=== PATIENT | male | born 1965 | race Caucasian/White ===

== ENCOUNTER 2016-03-23 15:27 | Outpatient (RCR) | payer MEDICARE, MEDICAID ==
--- OUTSIDE RECORDS SUMMARY | 2016-03-16 08:58 | XMS REPORT | Continuity of Care Document ---
Author Author [facility] Organization [facility] Address Unknown Phone Unavailable Care Team Providers Care Coat Operator Insulator Name Role Phone BRIDGETT RIVERA MD PCP Insurance Providers Payer Name Policy Number Subscriber Name Relationship Wps Medicare [id number] Jaleel Soliman 18 Self / Same As Patient [facility] [employer]p [id number] Jaleel Soliman 18 Self / Same As Patient Advance Directives Directive Response Recorded Date/Time Advance Directives No 07/30/14 9:42am Health Care Power of State Patrol Officer Y Sister Kimmy Barajas 07/30/14 9:42am Organ Donor No 07/30/14 9:42am Resuscitation Status Full Code 07/30/14 9:42am Problems Medical Problems Problem Onset Date Status Hyperthermia Unknown Active Sepsis Unknown Active Medications Medication Dose Route Sig Days/Qty Instructions Order Date Discontinued Date Status Bethanechol Chloride 50 Mg PO THREE TIMES A DAY 10/20/13 Active Phenytoin Sodium 400 Mg PO BEDTIME TAKE 3 (100MG) TABS 10/20/13 Discontinued Furosemide (Lasix) 20 Mg PO DAILY 10/20/13 11/01/13 Discontinued Atenolol 25 Mg PO DAILY 10/20/13 Active Loratadine 10 Mg PO DAILY PRN EYE REDNESS 10/20/13 05/07/14 Discontinued Simvastatin 40 Mg PO BEDTIME 10/20/13 05/07/14 Discontinued Hydrochlorothiazide 25 Mg PO DAILY 10/30/13 11/01/13 Discontinued Alprazolam 0.25 Mg PO THREE TIMES A DAY PRN ANXIETY 11/01/13 Discontinued Tamsulosin HCl 0.4 Mg PO AFTER EVENING MEAL 02/05/14 05/07/14 Discontinued Phenytoin Sodium 400 Mg PO BEDTIME 02/07/14 05/07/14 Discontinued Multivitamin 1 Tab PO DAILY 04/27/14 05/07/14 Discontinued Acidophilus 1 Tab.chew PO BEFORE MEALS 30 Qty 05/07/14 05/21/14 Discontinued [Phenytoin Sodium] 400 Mg PO BEDTIME 30 Days 05/07/14 05/21/14 Discontinued Multivitamins/Minerals Therap 1 Ea PO DAILY@07 30 Days 05/07/14 Discontinued [Loratadine] 10 Mg PO DAILY PRN EYE REDNESS 14 Qty 05/07/14 05/21/14 Discontinued Tamsulosin HCl 0.4 Mg PO DAILY 30 Days 05/07/14 05/21/14 Discontinued [Simvastatin] 40 Mg PO BEDTIME 30 Days 05/07/14 05/21/14 Discontinued Acidophilus 1 Tab.chew PO BEFORE MEALS 05/21/14 07/30/14 Discontinued Phenytoin Sodium 300 Mg PO BEDTIME TAKES 3 (100MG) CAPSULES 05/21/14 Active Multivitamin 1 Tab PO DAILY 05/21/14 07/30/14 Discontinued Loratadine 10 Mg PO DAILY PRN ALLERGIES 05/21/14 Active Tamsulosin HCl 0.4 Mg PO AFTER EVENING MEAL 05/21/14 Active Simvastatin 40 Mg PO BEDTIME 05/21/14 Active Furosemide (Lasix) 1 Each PO DAILY 07/30/14 Active Hydrochlorothiazide 25 Mg PO DAILY 07/30/14 Active Social History Social History Problem Response Recorded Date/Time Alcohol Use Denies Use 05/19/2014 6:53pm Recreational Drug Use No 05/19/2014 6:53pm Recent Foreign Travel No 02/07/2014 7:27am Recent Infectious Disease Exposure No 02/07/2014 7:27am Hospitalization with Isolation Denies 02/10/2014 1:57pm Smoking Status Never a Smoker 07/30/2014 9:44am Query Response Start Date Stop Date Smoking Status Never a Smoker Hospital Discharge Instructions No hospital discharge instructions. Plan of Care No plan of care. Functional Status No functional status results. Allergies, Adverse Reactions, Alerts Allergen Type Severity Reaction Status Last Updated No Known Drug Allergies Active 07/07/13 Immunizations Name Given Type Date of Pneumonia Vaccine 02/09/14 Historical Date of Influenza Vaccine 02/09/14 Historical Hepatitis A No Historical Hepatitis B No Historical Tetanus Booster (TDap) Unknown Historical Vital Signs Acute Vital Signs Vital Response Date/Time Temperature (Fahrenheit) 98.5 degrees F (97.6 - 99.5) Temperature (Calculated Celsius) 36.78004 degrees C (36.4 - 37.5) Temperature Source Tympanic Pulse Rate (adult) 103 bpm (60 - 90) Respiratory Rate 20 bpm (12 - 24) O2 Sat by Pulse Oximetry 98 % (88 - 100) Blood Pressure 127/79 mm Hg Pain Pain Intensity 0 Height (Feet) 5 feet Height (Inches) 8.00 inches Height (Calculated Centimeters) 172.777054 cm Weight (Pounds) 141 pounds Weight (Ounces) 12.8 oz Weight (Calculated Grams) 14069.399 gm Weight (Calculated Kilograms) 64.068361 kilograms Height 5 ft 8 in Weight 141 lb Body Mass Index 21.6 kg/m^2 Results Laboratory Results Test Name Result Units Flags Reference Collection Date/Time Result Date/ Time Comments White Blood Count 4.9 10^3/uL 4.3-11.0 06/26/2014 3:12pm 06/26/2014 3: 15pm Red Blood Count 3.84 10^6/uL L 4.35-5.85 06/26/2014 3:12p06/26/2014 3: 15pm Hemoglobin 11.9 G/DL L 13.3-17.7 06/26/2014 3:12p06/26/2014 3:15pm Hematocrit 36 % L 40-54 06/26/2014 3:12pm 06/26/2014 3:15pm Mean Corpuscular Volume 93 FL 80-99 06/26/2014 3:12p06/26/2014 3: 15pm Mean Corpuscular Hemoglobin 31 PG 25-34 06/26/2014 3:12p06/26/2014 3: 15pm Mean Corpuscular Hemoglobin Concent 33 G/DL 32-36 06/26/2014 3: 3:15pm Red Cell Distribution Width 14.0 % 10.0-14.5 06/26/2014 3:2014 3:15pm Platelet Count 195 10^3/uL 130-400 06/26/2014 3:06/26/2014 3:15pm Mean Platelet Volume 9.4 FL 7.4-10.4 06/26/2014 3:06/26/2014 3: 15pm Neutrophils (%) (Auto) 73 % 42-75 06/26/2014 3:06/26/2014 3:15pm Lymphocytes (%) (Auto) 16 % 12-44 06/26/2014 3:06/26/2014 3:15pm Monocytes (%) (Auto) 10 % 0-12 06/26/2014 3:06/26/2014 3:15pm Eosinophils (%) (Auto) 1 % 0-10 06/26/2014 3:06/26/2014 3:15pm Basophils (%) (Auto) 0 % 0-10 06/26/2014 3:06/26/2014 3:15pm Neutrophils # (Auto) 3.6 X 10^3 1.8-7.8 06/26/2014 3:06/26/2014 3: 15pm Lymphocytes # (Auto) 0.8 X 10^3 L 1.0-4.0 06/26/2014 3:06/26/2014 3: 15pm Monocytes # (Auto) 0.5 X 10^3 0.0-1.0 06/26/2014 3:06/26/2014 3: 15pm Eosinophils # (Auto) 0.0 10^3/uL 0.0-0.3 06/26/2014 3:06/26/2014 3 :15pm Basophils # (Auto) 0.0 10^3/uL 0.0-0.1 06/26/2014 3:06/26/2014 3: 15pm Sodium Level 141 MMOL/L 135-145 06/26/2014 3:06/26/2014 3:43pm Potassium Level 4.8 MMOL/L 3.6-5.0 06/26/2014 3:06/26/2014 3:43pm Chloride Level 105 MMOL/L 98-107 06/26/2014 3:06/26/2014 3:43pm Carbon Dioxide Level 28 MMOL/L 21-32 06/26/2014 3:06/26/2014 3: 43pm Blood Urea Nitrogen 12 MG/DL 7-18 06/26/2014 3:06/26/2014 3:43pm Creatinine 1.00 MG/DL 0.60-1.30 06/26/2014 3:06/26/2014 3:43pm BUN/Creatinine Ratio 06/26/2014 3:06/26/2014 3:43pm Estimat Glomerular Filtration Rate > 60 06/26/2014 3:2014 3:43pm GFR INTERPRETIVE DATA UNITS FOR ESTIMATED GFR (eGFR): mL/min/1.73 M2 REFERENCE RANGE FOR ESTIMATED GFR (eGFR) eGFR NORMAL eGFR >60 MODERATELY DECREASED eGFR 30-59 SEVERLY DECREASED eGFR 15-29 KIDNEY FAILURE <15 (OR DIALYSIS) Glucose Level 99 MG/DL 70-105 06/26/2014 3:06/26/2014 3:43pm Calcium Level 9.1 MG/DL 8.5-10.1 06/26/2014 3:06/26/2014 3:43pm Magnesium Level 1.7 MG/DL L 1.8-2.4 04/17/2014 10:55am 04/17/2014 11: 32am Total Bilirubin 0.3 MG/DL 0.1-1.0 06/26/2014 3:06/26/2014 3:43pm Alkaline Phosphatase 175 U/L H 40-136 06/26/2014 3:06/26/2014 3: 43pm Aspartate Amino Transf (AST/SGOT) 23 U/L 5-34 06/26/2014 3:2014 3:43pm Alanine Aminotransferase (ALT/SGPT) 10 U/L 0-55 06/26/2014 3:06/26 3:43pm Total Protein 6.4 G/DL 6.4-8.2 06/26/2014 3:06/26/2014 3:43pm Albumin 3.5 G/DL 3.2-4.5 06/26/2014 3:06/26/2014 3:43pm Thyroid Stimulating Hormone (TSH) 2.21 UIU/ML 0.35-4.94 06/26/2014 3: 12pm 06/26/2014 4:37pm Free Thyroxine 0.72 NG/DL 0.70-1.48 06/26/2014 3:12pm 06/26/2014 4: 37pm White Blood Count 4.7 10^3/uL 4.3-11.0 07/24/2014 2:59pm 07/24/2014 3: 03pm Red Blood Count 4.16 10^6/uL L 4.35-5.85 07/24/2014 2:59pm 07/24/2014 3: 03pm Hemoglobin 12.8 G/DL L 13.3-17.7 07/24/2014 2:59pm 07/24/2014 3:03pm Hematocrit 38 % L 40-54 07/24/2014 2:59pm 07/24/2014 3:03pm Mean Corpuscular Volume 92 FL 80-99 07/24/2014 2:59pm 07/24/2014 3: 03pm Mean Corpuscular Hemoglobin 31 PG 25-34 07/24/2014 2:59pm 07/24/2014 3: 03pm Mean Corpuscular Hemoglobin Concent 33 G/DL 32-36 07/24/2014 2:59pm 3:03pm Red Cell Distribution Width 13.2 % 10.0-14.5 07/24/2014 2:59pm 2014 3:03pm Platelet Count 163 10^3/uL 130-400 07/24/2014 2:59pm 07/24/2014 3:03pm Mean Platelet Volume 10.6 FL H 7.4-10.4 07/24/2014 2:59pm 07/24/2014 3: 03pm Neutrophils (%) (Auto) 73 % 42-75 07/24/2014 2:59pm 07/24/2014 3:03pm Lymphocytes (%) (Auto) 17 % 12-44 07/24/2014 2:59pm 07/24/2014 3:03pm Monocytes (%) (Auto) 9 % 0-12 07/24/2014 2:59pm 07/24/2014 3:03pm Eosinophils (%) (Auto) 1 % 0-10 07/24/2014 2:59pm 07/24/2014 3:03pm Basophils (%) (Auto) 0 % 0-10 07/24/2014 2:59pm 07/24/2014 3:03pm Neutrophils # (Auto) 3.4 X 10^3 1.8-7.8 07/24/2014 2:59pm 07/24/2014 3: 03pm Lymphocytes # (Auto) 0.8 X 10^3 L 1.0-4.0 07/24/2014 2:59pm 07/24/2014 3: 03pm Monocytes # (Auto) 0.4 X 10^3 0.0-1.0 07/24/2014 2:59pm 07/24/2014 3: 03pm Eosinophils # (Auto) 0.0 10^3/uL 0.0-0.3 07/24/2014 2:59pm 07/24/2014 3 :03pm Basophils # (Auto) 0.0 10^3/uL 0.0-0.1 07/24/2014 2:59pm 07/24/2014 3: 03pm Sodium Level 142 MMOL/L 135-145 07/24/2014 2:59pm 07/24/2014 3:37pm Potassium Level 4.3 MMOL/L 3.6-5.0 07/24/2014 2:59pm 07/24/2014 3:37pm Chloride Level 107 MMOL/L 98-107 07/24/2014 2:59pm 07/24/2014 3:37pm Carbon Dioxide Level 25 MMOL/L 21-32 07/24/2014 2:59pm 07/24/2014 3: 37pm Blood Urea Nitrogen 11 MG/DL 7-18 07/24/2014 2:59pm 07/24/2014 3:37pm Creatinine 1.09 MG/DL 0.60-1.30 07/24/2014 2:59pm 07/24/2014 3:37pm BUN/Creatinine Ratio 10 07/24/2014 2:59pm 07/24/2014 3:37pm Estimat Glomerular Filtration Rate > 60 07/24/2014 2:59pm 2014 3:37pm GFR INTERPRETIVE DATA UNITS FOR ESTIMATED GFR (eGFR): mL/min/1.73 M2 REFERENCE RANGE FOR ESTIMATED GFR (eGFR) eGFR NORMAL eGFR >60 MODERATELY DECREASED eGFR 30-59 SEVERLY DECREASED eGFR 15-29 KIDNEY FAILURE <15 (OR DIALYSIS) Glucose Level 83 MG/DL 70-105 07/24/2014 2:59pm 07/24/2014 3:37pm Calcium Level 9.2 MG/DL 8.5-10.1 07/24/2014 2:59pm 07/24/2014 3:37pm Magnesium Level 2.0 MG/DL 1.8-2.4 07/24/2014 2:59pm 07/24/2014 3:37pm Total Bilirubin 0.3 MG/DL 0.1-1.0 07/24/2014 2:59pm 07/24/2014 3:37pm Alkaline Phosphatase 160 U/L H 40-136 07/24/2014 2:59pm 07/24/2014 3: 37pm Aspartate Amino Transf (AST/SGOT) 27 U/L 5-34 07/24/2014 2:59pm 2014 3:37pm Alanine Aminotransferase (ALT/SGPT) 17 U/L 0-55 07/24/2014 2:59pm 07/24 3:37pm Total Protein 6.8 G/DL 6.4-8.2 07/24/2014 2:59pm 07/24/2014 3:37pm Albumin 3.8 G/DL 3.2-4.5 07/24/2014 2:59pm 07/24/2014 3:37pm Procedures Procedure Status Date Provider(s) Diagnostic colonoscopy completed 07/30/14 CELINE PELAEZ MD Encounters Encounter Location Date/Time Registered Surgical Day Care [facility] 07/30/14 9:08am Registered Clinic Via [facility] 07/26/14 6:05am Registered Recurring [facility] 07/24/14 2:52pm Discharged Recurring [facility] 04/04/14 9:13am
[2016-03-16 09:43] LABS: BASOPHILS % (AUTO) 0 % (0-10); EOSINOPHILS # (AUTO) 0.1 10^3/uL (0.0-0.3); EOSINOPHILS % (AUTO) 1 % (0-10); LYMPHOCYTES # (AUTO) 0.7 X 10^3 (1.0-4.0); LYMPHOCYTES % (AUTO) 11 % (12-44); MEAN CORPUSCULAR HEMOGLOBIN 32 PG (25-34); MEAN CORPUSCULAR HGB CONC 35 G/DL (32-36); MEAN CORPUSCULAR VOLUME 90 FL (80-99); MEAN PLATELET VOLUME 11.1 FL (7.4-10.4); MONOCYTES # (AUTO) 0.6 X 10^3 (0.0-1.0); MONOCYTES % (AUTO) 9 % (0-12); NEUTROPHILS # (AUTO) 4.9 X 10^3 (1.8-7.8); NEUTROPHILS % (AUTO) 78 % (42-75); PLATELET COUNT 138 10^3/uL (130-400); RED BLOOD COUNT 4.63 10^6/uL (4.35-5.85); RED CELL DISTRIBUTION WIDTH 13.4 % (10.0-14.5); WHITE BLOOD COUNT 6.3 10^3/uL (4.3-11.0)
[2016-03-16 10:10] LABS: CREATININE SERUM 1.37 MG/DL (0.60-1.30); POTASSIUM 3.6 MMOL/L (3.6-5.0)
[2016-03-16 10:11] LABS: ALBUMIN 4.3 G/DL (3.2-4.5); BILIRUBIN,TOTAL 0.4 MG/DL (0.1-1.0); CALCIUM 9.5 MG/DL (8.5-10.1); TOTAL PROTEIN 7.2 G/DL (6.4-8.2)
[~2016-03-23 15:27] MED LIST: ACID1TAB PO; ACID1TAB5 PO; ALPR.25T PO; ATEN-147 PO; BETH50TA PO; FURO20TA4 PO; HCTZ12.5T PO; HYDR25TA4 PO; LORA10TA7 PO; LORA10TA76 PO; Loratadine PO; MULT-974 PO; MULT1TAB63 PO; PHEN-633 PO; PHN100C PO; Phenytoin Sodium PO; SIMV40TA4 PO; Simvastatin PO; TMSL.4C PO; Tramadol Hcl PO
== END 2016-06-14 | disposition home or self-care (01) ==
LOC: ONC 15:27
PROVIDERS: ATTEND Internal Medicine Hematology & Oncology
DX: C20 Malignant neoplasm of rectum (principal); I10 Essential (primary) hypertension; N13.5 Crossing vessel and stricture of ureter without hydronephrosis; N31.9 Neuromuscular dysfunction of bladder, unspecified; E78.5 Hyperlipidemia, unspecified; F70 Mild intellectual disabilities
CPT/HCPCS: 36415; 80053; 82378; 85025; 99213

== ENCOUNTER → 2016-06-18 | Outpatient (CLI) | payer MEDICARE, MEDICAID ==
[~2016-06-18] MED LIST changes: +BARIUM SUSPENSION 2.1% (VANILLA SILQ) 450 ML PO ONE; +CATHETER FLUSH 10 ML SYR IV PRN; +IOHEXOL 350 MG/ML 100 ML (OMNIPAQUE 350) VIAL IV ONE; +NS 100 ML (IVPB) BAG IV ONE
--- OUTSIDE RECORDS SUMMARY | 2016-06-18 12:03 | XMS REPORT | Continuity of Care Document ---
Author Author [facility] Organization [facility] Address Unknown Phone Unavailable Care Team Providers Care Vocational Auto Body Instructor Name Role Phone BRIDGETT RIVERA MD PCP Insurance Providers Payer Name Policy Number Subscriber Name Relationship Wps Medicare [id number] Jaleel Soliman 16 Self / Same As Patient [facility] [employer] [id number] Jaleel Soliman 16 Self / Same As Patient Advance Directives Directive Response Recorded Date/Time Advance Directives No 07/30/14 9:42am Health Care Power of Meeting Manager Y Sister Kimmy Barajas 07/30/14 9:42am Organ [...] F (97.6 - 99.5) Temperature (Calculated Celsius) 36.42819 degrees C (36.4 - 37.5) Temperature Source Tympanic Pulse Rate (adult) 103 bpm (60 - 90) Respiratory Rate 20 bpm (12 - 24) O2 Sat by Pulse Oximetry 98 % (88 - 100) Blood Pressure 127/79 mm Hg Pain Pain Intensity 0 Height (Feet) 5 feet Height (Inches) 8.00 inches Height (Calculated Centimeters) 172.987922 cm Weight (Pounds) 141 pounds Weight (Ounces) 12.8 oz Weight (Calculated Grams) 32649.399 gm Weight (Calculated Kilograms) 64.466335 kilograms Height 5 ft 8 in Weight [...] Location Date/Time Registered Surgical Day Care [facility] 07/30/14 9:08am Registered Clinic [facility] 07/26/14 6:05am Registered Recurring [facility] 07/24/14 2:52pm Discharged Recurring [facility] 04/04/14 9:13am
--- NOTE | 2016-06-18 15:29 | Diagnostic Imaging Report ---
PROCEDURE: CT abdomen and pelvis with contrast. TECHNIQUE: Multiple contiguous axial images were obtained through the abdomen and pelvis after administration of intravenous contrast. INDICATION: Rectal CA. Comparison with 03/16/2016. FINDINGS: The lung bases are clear. The liver appears normal. The gallbladder and bile ducts are normal. Pancreas and spleen are normal. The adrenal glands show a small fatty lesion on the left which is unchanged. There is bilateral hydronephrosis with the only a thin mantle of cortex remaining on the left. The right kidney shows UPJ stent present in good position. There is contrast in the bladder on delayed images indicating the UPJ stent is patent. There is good opacification of the aorta and abdominal vessels following IV contrast. The aorta appears normal. Oral contrast is present in the stomach and small bowel which are normal. The colon shows normal stool and gas pattern. There is some diverticulosis of the descending and sigmoid colon without evidence of diverticulitis. There is anastomotic suture ring in the lower rectum consistent with previous surgery. The perirectal tissue planes remain well preserved. Prostate and seminal vesicles are not enlarged. No adenopathy of pathologic size. There is no free air or free fluid. Bone windows show no blastic or lytic lesions. IMPRESSION: 1. No changes have occurred to suggest metastatic or recurrent malignancy. 2. Chronic renal changes are noted with right UPJ stent in good position and remaining patent. Dictated by: Dictated on workstation # [id number]
== END ==
LOC: RAD 12:00
PROVIDERS: ATTEND Internal Medicine Hematology & Oncology
DX: C20 Malignant neoplasm of rectum (principal); N13.39 Other hydronephrosis
CPT/HCPCS: 74177

== ENCOUNTER 2016-08-06 14:30 | Outpatient (RCR) | payer MEDICARE, MEDICAID ==
--- OUTSIDE RECORDS SUMMARY | 2016-06-17 15:44 | XMS REPORT | Continuity of Care Document ---
Author Author [facility] Organization [facility] Address Unknown Phone Unavailable Care Team Providers Care Compound Worker Name Role Phone BRIDGETT RIVERA MD PCP Insurance Providers Payer Name Policy Number Subscriber Name Relationship Wps Medicare [id number] Jaleel Soliman 18 Self / Same As Patient [facility] [employer] [id number] Jaleel Soliman 18 Self / Same As Patient Advance Directives Directive Response Recorded Date/Time Advance Directives No 07/30/14 9:42am Health Care Power of Veterinary Assistant Technician Y Sister Kimmy Barajas 07/30/14 9:42am Organ [...] F (97.6 - 99.5) Temperature (Calculated Celsius) 36.19112 degrees C (36.4 - 37.5) Temperature Source Tympanic Pulse Rate (adult) 103 bpm (60 - 90) Respiratory Rate 20 bpm (12 - 24) O2 Sat by Pulse Oximetry 98 % (88 - 100) Blood Pressure 127/79 mm Hg Pain Pain Intensity 0 Height (Feet) 5 feet Height (Inches) 8.00 inches Height (Calculated Centimeters) 172.057704 cm Weight (Pounds) 141 pounds Weight (Ounces) 12.8 oz Weight (Calculated Grams) 26763.399 gm Weight (Calculated Kilograms) 64.886838 kilograms Height 5 ft 8 in Weight [...] Location Date/Time Registered Surgical Day Care Via [facility] 07/30/14 9:08am Registered Clinic [facility] 07/26/14 6:05am Registered Recurring [facility] 07/24/14 2:52pm Discharged Recurring [facility] 04/04/14 9:13am
[2016-06-17 15:49] LABS: BASOPHILS % (AUTO) 0 % (0-10); EOSINOPHILS % (AUTO) 0 % (0-10); LYMPHOCYTES # (AUTO) 0.9 X 10^3 (1.0-4.0); LYMPHOCYTES % (AUTO) 10 % (12-44); MEAN CORPUSCULAR HEMOGLOBIN 31 PG (25-34); MEAN CORPUSCULAR HGB CONC 34 G/DL (32-36); MEAN CORPUSCULAR VOLUME 92 FL (80-99); MEAN PLATELET VOLUME 10.8 FL (7.4-10.4); MONOCYTES # (AUTO) 0.8 X 10^3 (0.0-1.0); MONOCYTES % (AUTO) 9 % (0-12); NEUTROPHILS # (AUTO) 7.5 X 10^3 (1.8-7.8); NEUTROPHILS % (AUTO) 81 % (42-75); PLATELET COUNT 131 10^3/uL (130-400); RED BLOOD COUNT 4.47 10^6/uL (4.35-5.85); RED CELL DISTRIBUTION WIDTH 13.6 % (10.0-14.5); WHITE BLOOD COUNT 9.2 10^3/uL (4.3-11.0)
[2016-06-17 16:10] LABS: ALANINE AMINOTRANSFERASE 25 U/L (0-55); ALBUMIN 4.1 G/DL (3.2-4.5); ANION GAP 9 MMOL/L (5-14); ASPARTATE AMINO TRANSFERASE 29 U/L (5-34); BILIRUBIN,TOTAL 0.4 MG/DL (0.1-1.0); BLOOD UREA NITROGEN 13 MG/DL (7-18); BUN/CREATININE RATIO 11; CALCIUM 8.7 MG/DL (8.5-10.1); CARBON DIOXIDE 25 MMOL/L (21-32); CHLORIDE 105 MMOL/L (98-107); CREATININE SERUM 1.23 MG/DL (0.60-1.30); GFR ESTIMATED > 60; GLUCOSE 84 MG/DL (70-105); POTASSIUM 4.5 MMOL/L (3.6-5.0); SODIUM 139 MMOL/L (135-145); TOTAL PROTEIN 6.8 G/DL (6.4-8.2)
[~2016-08-06 14:30] MED LIST changes: -BARIUM SUSPENSION 2.1% (VANILLA SILQ) 450 ML PO ONE; -CATHETER FLUSH 10 ML SYR IV PRN; -IOHEXOL 350 MG/ML 100 ML (OMNIPAQUE 350) VIAL IV ONE; -NS 100 ML (IVPB) BAG IV ONE
[2016-08-06 15:16] LABS: BASOPHILS % (AUTO) 0 % (0-10); EOSINOPHILS % (AUTO) 1 % (0-10); LYMPHOCYTES # (AUTO) 0.7 X 10^3 (1.0-4.0); LYMPHOCYTES % (AUTO) 10 % (12-44); MEAN CORPUSCULAR HEMOGLOBIN 31 PG (25-34); MEAN CORPUSCULAR HGB CONC 35 G/DL (32-36); MEAN CORPUSCULAR VOLUME 90 FL (80-99); MEAN PLATELET VOLUME 10.9 FL (7.4-10.4); MONOCYTES # (AUTO) 0.6 X 10^3 (0.0-1.0); MONOCYTES % (AUTO) 9 % (0-12); NEUTROPHILS # (AUTO) 5.3 X 10^3 (1.8-7.8); NEUTROPHILS % (AUTO) 80 % (42-75); PLATELET COUNT 159 10^3/uL (130-400); RED CELL DISTRIBUTION WIDTH 14.1 % (10.0-14.5); WHITE BLOOD COUNT 6.5 10^3/uL (4.3-11.0)
[2016-08-06 15:56] LABS: ALBUMIN 4.2 G/DL (3.2-4.5); BILIRUBIN,TOTAL 0.3 MG/DL (0.1-1.0); CALCIUM 9.5 MG/DL (8.5-10.1); CREATININE SERUM 1.44 MG/DL (0.60-1.30); TOTAL PROTEIN 7.1 G/DL (6.4-8.2)
== END 2016-09-15 | disposition home or self-care (01) ==
LOC: ONC 14:30
PROVIDERS: ATTEND Internal Medicine Hematology & Oncology
DX: C20 Malignant neoplasm of rectum (principal); I10 Essential (primary) hypertension; N13.5 Crossing vessel and stricture of ureter without hydronephrosis; N31.9 Neuromuscular dysfunction of bladder, unspecified; E78.5 Hyperlipidemia, unspecified; F70 Mild intellectual disabilities; Z79.899 Other long term (current) drug therapy
CPT/HCPCS: 36415; 80053; 82378; 85025; 99213

== ENCOUNTER 2016-12-10 13:22 | Emergency (ER) | payer MEDICAID, MEDICARE ==
[~2016-12-10] VITALS: Ht 175.3 cm; Wt 80.7 kg
--- OUTSIDE RECORDS SUMMARY | 2016-12-10 13:28 | XMS REPORT ---
Author Author KAREEM BARTHOLOMEW [facility] [employer] Address Unknown Phone Unavailable Care Team Providers Care Pairer Odds Name Role Phone KAREEM BARTHOLOMEW CP Unavailable Allergies, Adverse Reactions, Alerts Substance Reaction Event Type N.K.D.A. Info Not Available Non Drug Allergy Problems Problem Type Condition Code Onset Dates Condition Status Assessment Encounter for dental examination Z01.20 Active Problem Encounter for dental examination Z01.20 Active Medications Medication Code System Code Instructions Start Date End Date Status Dosage Dilantin [facility] [address]-93 100 MG Orally Three times a day 1 capsule Atenolol [facility] [address]-57 25 MG Orally Once a day 1 tablet Simvastatin [facility] [address]-25 40 MG Orally Once a day 1 tablet in the evening Procedures Procedure Coding System Code Date TOPICAL FLUORIDE VARNISH CPT-4 D1206 Feb 25, 2015 PROPHYLAXIS - ADULT CPT-4 D1110 Feb 25, 2015 Vital Signs Date/Time: Feb 25, 2015 Blood Pressure Diastolic 51 mmHg Blood Pressure Systolic 130 mmHg Cardiac Monitoring Heart Rate 49 bpm Results No Known Results Summary Purpose eClinicalWorks Submission
--- OUTSIDE RECORDS SUMMARY | 2016-12-10 13:28 | XMS REPORT ---
Author Author LEAH NJ [facility] [employer] Address Unknown Phone Unavailable Care Team Providers Care Vegetable Tier Name Role Phone LEAH [place] Unavailable Allergies No Known Allergies Problems Problem Type Condition ICD-9 Code Onset Dates Condition Status Assessment Dental examination V72.2 Active Medications No Known Medications Procedures Procedure Coding System Code Date RESIN COMPOS - ONE SURFACE ANTERIOR CPT-4 D2330 November 21, 2014 Results No Known Results Summary Purpose eClinicalWorks Submission
--- OUTSIDE RECORDS SUMMARY | 2016-12-10 13:28 | XMS REPORT ---
Author Author LEAH [place] [facility] [employer] Address Unknown Phone Unavailable Care Team Providers Care Gender Studies Professor Name Role Phone LEAH [place] CP Unavailable Allergies, Adverse Reactions, Alerts Substance Reaction Event Type N.K.D.A. Info Not Available Non Drug Allergy Problems Problem Type Condition Code Onset Dates Condition Status Problem Encounter for dental examination Z01.20 Active Assessment Dental examination Z01.20 Active Problem Encounter for dental examination and cleaning without abnormal findings Z01.20 Active Medications Medication Code System Code Instructions Start Date End Date Status Dosage Simvastatin [facility] [address]-13 40 MG Orally Once a day 1 tablet in the evening Atenolol [facility] [address]-43 25 MG Orally Once a day 1 tablet Dilantin [facility] [address]-72 100 MG Orally Three times a day 1 capsule Procedures Procedure Coding System Code Date RESIN COMPOS - 3 SURFACES ANTERIOR CPT-4 D2332 September 25, 2015 Billing Notes on claim CPT-4 EC109 September 25, 2015 RESIN COMPOS - 2 SURFACES ANTERIOR CPT-4 D2331 September 25, 2015 Vital Signs Date/Time: September 25, 2015 Blood Pressure Diastolic 67 mmHg Blood Pressure Systolic 121 mmHg Results No Known Results Summary Purpose eClinicalWorks Submission
--- OUTSIDE RECORDS SUMMARY | 2016-12-10 13:29 | XMS REPORT ---
Author FRANCINE Roberson [facility] [employer] Address Unknown Phone Unavailable Care Team Providers Care Hydraulic Lift Driver Name Role Phone FRANCINE HO CP Unavailable Allergies, Adverse Reactions, Alerts Substance Reaction Event Type N.K.D.A. Info Not Available Non Drug Allergy Problems Problem Type Condition Code Onset Dates Condition Status Problem Encounter for dental examination Z01.20 Active Assessment Dental examination Z01.20 Active Problem Encounter for dental examination and cleaning without abnormal findings Z01.20 Active Medications Medication Code System Code Instructions Start Date End Date Status Dosage Atenolol [facility] [address]-82 25 MG Orally Once a day 1 tablet Dilantin [facility] [address]-96 100 MG Orally Three times a day 1 capsule Simvastatin [facility] [address]-61 40 MG Orally Once a day 1 tablet in the evening Procedures Procedure Coding System Code Date PROPHYLAXIS - ADULT CPT-4 D1110 Feb 28, 2016 TOPICAL FLUORIDE VARNISH CPT-4 D1206 Feb 28, 2016 PERIODIC ORAL EXAMINATION CPT-4 D0120 Feb 28, 2016 Vital Signs Date/Time: Feb 28, 2016 Blood Pressure Diastolic 74 mmHg Blood Pressure Systolic 131 mmHg Results No Known Results Summary Purpose eClinicalWorks Submission
--- NOTE | 2016-12-10 13:45 | ED GU-Male ---
General Chief Complaint: -Male Stated Complaint: SWEATING,CANNOT URINATE,HAS A STINT Source: patient, family Exam Limitations: no limitations History of Present Illness Time seen by provider: 13:38 Initial Comments The patient is a 51-year-old white male who was brought to the emergency room by his sister. She reports that he has not been performing well this week and in fact the performance has been declining. He has told her that he was urinating but tells us he has not for 3 days. She brought him today because he was trembling and sweating. They are not aware of fever. He has had a previous partial colectomy for carcinoma. He has also had stenting of one kidney because of ureteral obstruction but otherwise apparent normal function. She states that the other kidney is basically nonfunctional. He seems unable to fully express himself. Timing/Duration: this morning Severity/Quality: moderate Location: unknown Radiation: none Activities at Onset: none Allergies and Home Medications Allergies Coded Allergies: No Known Drug Allergies (Unverified , 07/07/13) Home Medications Atenolol 25 Mg Tab, 25 MG PO DAILY, (Reported) Bethanechol Chloride 50 Mg Tablet, 50 MG PO TID, (Reported) Furosemide 20 Mg Tablet, 1 EACH PO DAILY, (Reported) Hydrochlorothiazide 12.5 Mg Cap, 25 MG PO DAILY, (Reported) Loratadine 10 Mg Tablet, 10 MG PO DAILY PRN for ALLERGIES, (Reported) Phenytoin Sodium 100 Mg Cap, 300 MG PO HS, (Reported) TAKES 3 (100MG) CAPSULES Simvastatin 40 Mg Tablet, 40 MG PO HS, (Reported) Tamsulosin Hcl 0.4 Mg Cap, 0.4 MG PO AFTER EVENING MEAL, (Reported) Constitutional: see HPI EENTM: no symptoms reported Respiratory: no symptoms reported Cardiovascular: no symptoms reported Gastrointestinal: loss of appetite, nausea Genitourinary: see HPI Musculoskeletal: muscle twitching, muscle weakness Skin: no symptoms reported Psychiatric/Neurological: No Symptoms Reported Endocrine: No Symptoms Reported Hematologic/Lymphatic: No Symptoms Reported Past Qsorvao-Uwhwbg-Ododne Hx Patient Social History Recent Foreign Travel: No Contact w/Someone Who Travel: No Immunizations Up To Date Tetanus Booster (TDap): Unknown PED Vaccines UTD: No Date of Pneumonia Vaccine: Feb 09, 2014 Date of Influenza Vaccine: Feb 09, 2014 Seasonal Allergies Seasonal Allergies: No Surgeries HX Surgeries: Yes (KIDNEY STENTS, BOWEL RESECTION) Surgeries: Bowel Surgery Respiratory Hx Respiratory Disorders: No Cardiovascular Hx Cardiac Disorders: Yes Cardiac Disorders: High Cholesterol, Hypertension Neurological Hx Neurological Disorders: Yes (NO SEIZURE FOR 10 YRS) Neurological Disorders: Seizure Disorder Reproductive System Hx Reproductive Disorders: No Genitourinary Hx Genitourinary Disorders: Yes Gastrointestinal Hx Gastrointestinal Disorders: Yes (COLON CANCER) Musculoskeletal Hx Musculoskeletal Disorders: No Endocrine Hx Endocrine Disorders: No HEENT HX ENT Disorders: Yes (GLASSES) Cancer Hx Cancer: Yes Cancer: Colon Psychosocial Hx Psychiatric Problems: No Integumentary HX Skin/Integumentary Disorder: No Blood Transfusions Hx Blood Disorders: No Family Medical History Family Medial History: Cancer 19 FATHER 19 MOTHER (UTERINE) Cancer of colon 19 FATHER Family history: Arthritis 19 FATHER 19 MOTHER History of - respiratory disease 19 MOTHER (COPD) Myocardial infarction 19 FATHER 19 MOTHER No Family History of: Abdominal aortic aneurysm Congenital heart disease Family history: Alzheimer's disease Family history: Asthma Family history: Breast disease Family history: Cardiovascular disease Family history: Diabetes mellitus Family history: Gastrointestinal disease Family history: Thyroid disorder Hereditary disease Kidney disease Prostate cancer Psychotic disorder Seizure disorder Stroke Physical Exam Vital Signs Vital Sign - Last 12Hours 12/10/16 13:30 Temp 98.2 Pulse 129 Resp 18 B/P (MAP) 135/93 Pulse Ox 100 Capillary Refill : General Appearance: other (anxious and tremulous white male) HEENT: normal ENT inspection Neck: full range of motion Cardiovascular: normal peripheral pulses, regular rate, rhythm, no edema, no gallop, no JVD, no murmur Respiratory: chest non-tender, lungs clear, normal breath sounds, no respiratory distress, no accessory muscle use Gastrointestinal: tenderness (generalized tenderness) Back: normal inspection Extremities: normal range of motion, non-tender, normal inspection, no pedal edema, no calf tenderness, normal capillary refill, pelvis stable Neurologic/Psychiatric: other (does not respond dramatically to questioning and his answers for him) Skin: normal color, warm/dry Lymphatic: no adenopathy Progress/Results/Core Measures Results/Orders Lab Results Laboratory Tests Test 12/10/16 14:01 Range/Units White Blood Count 8.4 4.3-11.0 10^3/uL Red Blood Count 4.08 L 4.35-5.85 10^6/uL Hemoglobin 12.4 L 13.3-17.7 G/DL Hematocrit 35 L 40-54 % Mean Corpuscular Volume 85 80-99 FL Mean Corpuscular Hemoglobin 30 25-34 PG Mean Corpuscular Hemoglobin Concent 36 32-36 G/DL Red Cell Distribution Width 13.2 10.0-14.5 % Platelet Count 95 L 130-400 10^3/uL Mean Platelet Volume 11.0 H 7.4-10.4 FL Neutrophils (%) (Auto) 87 H 42-75 % Lymphocytes (%) (Auto) 3 L 12-44 % Monocytes (%) (Auto) 10 0-12 % Eosinophils (%) (Auto) 0 0-10 % Basophils (%) (Auto) 0 0-10 % Neutrophils # (Auto) 7.3 1.8-7.8 X 10^3 Lymphocytes # (Auto) 0.3 L 1.0-4.0 X 10^3 Monocytes # (Auto) 0.9 0.0-1.0 X 10^3 Eosinophils # (Auto) 0.0 0.0-0.3 10^3/uL Basophils # (Auto) 0.0 0.0-0.1 10^3/uL Neutrophils % (Manual) 90 % Lymphocytes % (Manual) 5 % Monocytes % (Manual) 5 % Eosinophils % (Manual) 0 % Basophils % (Manual) 0 % Band Neutrophils 0 % Blood Morphology Comment NORMAL Sodium Level 128 L 135-145 MMOL/L Potassium Level 2.4 *L 3.6-5.0 MMOL/L Chloride Level 91 L 98-107 MMOL/L Carbon Dioxide Level 20 L 21-32 MMOL/L Anion Gap 17 H 5-14 MMOL/L Blood Urea Nitrogen 29 H 7-18 MG/DL Creatinine 1.75 H 0.60-1.30 MG/DL Estimat Glomerular Filtration Rate 41 BUN/Creatinine Ratio 17 Glucose Level 171 H 70-105 MG/DL Calcium Level 8.3 L 8.5-10.1 MG/DL Total Bilirubin 1.0 0.1-1.0 MG/DL Aspartate Amino Transf (AST/SGOT) 105 H 5-34 U/L Alanine Aminotransferase (ALT/SGPT) 80 H 0-55 U/L Alkaline Phosphatase 89 40-136 U/L Total Protein 6.9 6.4-8.2 GM/DL Albumin 3.5 3.2-4.5 GM/DL My Orders Orders - ODGERS,JULIA K MD Cbc With Automated Diff (12/10/16 13:35) Comprehensive Metabolic Panel (12/10/16 13:35) Ua Culture If Indicated (12/10/16 13:35) Rodriges Cath Insertion (12/10/16 13:35) Chest 1 View, Ap/Pa Only (12/10/16 13:48) Manual Differential (12/10/16 14:01) Vital Signs/I&O Vital Sign - Last 12Hours 12/10/16 13:30 Temp 98.2 Pulse 129 Resp 18 B/P (MAP) 135/93 Pulse Ox 100 Departure Communication Progress Notes The laboratory returned normal save a creatinine of 1.75 and a BUN of 29. The potassium was 2.4 which was somewhat compounding until I ask the sister who stated that indeed although it was not listed for me he does take a diuretic and does not use a potassium replacement supplement. Through 1 call at [employer] I spoke to a Dr. Lee. He has been accepted in transfer for urologic evaluation and hydration plus the potassium replacement. Impression Impression: Primary Impression: oliguria Disposition: XF SHT-TRM HOSP Condition: Stable/Unchanged Transfer Transfer Time: 15:20 Transfer Facility: [place], [place] Method of Transfer: Private Vehicle Departure-Patient Inst. Referrals: BRIDGETT RIVERA MD (PCP/Family) Primary Care Physician JULIA MORALES MD Dec 10, 2016 13:45
[2016-12-10 14:09] LABS: BASOPHILS % (AUTO) 0 % (0-10); EOSINOPHILS % (AUTO) 0 % (0-10); LYMPHOCYTES # (AUTO) 0.3 X 10^3 (1.0-4.0); LYMPHOCYTES % (AUTO) 3 % (12-44); MEAN CORPUSCULAR HEMOGLOBIN 30 PG (25-34); MEAN CORPUSCULAR HGB CONC 36 G/DL (32-36); MEAN CORPUSCULAR VOLUME 85 FL (80-99); MONOCYTES # (AUTO) 0.9 X 10^3 (0.0-1.0); MONOCYTES % (AUTO) 10 % (0-12); NEUTROPHILS # (AUTO) 7.3 X 10^3 (1.8-7.8); NEUTROPHILS % (AUTO) 87 % (42-75); PLATELET COUNT 95 10^3/uL (130-400); RED BLOOD COUNT 4.08 10^6/uL (4.35-5.85); RED CELL DISTRIBUTION WIDTH 13.2 % (10.0-14.5); WHITE BLOOD COUNT 8.4 10^3/uL (4.3-11.0)
--- NOTE | 2016-12-10 14:13 | Diagnostic Imaging Report ---
EXAMINATION: Portable upright radiograph of the chest. INDICATION: Trouble urinating. FINDINGS: The lungs are clear. The heart size is normal. No effusion or pneumothorax. The mediastinum and shady appear unremarkable. IMPRESSION: Unremarkable exam. Dictated by: Dictated on workstation # [id number]
[2016-12-10 14:27] LABS: ALBUMIN 3.5 GM/DL (3.2-4.5); CALCIUM 8.3 MG/DL (8.5-10.1); CREATININE SERUM 1.75 MG/DL (0.60-1.30); TOTAL PROTEIN 6.9 GM/DL (6.4-8.2)
[2016-12-10 14:28] LABS: POTASSIUM 2.4 MMOL/L (3.6-5.0)
[2016-12-10 14:42] LABS: BAND NEUTROPHILS 0 %; BASOPHILS % (MANUAL) 0 %; EOSINOPHILS % (MANUAL) 0 %; LYMPHOCYTES % (MANUAL) 5 %; NEUTROPHILS % (MANUAL) 90 %
[2016-12-10 16:18] VITALS: BP 128/84
== END 2016-12-10 16:18 | disposition short-term general hospital (02) ==
LOC: EDUNIT# 13:22 → ER 13:24
DX: R34 Anuria and oliguria (principal); I10 Essential (primary) hypertension; E78.00 Pure hypercholesterolemia, unspecified; Z79.899 Other long term (current) drug therapy; Z90.49 Acquired absence of other specified parts of digestive tract; Z96.0 Presence of urogenital implants; Z85.038 Personal history of other malignant neoplasm of large intestine
CPT/HCPCS: 36415; 51702; 71010; 80053; 85007; 85027

== ENCOUNTER → 2016-12-25 | Outpatient (CLI) | payer MEDICAID, MEDICARE ==
[~2016-12-25] MED LIST changes: +CATHETER FLUSH 10 ML SYR IV PRN; +IOHEXOL 350 MG/ML 100 ML (OMNIPAQUE 350) VIAL IV ONE; +NS 100 ML (IVPB) BAG IV ONE
--- NOTE | 2016-12-25 14:09 | Diagnostic Imaging Report ---
PROCEDURE: CT abdomen and pelvis with and without contrast. TECHNIQUE: Precontrast acquisitions were acquired through the abdomen and pelvis. Multiple contiguous axial images were obtained through the abdomen and pelvis after the administration of intravenous contrast. INDICATION: Rectal cancer. COMPARISON: Exam compared to 06/18/2016. FINDINGS: Chronic severe left hydronephrosis with marked cortical atrophy in the absence of substantial enhancement or contrast aggregation suggest a nonfunctioning kidney with chronic UPJ stenosis. Mild right hydronephrosis has not substantially changed. There is a right-sided double-J stent remaining in good position, looped proximally in the renal pelvis and distally in the bladder lumen. There is some induration and soft tissue thickening in the presacral and precoccygeal fat posterior to the rectal anastomosis. This is unchanged and commonly found post therapeutic. No fluid collection. No evidence for anastomotic leak or obstruction and no regional bowel wall thickening to suggest recurrence of neoplasm at that site. Some reflux of contrast into the distal esophagus with a small hiatal hernia. There is no liver mass or biliary dilatation. The gallbladder is negative. The spleen is negative. There is no adrenal mass. Pancreas is unremarkable. There is no abdominopelvic mesenteric or retroperitoneal lymphadenopathy. No destructive or suspicious osseous lesion. There has been no adverse change. IMPRESSION: No findings to suggest neoplastic recurrence or metastatic disease. Chronic atrophic nonfunctioning obstructed left kidney. Stented right kidney with stable hydronephrosis, mild. No adverse development. Stable pelvic postsurgical and post-therapeutic changes. Dictated by: Dictated on workstation # [id number]
== END ==
LOC: RAD 12:27
PROVIDERS: ATTEND Internal Medicine Hematology & Oncology
DX: C20 Malignant neoplasm of rectum (principal); N26.1 Atrophy of kidney (terminal); N13.30 Unspecified hydronephrosis; Z98.890 Other specified postprocedural states; Z96.0 Presence of urogenital implants
CPT/HCPCS: 74178

== ENCOUNTER 2017-01-01 10:29 | Outpatient (RCR) | payer MEDICAID, MEDICARE ==
[2016-12-23 13:31] LABS: BASOPHILS % (AUTO) 0 % (0-10); EOSINOPHILS # (AUTO) 0.2 10^3/uL (0.0-0.3); EOSINOPHILS % (AUTO) 2 % (0-10); LYMPHOCYTES # (AUTO) 0.8 X 10^3 (1.0-4.0); LYMPHOCYTES % (AUTO) 9 % (12-44); MEAN CORPUSCULAR HEMOGLOBIN 31 PG (25-34); MEAN CORPUSCULAR HGB CONC 33 G/DL (32-36); MEAN CORPUSCULAR VOLUME 93 FL (80-99); MEAN PLATELET VOLUME 10.8 FL (7.4-10.4); MONOCYTES # (AUTO) 0.7 X 10^3 (0.0-1.0); MONOCYTES % (AUTO) 8 % (0-12); NEUTROPHILS # (AUTO) 6.4 X 10^3 (1.8-7.8); NEUTROPHILS % (AUTO) 80 % (42-75); PLATELET COUNT 181 10^3/uL (130-400); RED CELL DISTRIBUTION WIDTH 14.6 % (10.0-14.5)
[2016-12-23 14:07] LABS: ALANINE AMINOTRANSFERASE 25 U/L (0-55); ANION GAP 10 MMOL/L (5-14); ASPARTATE AMINO TRANSFERASE 26 U/L (5-34); BILIRUBIN,TOTAL 0.3 MG/DL (0.1-1.0); BLOOD UREA NITROGEN 14 MG/DL (7-18); BUN/CREATININE RATIO 12; CALCIUM 9.9 MG/DL (8.5-10.1); CARBON DIOXIDE 20 MMOL/L (21-32); CHLORIDE 109 MMOL/L (98-107); CREATININE SERUM 1.14 MG/DL (0.60-1.30); GFR ESTIMATED > 60; GLUCOSE 94 MG/DL (70-105); POTASSIUM 4.2 MMOL/L (3.6-5.0); SODIUM 139 MMOL/L (135-145); TOTAL PROTEIN 7.3 GM/DL (6.4-8.2)
[~2017-01-01 10:29] MED LIST changes: -CATHETER FLUSH 10 ML SYR IV PRN; -IOHEXOL 350 MG/ML 100 ML (OMNIPAQUE 350) VIAL IV ONE; -NS 100 ML (IVPB) BAG IV ONE
== END 2017-01-15 13:47 | disposition home or self-care (01) ==
LOC: ONC 10:29
PROVIDERS: ATTEND Internal Medicine Hematology & Oncology
DX: C20 Malignant neoplasm of rectum (principal); I10 Essential (primary) hypertension; N13.5 Crossing vessel and stricture of ureter without hydronephrosis; N31.9 Neuromuscular dysfunction of bladder, unspecified; E78.5 Hyperlipidemia, unspecified; F70 Mild intellectual disabilities; Z79.899 Other long term (current) drug therapy
CPT/HCPCS: 36415; 80053; 82378; 85025; 99213

== ENCOUNTER → 2017-07-01 | Outpatient (CLI) | payer MEDICARE ==
[~2017-07-01] MED LIST changes: +CATHETER FLUSH 10 ML SYR IV PRN; +IOHEXOL 350 MG/ML 100 ML (OMNIPAQUE 350) VIAL IV ONE; +NS 250 ML (IVPB) BAG IV ONE
--- NOTE | 2017-07-01 15:20 | Diagnostic Imaging Report ---
PROCEDURE: CT abdomen and pelvis with and without contrast. TECHNIQUE: Precontrast acquisitions were acquired through the abdomen and pelvis. Multiple contiguous axial images were obtained through the abdomen and pelvis after the administration of intravenous contrast. INDICATION: Indwelling ureteral stent. History of rectal cancer. COMPARISON: 12/25/2016 FINDINGS: Included portions of the lung bases show hiatal hernia. There is air-fluid level within the distal portions of the esophagus. There has been interval development of 9 mm juxtapleural nodular density within the posterior margins of left lower lobe (image 14, series 3). CT ABDOMEN: Right-sided double-J ureteral stent is again identified. The stent is located slightly more inferiorly when compared to prior exam. The superior double-J portion now resides within the superior right ureter, as opposed to within the right renal pelvis. Patency of the stent is not well evaluated on this exam, but there has been interval development of increased dilatation of the right renal pelvis and renal calyces. Right renal pelvis now measures approximately 2.4 cm in AP dimension, compared to 1.1 cm previously. Contrast urine level is noted on the delayed exam. No distinct intraluminal filling defects are seen. Note is also made of lack of contrast within the urinary bladder on the delayed sequence. There is persistent severe dilatation of the left renal pelvis and calyces. There is persistent severe parenchymal thinning of the left kidney as well. There is minimal excretion of concentrated contrast from the left kidney on the delayed sequence. No renal mass type lesions are seen on either side. Left adrenal adenoma is noted. Otherwise, adrenal glands, spleen, pancreas, and liver have a normal appearance. Small bowel loops are nondistended. Normal appendix is identified. There are a few scattered colonic diverticuli, but no CT evidence of acute diverticulitis. There is no loculated fluid collection, free fluid, nor free air within the abdomen. There is subtle stranding of the central mesenteric fat. A few prominent, yet subcentimeter mesenteric lymph nodes are also noted. This appearance is stable compared to prior exam. Otherwise, no abnormal mesenteric or retroperitoneal adenopathy is seen. Bony structures show no acute abnormalities. CT PELVIS: There is thickened appearance of the urinary bladder wall. Again, there is no concentrated contrast seen within the urinary bladder on the delayed sequence. There is no loculated fluid collection, free fluid, nor free air within the pelvis. No abnormal lymph nodes are identified. Bony structures show no acute abnormalities. IMPRESSION: 1. Indwelling right-sided double-J ureteral stent is now located more inferiorly with the superior pigtail portion in the superior margins of the right ureter. There is also evidence of at least partial obstruction of the double-J ureteral stent, as there is increased dilatation of the right renal pelvis and calyces. Additionally, no contrast is seen within the urinary bladder on the delayed sequence. 2. Thickened appearance of the urinary bladder wall. Although this can be seen as artifact related to incomplete distention, it may also be seen with other underlying infectious or inflammatory conditions. Correlation with history of external beam radiation to this area is recommended. Cystitis should also be considered. 3. Chronic appearing severe dilatation of the left renal pelvis and calyces with advanced atrophic changes to the left kidney. 4. Interval development of 9 mm nodular density within the posterior left lower lobe. Followup with postcontrast CT chest is recommended. 5. Hiatal hernia with debris in the distal esophagus. Correlation with reflux is recommended. Dictated by: Dictated on workstation # [id number]
== END ==
LOC: RAD 12:56
PROVIDERS: ATTEND Internal Medicine Hematology & Oncology
DX: N26.1 Atrophy of kidney (terminal) (principal); R91.1 Solitary pulmonary nodule; K44.9 Diaphragmatic hernia without obstruction or gangrene; Z96.0 Presence of urogenital implants; Z85.048 Personal history of other malignant neoplasm of rectum, rectosigmoid junction, and anus
CPT/HCPCS: 74178

== ENCOUNTER 2017-07-08 12:46 | Outpatient (RCR) | payer MEDICARE ==
[2017-06-29 15:16] LABS: BASOPHILS % (AUTO) 0 % (0-10); EOSINOPHILS % (AUTO) 1 % (0-10); HEMATOCRIT 43 % (40-54); HEMOGLOBIN 14.9 G/DL (13.3-17.7); LYMPHOCYTES # (AUTO) 1.1 X 10^3 (1.0-4.0); LYMPHOCYTES % (AUTO) 17 % (12-44); MEAN CORPUSCULAR HEMOGLOBIN 31 PG (25-34); MEAN CORPUSCULAR HGB CONC 35 G/DL (32-36); MEAN CORPUSCULAR VOLUME 89 FL (80-99); MEAN PLATELET VOLUME 10.9 FL (7.4-10.4); MONOCYTES # (AUTO) 0.7 X 10^3 (0.0-1.0); MONOCYTES % (AUTO) 10 % (0-12); NEUTROPHILS # (AUTO) 4.7 X 10^3 (1.8-7.8); NEUTROPHILS % (AUTO) 72 % (42-75); PLATELET COUNT 120 10^3/uL (130-400); RED BLOOD COUNT 4.77 10^6/uL (4.35-5.85); RED CELL DISTRIBUTION WIDTH 13.1 % (10.0-14.5); WHITE BLOOD COUNT 6.5 10^3/uL (4.3-11.0)
[2017-06-29 15:37] LABS: ALBUMIN 4.2 GM/DL (3.2-4.5); BILIRUBIN,TOTAL 0.3 MG/DL (0.1-1.0); CALCIUM 9.1 MG/DL (8.5-10.1); CREATININE SERUM 1.27 MG/DL (0.60-1.30); POTASSIUM 4.2 MMOL/L (3.6-5.0); TOTAL PROTEIN 7.7 GM/DL (6.4-8.2)
[~2017-07-08 12:46] MED LIST changes: -CATHETER FLUSH 10 ML SYR IV PRN; -IOHEXOL 350 MG/ML 100 ML (OMNIPAQUE 350) VIAL IV ONE; -NS 250 ML (IVPB) BAG IV ONE
== END 2017-09-27 | disposition home or self-care (01) ==
LOC: ONC 12:46
PROVIDERS: ATTEND Internal Medicine Hematology & Oncology
DX: C20 Malignant neoplasm of rectum (principal); N26.1 Atrophy of kidney (terminal); N13.30 Unspecified hydronephrosis; Z98.890 Other specified postprocedural states; Z96.0 Presence of urogenital implants; I10 Essential (primary) hypertension; N13.5 Crossing vessel and stricture of ureter without hydronephrosis; N31.9 Neuromuscular dysfunction of bladder, unspecified; E78.5 Hyperlipidemia, unspecified; F70 Mild intellectual disabilities; Z79.899 Other long term (current) drug therapy
CPT/HCPCS: 36415; 80053; 82378; 85025; 99213

== ENCOUNTER 2018-01-13 12:53 | Outpatient (RCR) | payer MEDICARE ==
[2018-01-13 13:21] LABS: BASOPHILS % (AUTO) 0 % (0-10); EOSINOPHILS # (AUTO) 0.1 10^3/uL (0.0-0.3); EOSINOPHILS % (AUTO) 1 % (0-10); HEMATOCRIT 43 % (40-54); HEMOGLOBIN 15.2 G/DL (13.3-17.7); LYMPHOCYTES # (AUTO) 1.2 X 10^3 (1.0-4.0); LYMPHOCYTES % (AUTO) 15 % (12-44); MEAN CORPUSCULAR HEMOGLOBIN 32 PG (25-34); MEAN CORPUSCULAR HGB CONC 35 G/DL (32-36); MEAN CORPUSCULAR VOLUME 90 FL (80-99); MEAN PLATELET VOLUME 11.2 FL (7.4-10.4); MONOCYTES # (AUTO) 0.8 X 10^3 (0.0-1.0); MONOCYTES % (AUTO) 10 % (0-12); NEUTROPHILS % (AUTO) 74 % (42-75); PLATELET COUNT 160 10^3/uL (130-400); RED CELL DISTRIBUTION WIDTH 13.8 % (10.0-14.5); WHITE BLOOD COUNT 8.1 10^3/uL (4.3-11.0)
[2018-01-13 13:39] LABS: ALBUMIN 4.4 GM/DL (3.2-4.5); BILIRUBIN,TOTAL 0.5 MG/DL (0.1-1.0); CALCIUM 9.3 MG/DL (8.5-10.1); CREATININE SERUM 1.37 MG/DL (0.60-1.30); POTASSIUM 3.9 MMOL/L (3.6-5.0); TOTAL PROTEIN 7.3 GM/DL (6.4-8.2)
[2018-01-31] MEDS ORDERED: HYDR25TA4 PO (14:18)
[2018-01-31] MEDS ORDERED: PHEN100C11 PO (14:18)
[2018-01-31] MEDS ORDERED: ATEN25TA PO (14:18)
[2018-01-31] MEDS ORDERED: ALPR0.5T7 PO (14:19)
[2018-01-31] MEDS ORDERED: ATOR40TA70 PO (14:24)
== END 2018-01-30 | disposition home or self-care (01) ==
LOC: ONC 12:53
PROVIDERS: ATTEND Internal Medicine Hematology & Oncology
DX: Z08 Encounter for follow-up examination after completed treatment for malignant neoplasm (principal); Z85.048 Personal history of other malignant neoplasm of rectum, rectosigmoid junction, and anus; N26.1 Atrophy of kidney (terminal); N13.30 Unspecified hydronephrosis; I10 Essential (primary) hypertension; N13.5 Crossing vessel and stricture of ureter without hydronephrosis; N31.9 Neuromuscular dysfunction of bladder, unspecified; E78.5 Hyperlipidemia, unspecified; F70 Mild intellectual disabilities; Z79.899 Other long term (current) drug therapy; Z96.0 Presence of urogenital implants; Z92.21 Personal history of antineoplastic chemotherapy; Z92.3 Personal history of irradiation
CPT/HCPCS: 36415; 80053; 85025; 99213

== ENCOUNTER 2018-01-31 05:41 | Outpatient (CLI) | payer MEDICARE ==
[~2018-01-31] VITALS: Ht 175.3 cm; Wt 80.7 kg
[2018-01-31] MEDS ORDERED: HYDR25TA4 PO (14:18)
[2018-01-31] MEDS ORDERED: PHEN100C11 PO (14:18)
[2018-01-31] MEDS ORDERED: ATEN25TA PO (14:18)
[2018-01-31] MEDS ORDERED: ALPR0.5T7 PO (14:19)
[2018-01-31] MEDS ORDERED: ATOR40TA70 PO (14:24)
== END 2018-01-31 14:23 | disposition home or self-care (01) ==
LOC: PREOP 05:41
PROVIDERS: ATTEND Surgery
DX: Z01.818 Encounter for other preprocedural examination (principal)

== ENCOUNTER 2018-02-07 07:02 | Day surgery (SDC) | payer MEDICARE ==
[~2018-02-07] VITALS: Ht 175.3 cm; Wt 80.7 kg
--- OUTSIDE RECORDS SUMMARY | 2018-02-07 07:05 | XMS REPORT ---
Author Author CLARISSA CONTRERAS [facility] Address Unknown Care Team Providers Care Crm Developer Name Role Phone CLARISSA CONTRERAS Unavailable PROBLEMS Unknown Problems ALLERGIES No Known Allergies ENCOUNTERS Encounter Location Date Diagnosis [facility] [id number] [place] [address] [id number] Oct, [facility] [address] [place] [address] [phone] Apr, Dental examination Z01.20 [facility] [address] [place] [address] [id number] Jan, Dental examination Z01.20 [facility] [address] [id number] [place] [address] [id number] Jan, Dental examination Z01.20 [facility] [id number] [place] [address] [id number] Oct, Dental examination Z01.20 [facility] [id number] [place] [address] [id number] August, Dental examination Z01.20 [facility] [id number] [place] [address] [id number] Jan, Dental examination Z01.20 [facility] [address] [id number] [place] [address] [id number] August, Dental examination Z01.20 [facility] [address] [id number] [place] [address] [id number] Aug, Encounter for dental examination and cleaning without abnormal findings Z01.20 [facility] [address] [id number] [place] [address] [id number] Jan, Encounter for dental examination Z01.20 [facility] [address] [id number] [place] [address] [place] [phone] Oct, Dental examination V72.2 IMMUNIZATIONS No Known Immunizations SOCIAL HISTORY Never Assessed REASON FOR VISIT FILLING PLAN OF CARE Activity Details Follow Up prn Reason:As needed VITAL SIGNS Blood pressure systolic 142 mmHg 2017-02-26 Blood pressure diastolic 95 mmHg 2017-02-26 MEDICATIONS Medication Instructions Dosage Frequency Start Date End Date Duration Status Simvastatin 40 MG Orally Once a day 1 tablet in the evening 24h Active Water Pills Active Dilantin 100 MG Orally Three times a day 1 capsule 8h Active Atenolol 25 MG Orally Once a day 1 tablet 24h Active RESULTS No Results PROCEDURES Procedure Date Ordered Result Body Site AMALGAM-TWO SURFACES PRIMARY/PERM Feb 26, 2017 INSTRUCTIONS MEDICATIONS ADMINISTERED No Known Medications MEDICAL (GENERAL) HISTORY Type Description Date Medical History High Blood Pressure Medical History History of High Chlorestorol Medical History Cancer of the colon Medical History Chemo/radiation Medical History Fainting/Seizures/Epilepsy Surgical History Colon Surgery 06/2013 Hospitalization History Hospitalization for surgery only
--- OUTSIDE RECORDS SUMMARY | 2018-02-07 07:05 | XMS REPORT ---
Author Author FRANCINE HO [facility] Address [address] [place] [address] Phone Unavailable Care Team Providers Care Field Account Manager Name Role Phone FRANCINE HO Unavailable Unavailable PROBLEMS Unknown Problems ALLERGIES No Known Allergies ENCOUNTERS Encounter Location Date Diagnosis [facility] [id number] [place] [id number] Apr, [facility] [address] [place] [address] [id number] Oct, Dental examination Z01.20 [facility] [address] [id number] Apr, Dental examination Z01.20 [facility] [address] [place] [address] [phone] Jan, Dental examination Z01.20 [facility] [address] [place] [address] [id number] Jan, Dental examination Z01.20 [facility] [id number] [place] [address] [id number] Oct, Dental examination Z01.20 [facility] [id number] [place] [address] [phone] August, Dental examination Z01.20 [facility] [id number] [place] [address] [id number] Jan, Dental examination Z01.20 [facility] [id number] [place] [address] [id number] August, Dental examination Z01.20 [facility] [address] [id number] [place] [address] [id number] Aug, Encounter for dental examination and cleaning without abnormal findings Z01.20 [facility] [address] [id number] [place] [address] [id number] Jan, [facility] for [facility] examination Z01.[facility] [address] [id number] [place] [phone] Oct, Dental examination V72.2 IMMUNIZATIONS No Known Immunizations SOCIAL HISTORY Never Assessed REASON FOR VISIT 6 MO RECALL PLAN OF CARE Activity Details Follow Up 6 Months Reason:recall VITAL SIGNS Blood pressure systolic 124 mmHg 2017-04-02 Blood pressure diastolic 75 mmHg 2017-04-02 MEDICATIONS Medication Instructions Dosage Frequency Start Date End Date Duration Status Water Pills Active Simvastatin 40 MG Orally Once a day 1 tablet in the evening 24h Active Dilantin 100 MG Orally Three times a day 1 capsule 8h Active Atenolol 25 MG Orally Once a day 1 tablet 24h Active RESULTS No Results PROCEDURES Procedure Date Ordered Result Body Site INTRAORL-PERIAPICAL 1 FILM 61682 Apr 02, 2017 INTRAORL-PERIAPICAL EA ADD FILM Apr 02, 2017 PROPHYLAXIS - ADULT Apr 02, 2017 INTRAORL-PERIAPICAL EA ADD FILM Apr 02, 2017 TOPICAL FLUORIDE VARNISH Apr 02, 2017 INSTRUCTIONS MEDICATIONS ADMINISTERED No Known Medications MEDICAL (GENERAL) HISTORY Type Description Date Medical History High Blood Pressure Medical History History of High Chlorestorol Medical History Cancer of the colon Medical History Chemo/radiation Medical History Fainting/Seizures/Epilepsy Surgical History Colon Surgery 06/2013 Hospitalization History Hospitalization for surgery only
--- OUTSIDE RECORDS SUMMARY | 2018-02-07 07:05 | XMS REPORT ---
Author Author FRANCINE HO [facility] Address [address] [place] [address] Phone Unavailable Care Team Providers Care Telemarketer Name Role Phone FRANCINE HO Unavailable Unavailable PROBLEMS Unknown Problems ALLERGIES No Known Allergies ENCOUNTERS Encounter Location Date Diagnosis [facility] [id number] [place] [address] [phone] Apr, [facility] [address] [place] [address] [phone] Oct, Dental examination Z01.20 [facility] [address] [id number] Apr, Dental examination Z01.20 [facility] [address] [id number] [place] [address] [id number] Jan, Dental examination Z01.20 [facility] [address] [place] [address] [phone] Jan, Dental examination Z01.20 [facility] [address] [id number] [place] [address] [phone] Oct, Dental examination Z01.20 [facility] [address] [id number] [place] [address] [id number] August, Dental examination Z01.20 [facility] [address] [id number] [place] [address] [id number] Jan, Dental examination Z01.20 [facility] [id number] [place] [address] [id number] August, Dental examination Z01.20 [facility] [id number] [place] [address] [id number] Aug, Encounter for dental examination and cleaning without abnormal findings Z01.20 [facility] [id number] [place] [address] [phone] Jan, Encounter for dental examination Z01.20 [facility] [address] [id number] [place] [phone] Oct, Dental examination V72.2 IMMUNIZATIONS No Known Immunizations SOCIAL HISTORY Never Assessed REASON FOR VISIT 6 MO RECALL PLAN OF CARE Activity Details Follow Up 6 Months Reason:recall VITAL SIGNS Blood pressure systolic 146 mmHg 2017-10-05 Blood pressure diastolic 88 mmHg 2017-10-05 MEDICATIONS Medication Instructions Dosage Frequency Start Date End Date Duration Status Simvastatin 40 MG Orally Once a day 1 tablet in the evening 24h Active Water Pills Active Dilantin 100 MG Orally Three times a day 1 capsule 8h Active Atenolol 25 MG Orally Once a day 1 tablet 24h Active RESULTS No Results PROCEDURES Procedure Date Ordered Result Body Site PERIODIC ORAL EXAMINATION October 05, 2017 INTRAORL-PERIAPICAL 1 FILM 16798 October 05, 2017 TOPICAL FLUORIDE VARNISH October 05, 2017 Periodontal maint procedures October 05, 2017 INTRAORL-PERIAPICAL EA ADD FILM October 05, 2017 INTRAORL-PERIAPICAL EA ADD FILM October 05, 2017 BITEWINGS - FOUR FILMS October 05, 2017 INTRAORL-PERIAPICAL EA ADD FILM October 05, 2017 INSTRUCTIONS MEDICATIONS ADMINISTERED No Known Medications MEDICAL (GENERAL) HISTORY Type Description Date Medical History High Blood Pressure Medical History History of High Chlorestorol Medical History Cancer of the colon Medical History Chemo/radiation Medical History Fainting/Seizures/Epilepsy Surgical History Colon Surgery 06/2013 Hospitalization History Hospitalization for surgery only
--- OUTSIDE RECORDS SUMMARY | 2018-02-07 07:05 | XMS REPORT ---
Author Author FRANCINE HO [facility] Address [address] [place] [address] Phone Unavailable Care Team Providers Care Fire Operations Forester Name Role Phone FRANCINE HO Unavailable Unavailable PROBLEMS Type Condition ICD9-CM Code DTO20-IV Code Onset Dates Condition Status SNOMED Code Problem Encounter for dental examination and cleaning without abnormal findings Z01.20 Active 656850542 Problem Encounter for dental examination Z01.20 Active [id number] ALLERGIES No Known Allergies SOCIAL HISTORY Never Assessed PLAN OF CARE Activity Details Follow Up yamileth Reason:dolly VITAL SIGNS Blood pressure systolic 132 mmHg 2016-08-31 Blood pressure diastolic 94 mmHg 2016-08-31 MEDICATIONS Medication Instructions Dosage Frequency Start Date End Date Duration Status Atenolol 25 MG Orally Once a day 1 tablet 24h Active Simvastatin 40 MG Orally Once a day 1 tablet in the evening 24h Active Dilantin 100 MG Orally Three times a day 1 capsule 8h Active RESULTS No Results PROCEDURES Procedure Date Ordered Result Body Site PROPHYLAXIS - ADULT August 31, 2016 TOPICAL FLUORIDE VARNISH August 31, 2016 IMMUNIZATIONS No Known Immunizations MEDICAL (GENERAL) HISTORY Type Description Date Medical History High Blood Pressure Medical History History of High Chlorestorol Medical History Cancer of the colon Medical History Chemo/radiation Medical History Fainting/Seizures/Epilepsy Surgical History Colon Surgery 06/2013 Hospitalization History Hospitalization for surgery only
--- OUTSIDE RECORDS SUMMARY | 2018-02-07 07:06 | XMS REPORT ---
Author Author CLARISSA CONTRERAS [facility] Address Unknown Care Team Providers Care Ski Patroller Name Role Phone CLARISSA CONTRERAS Unavailable PROBLEMS Unknown Problems ALLERGIES No Known Allergies ENCOUNTERS Encounter Location Date Diagnosis [facility] [id number] [place] [address] [phone] Oct, [facility] [address] [place] [address] [phone] Apr, Dental examination Z01.20 [facility] [address] [place] [address] [phone] Jan, Dental examination Z01.20 [facility] [id number] [place] [address] [phone] Jan, Dental examination Z01.20 [facility] [address] [id number] [place] [address] [id number] Oct, Dental examination Z01.20 [facility] [id number] [place] [address] [id number] August, Dental examination Z01.20 [facility] [id number] [place] [address] [phone] Jan, Dental examination Z01.20 [facility] [address] [id number] [place] [address] [id number] August, Dental examination Z01.20 [facility] [id number] [place] [address] [phone] Aug, Encounter for dental examination and cleaning without abnormal findings Z01.20 [facility] [id number] [place] [address] [phone] Jan, Encounter for dental examination Z01.20 [facility] [address] [id number] [place] [address] [place] [phone] Oct, Dental examination V72.2 IMMUNIZATIONS No Known Immunizations SOCIAL HISTORY Never Assessed REASON FOR VISIT filling PLAN OF CARE Activity Details Follow Up prn Reason:fillings VITAL SIGNS MEDICATIONS Medication Instructions Dosage Frequency Start Date End Date Duration Status Atenolol 25 MG Orally Once a day 1 tablet 24h Active Simvastatin 40 MG Orally Once a day 1 tablet in the evening 24h Active Dilantin 100 MG Orally Three times a day 1 capsule 8h Active RESULTS No Results PROCEDURES Procedure Date Ordered Result Body Site RESIN COMPOS - 1 SURFACE POSTERIOR Feb 04, 2017 INSTRUCTIONS MEDICATIONS ADMINISTERED No Known Medications MEDICAL (GENERAL) HISTORY Type Description Date Medical History High Blood Pressure Medical History History of High Chlorestorol Medical History Cancer of the colon Medical History Chemo/radiation Medical History Fainting/Seizures/Epilepsy Surgical History Colon Surgery 06/2013 Hospitalization History Hospitalization for surgery only
--- OUTSIDE RECORDS SUMMARY | 2018-02-07 07:10 | XMS REPORT | Continuity of Care Document ---
Author Author [facility] Organization [facility] Address Unknown Phone Unavailable Allergies Active Description Code Type Severity Reaction Onset Reported/Identified Relationship to Patient Clinical Status Yes NO KNOWN DRUG ALLERGIES UNKNOWN NO KNOWN DRUG ALLERG Yes No Known Drug Allergies [id number] Drug Allergy Unknown N/A 07/07/2013 Medications There is no data. 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 10/19/2013 CELINE PELAEZ MD Ot V65.49 OTHER SPECIFIED COUNSELING 10/20/2013 CELINE PELAEZ MD Ot 154.1 MALIGNANT NEOPL RECTUM 11/01/2013 PIYUSH MAGDALENO MD Ot 154.1 MALIGNANT NEOPL RECTUM 11/01/2013 PIYUSH MAGDALENO MD Ot 272.4 HYPERLIPIDEMIA NEC/NOS 11/01/2013 PIYUSH MAGDALENO MD Ot 317 MILD INTELLECTUAL DISABILITIES 11/01/2013 PIYUSH MAGDALENO MD Ot 401.9 HYPERTENSION NOS 11/01/2013 PIYUSH MAGDALENO MD Ot 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 11/01/2013 PIYUSH MAGDALENO MD Ot 596.54 NEUROGENIC BLADDER, NOT OTHERWISE SPECIF 11/01/2013 PIYUSH MAGDALENO MD Ot 788.20 RETENTION OF URINE NOS 11/01/2013 PIYUSH MAGDALENO MD Ot V58.0 ENCOUNTER FOR RADIOTHERAPY 11/09/2013 CELINE PELAEZ MD Ot 154.1 MALIGNANT NEOPL RECTUM 11/09/2013 CELINE PELAEZ MD Ot 272.0 PURE HYPERCHOLESTEROLEM 11/09/2013 CELINE PELAEZ MD Ot 275.2 DIS MAGNESIUM METABOLISM 11/09/2013 CELINE PELAEZ MD Ot 317 MILD INTELLECTUAL DISABILITIES 11/09/2013 CELINE PELAEZ MD Ot 345.90 EPILEPSY UNSPEC W/O MENTION INTRACTABLE 11/09/2013 CELINE PELAEZ MD Ot 401.9 HYPERTENSION NOS 11/09/2013 CELINE PELAEZ MD Ot 560.1 PARALYTIC ILEUS 11/09/2013 CELINE PELAEZ MD Ot 593.5 HYDROURETER 11/09/2013 CELINE PELAEZ MD Ot 596.54 NEUROGENIC BLADDER, NOT OTHERWISE SPECIF 11/09/2013 CELINE PELAEZ MD Ot 997.49 OTHER DIGESTIVE SYSTEM COMPLICATIONS 11/09/2013 CELINE PELAEZ MD Ot 998.2 ACCIDENTAL OP LACERATION 11/09/2013 CELINE PELAEZ MD Ot V15.3 HX OF IRRADIATION 11/09/2013 CELINE PELAEZ MD Ot V16.0 FAMILY HX-GI MALIGNANCY 11/09/2013 CELINE PELAEZ MD Ot V87.41 PERSONAL HISTORY OF ANTINEOPLASTIC CHEMO 02/10/2014 CELINE PELAEZ MD Ot 596.54 NEUROGENIC BLADDER, NOT OTHERWISE SPECIF 02/10/2014 CELINE PELAEZ MD Ot V03.82 PROPHYLACTIC VACC AGAINST STREPTOCOCCUS 02/10/2014 CELINE PELAEZ MD Ot V04.81 ND FOR PROPHYLACTIC VACCIN AND INOCULATI 02/10/2014 CELINE PELAEZ MD Ot V10.06 HX-RECTAL ANAL MALIGN 02/10/2014 CELINE PELAEZ MD Ot V16.0 FAMILY HX-GI MALIGNANCY 02/10/2014 CELINE PELAEZ MD Ot V55.2 ATTEN TO ILEOSTOMY 03/21/2014 PIYUSH MAGDALENO MD Ot 154.1 MALIGNANT NEOPL RECTUM 03/21/2014 PIYUSH MAGDALENO MD Ot 272.4 HYPERLIPIDEMIA NEC/NOS 03/21/2014 PIYUSH MAGDALENO MD Ot 317 MILD INTELLECTUAL DISABILITIES 03/21/2014 PIYUSH MAGDALENO MD Ot 401.9 HYPERTENSION NOS 03/21/2014 PIYUSH MAGDALENO MD Ot 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 03/21/2014 PIYUSH MAGDALENO MD Ot 596.54 NEUROGENIC BLADDER, NOT OTHERWISE SPECIF 03/21/2014 RASTA REHMAN, PIYUSH Villalta Ot 788.20 RETENTION OF URINE NOS 03/21/2014 RASTA REHMAN, PIYUSH Villalta Ot V58.11 ENCOUNTER FOR ANTINEOPLASTIC CHEMOTHERAP 03/27/2014 RASTA REHMAN, PIYUSH Villalta Ot 154.1 03/27/2014 RASTA REHMAN, PIYUSH Villalta Ot 272.4 03/27/2014 RASTA REHMAN, PIYUSH Ambar Ot 317 03/27/2014 RASTA REHMAN, PIYUSH Villalta Ot 401.9 03/27/2014 RASTA REHMAN, PIYUSH Villalta Ot 593.3 03/27/2014 RASTA REHMAN, PIYUSH Villalta Ot 596.54 03/27/2014 RASTA REHMAN, PIYUSH Villalta Ot 788.20 03/27/2014 PIYUSH MAGDALENO MD Ot 154.1 03/27/2014 PIYUSH MAGDALENO MD Ot 272.4 03/27/2014 RASTA REHMAN, PIYUSH Villalta Ot 317 03/27/2014 RASTA REHMAN, PIYUSH Villalta Ot 401.9 03/27/2014 PIYUSH MAGDALENO MD Ot 593.3 03/27/2014 PIYUSH MAGDALENO MD Ot 596.54 03/27/2014 PIYUSH MAGDALENO MD Ot 788.20 04/04/2014 PIYUSH MAGDALENO MD Ot 154.1 04/04/2014 RASTA REHMAN, PIYUSH Villalta Ot 272.4 04/04/2014 RASTA REHMAN, PIYUSH Villalta Ot 317 04/04/2014 RASTA REHMAN, PIYUSH Villalta Ot 401.9 04/04/2014 RASTA REHMAN, PIYUSH Villalta Ot 593.3 04/04/2014 RASTA REHMAN, PIYUSH Villalta Ot 596.54 04/04/2014 PIYUSH MAGDALENO MD Ot 788.20 04/05/2014 PIYUSH MAGDALENO MD Ot 154.1 04/05/2014 RASTA REHMAN, PIYUSH Villalta Ot 272.4 04/05/2014 PIYUSH MAGDALENO MD Ot 317 04/05/2014 RASTA REHMAN, PIYUSH Villalta Ot 401.9 04/05/2014 PIYUSH MAGDALENO MD Ot 593.3 04/05/2014 PIYUSH MAGDALENO MD Ot 596.54 04/05/2014 RASTA REHMAN, PIYUSH Villalta Ot 788.20 04/06/2014 JOEL BUCK PIN STICKER Ot 154.1 04/06/2014 JOEL BUCK PIN STICKER Ot 272.4 04/06/2014 JOEL BUCK PIN STICKER Ot 317 04/06/2014 JOEL BUCK PIN STICKER Ot 401.9 04/17/2014 JACK REHMAN, Mira KAPAD[place] Ot 591 04/17/2014 JACK REHMAN, Mira [place] Ot 788.20 04/23/2014 RASTA REHMAN, PIYUSH Villalta Ot 154.1 04/23/2014 RASTA REHMAN, PIYUSH Villalta Ot 272.4 04/23/2014 RASTA REHMAN, PIYUSH Villalta Ot 317 04/23/2014 RASTA REHMAN, PIYUSH Villalta Ot 401.9 04/23/2014 RASTA REHMAN, PIYUSH Villalta Ot 593.3 04/23/2014 RASTA REHMAN, PIYUSH Villalta Ot 596.54 04/23/2014 RASTA REHMAN, PIYUSH Villalta Ot 788.20 04/23/2014 RASTA REHMAN, PIYUSH Villalta Ot V58.11 04/23/2014 JACK REHMAN, Mira [place] Ot 591 04/23/2014 JACK REHMAN, Mira [place] Ot 788.20 04/27/2014 CELI REHMAN, ELSA A Ot 591 04/27/2014 CELI REHMAN, ELSA A Ot 599.60 04/27/2014 CELI REHMAN, ELSA A Ot 793.5 04/27/2014 JOEL BUCK PIN STICKER Ot 154.1 04/27/2014 JOEL BUCK PIN STICKER Ot 319 04/27/2014 JOEL BUCK PIN STICKER Ot 593.3 04/27/2014 JOEL BUCK PIN STICKER Ot 596.54 04/27/2014 JOEL BUCK PIN STICKER Ot 788.20 04/27/2014 JOEL BUCK PIN STICKER Ot V58.69 04/27/2014 LATANYA REHMAN, CELINE Chilel Ot 153.9 04/27/2014 LATANYA REHMAN, CELINE Chilel Ot V72.84 04/27/2014 LATANYA REHMAN, CELINE Chilel Ot 153.9 04/27/2014 LATANYA REHMAN, CELINE M Ot V72.63 04/27/2014 LATANYA REHMAN, CELINE M Ot V74.8 04/27/2014 LATANYA REHMAN, CELINE M Ot 154.1 04/27/2014 LATANYA REHMAN, CELINE M Ot V72.84 04/27/2014 JACK ERHMAN, Mira [place] Ot 591 04/27/2014 JACK REHMAN, Mira [place] Ot 788.20 04/27/2014 JOEL BUCK PIN STICKER Ot 154.1 04/27/2014 JOEL BUCK PIN STICKER Ot 272.4 04/27/2014 BUCKJOEL Rider PIN STICKER Ot 317 04/27/2014 BUCKJOEL Rider PIN STICKER Ot 401.9 04/27/2014 RASTA REHMAN, PIYUSH Ambar Ot 154.1 04/27/2014 RASTA REHMAN, PIYUSH Ambar Ot 272.4 04/27/2014 RASTA REHMAN, PIYUSH Ambar Ot 317 04/27/2014 RASTA REHMAN, PIYUSH K Ot 401.9 04/27/2014 RASTA REHMAN, PIYUSH K Ot 593.3 04/27/2014 RASTA REHMAN, PIYUSH K Ot 596.54 04/27/2014 RASTA REHMAN, PIYUSH K Ot 788.20 04/27/2014 RASTA REHMAN, PIYUSH Ambar Ot V58.11 04/27/2014 RASTA REHMAN, PIYUSH Villalta Ot 038.9 04/27/2014 RASTA REHMAN, PIYUSH Ambar Ot 154.1 04/27/2014 RASTA REHMAN, PIYUSH Ambar Ot 272.0 04/27/2014 RASTA REHMAN, PIYUSH Ambar Ot 345.90 04/27/2014 RASTA REHMAN, PIYUSH Ambar Ot 401.9 04/27/2014 RASTA REHMAN, PIYUSH K Ot 780.65 04/27/2014 RASTA REHMAN, PIYUSH K Ot 995.91 04/27/2014 RASTA REHMAN, PIYUSH K Ot V10.51 04/27/2014 RASTA REHMAN, PIYUSH K Ot V45.79 04/27/2014 RASTA REHMAN, PIYUSH Ambar Ot V58.69 04/28/2014 RASTA REHMAN, PIYUSH Ambar Ot 038.9 04/28/2014 RASTA REHMAN, PIYUSH Ambar Ot 154.1 04/28/2014 RASTA REHMAN, PIYUSH Ambar Ot 272.0 04/28/2014 RASTA REHMAN, PIYUSH K Ot 345.90 04/28/2014 RASTA REHMAN, PIYUSH K Ot 401.9 04/28/2014 RASTA REHMAN, PIYUSH K Ot 780.65 04/28/2014 RASTA REHMAN, PIYUSH K Ot 995.91 04/28/2014 RASTA REHMAN, PIYUSH K Ot V10.51 04/28/2014 RASTA REHMAN, PIYUSH K Ot V45.79 04/28/2014 RASTA REHMAN, PIYUSH K Ot V58.69 04/28/2014 RASTA REHMAN, PIYUSH K Ot 038.9 04/28/2014 RASTA REHMAN, PIYUSH Ambar Ot 154.1 04/28/2014 RASTA REHMAN, PIYUSH K Ot 272.0 04/28/2014 RASTA REHMAN, PIYUSH Villalta Ot 345.90 04/28/2014 RASTA REHMAN, PIYUSH Villalta Ot 401.9 04/28/2014 RASTA REHMAN, PIYUSH Villalta Ot 780.65 04/28/2014 RASTA REHMAN, PIYUSH Villalta Ot 995.91 04/28/2014 RASTA REHMAN, PIYUSH Villalta Ot V10.51 04/28/2014 RASTA REHMAN, PIYUSH Villalta Ot V45.79 04/28/2014 RASTA REHMAN, PIYUSH Villalta Ot V58.69 04/29/2014 RASTA REHMAN, PIYUSH Villalta Ot 038.9 04/29/2014 RASTA REHMAN, PIYUSH Villalta Ot 154.1 04/29/2014 RASTA REHMAN, PIYUSH Villalta Ot 272.0 04/29/2014 RASTA REHMAN, PIYUSH Villalta Ot 345.90 04/29/2014 RASTA REHMAN, PIYUSH Villalta Ot 401.9 04/29/2014 RASTA REHMAN, PIYUSH Villalta Ot 780.65 04/29/2014 RASTA REHMAN, PIYUSH Villalta Ot 995.91 04/29/2014 RASTA REHMAN, PIYUSH Villalta Ot V10.51 04/29/2014 RASTA REHMAN, PIYUSH Villalta Ot V45.79 04/29/2014 RASTA REHMAN, PIYUSH Villalta Ot V58.69 04/29/2014 RASTA REHMAN, PIYUSH Villalta Ot 038.9 04/29/2014 RASTA REHMAN, PIYUSH Villalta Ot 154.1 04/29/2014 RASTA REHMAN, PIYUSH Villalta Ot 272.0 04/29/2014 RASTA REHMAN, PIYUSH Villalta Ot 345.90 04/29/2014 RASTA REHMAN, PIYUSH Villalta Ot 401.9 04/29/2014 RASTA REHMAN, PIYUSH Villalta Ot 780.65 04/29/2014 RASTA REHMAN, PIYUSH Villalta Ot 995.91 04/29/2014 RASTA REHMAN, PIYUSH Villalta Ot V10.51 04/29/2014 RASTA REHMAN, PIYUSH Villalta Ot V45.79 04/29/2014 PIYUSH MAGDALENO MD Ot V58.69 05/07/2014 RASTA REHMAN, PIYUSH Villalta Ot 038.9 SEPTICEMIA NOS 05/07/2014 PIYUSH MAGDALENO MD Ot 154.1 MALIGNANT NEOPL RECTUM 05/07/2014 PIYUSH MAGDALENO MD Ot 272.0 PURE HYPERCHOLESTEROLEM 05/07/2014 PIYUSH MAGDALENO MD Ot 275.2 DIS MAGNESIUM METABOLISM 05/07/2014 PIYUSH MAGDALENO MD Ot 275.42 HYPERCALCEMIA 05/07/2014 PIYUSH MAGDALENO MD Ot 276.51 DEHYDRATION 05/07/2014 PIYUSH MAGDALENO MD Ot 276.8 HYPOPOTASSEMIA 05/07/2014 PIYUSH MAGDALENO MD Ot 284.11 ANTINEOPLASTIC CHEMOTHERAPY INDUCED PANC 05/07/2014 PIYUSH MAGDALENO MD Ot 285.3 ANTINEOPLASTIC CHEMOTHERAPY INDUCED ANEM 05/07/2014 PIYUSH MAGDALENO MD Ot 319 UNSPECIFIED INTELLECTUAL DISABILITIES 05/07/2014 PIYUSH MAGDALENO MD Ot 345.90 EPILEPSY UNSPEC W/O MENTION INTRACTABLE 05/07/2014 PIYUSH MAGDALENO MD Ot 401.9 HYPERTENSION NOS 05/07/2014 PIYUSH MAGDALENO MD Ot 462 ACUTE PHARYNGITIS 05/07/2014 PIYUSH MAGDALENO MD Ot 478.19 OTHER DISEASE OF NASAL CAVITY AND SINUSE 05/07/2014 PIYUSH MAGDALENO MD Ot 584.9 ACUTE RENAL FAILURE, UNSPECIFIED 05/07/2014 PIYUSH MAGDALENO MD Ot 596.54 NEUROGENIC BLADDER, NOT OTHERWISE SPECIF 05/07/2014 PIYUSH MAGDALENO MD Ot 780.60 FEVER, UNSPECIFIED 05/07/2014 PIYUSH MAGDALENO MD Ot 780.65 HYPOTHERMIA NOT ASSOCIATED W LOW ENVIRON 05/07/2014 PIYUSH MAGDALENO MD Ot 785.52 SEPTIC SHOCK 05/07/2014 PIYUSH MAGDALENO MD Ot 788.20 RETENTION OF URINE NOS 05/07/2014 PIYUSH MAGDALENO MD Ot 995.91 05/07/2014 PIYUSH MAGDALENO MD Ot 995.92 SEVERE SEPSIS 05/07/2014 PIYUSH MAGDALENO MD Ot E849.7 ACCID IN RESIDENT INSTIT 05/07/2014 PIYUSH MAGDALENO MD Ot E933.1 ADV EFF ANTINEOPLASTIC 05/07/2014 PIYUSH MAGDALENO MD Ot V10.51 HX OF BLADDER MALIGNANCY 05/07/2014 PIYUSH MAGDALENO MD Ot V45.79 ACQRD ABSENCE OF OTH ORGAN 05/07/2014 PIYUSH MAGDALENO MD Ot V58.69 05/23/2014 CELINE PELAEZ MD Ot 272.0 PURE HYPERCHOLESTEROLEM 05/23/2014 CELINE PELAEZ MD Ot 319 UNSPECIFIED INTELLECTUAL DISABILITIES 05/23/2014 CELINE PELAEZ MD Ot 345.90 EPILEPSY UNSPEC W/O MENTION INTRACTABLE 05/23/2014 CELINE PELAEZ MD Ot 401.9 HYPERTENSION NOS 05/23/2014 CELINE PELAEZ MD Ot 560.9 INTESTINAL OBSTRUCT NOS 05/23/2014 CELINE PELAEZ MD Ot 564.00 UNSPEC CONSTIPATION 05/23/2014 LATANYA REHMAN, CELINE Chilel Ot V16.0 FAMILY HX-GI MALIGNANCY 05/23/2014 LATANYA REHMAN, CELINE Chilel Ot V45.79 ACQRD ABSENCE OF OTH ORGAN 05/23/2014 CELINE PELAEZ MD Ot V45.89 POSTSURGICAL STATES NEC 05/23/2014 LATANYA REHMAN, CELINE Chilel Ot V87.41 PERSONAL HISTORY OF ANTINEOPLASTIC CHEMO 06/28/2014 RASTA REHMAN, PIYUSH Villalta Ot 154.1 06/28/2014 RASTA REHMAN, PIYUSH Villalta Ot 272.4 06/28/2014 RASTA REHMAN, PIYUSH Villalta Ot 317 06/28/2014 RASTA REHMAN, PIYUSH Villalta Ot 401.9 06/28/2014 RASTA REHMAN, PIYUSH Villalta Ot 593.3 06/28/2014 RASTA REHMAN, PIYUSH Villalta Ot 596.54 06/28/2014 RASTA REHMAN, PIYUSH Villalta Ot 788.20 06/28/2014 PIYUSH MAGDALENO MD Ot V58.11 07/03/2014 RASTA REHMAN, PIYUSH Villalta Ot 154.1 MALIGNANT NEOPL RECTUM 07/03/2014 RASTA REHMAN, PIYUSH Villalta Ot 272.4 HYPERLIPIDEMIA NEC/NOS 07/03/2014 RASTA REMHAN, PIYUSH Villalta Ot 317 MILD INTELLECTUAL DISABILITIES 07/03/2014 RASTA REHMAN, PIYUSH Villalta Ot 401.9 HYPERTENSION NOS 07/03/2014 RASTA REHMAN, PIYUSH Villalta Ot 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 07/03/2014 RASTA REHMAN, PIYUSH Villalta Ot 596.54 NEUROGENIC BLADDER, NOT OTHERWISE SPECIF 07/03/2014 PIYUSH MAGDALENO MD Ot 788.20 RETENTION OF URINE NOS 07/03/2014 PIYUSH MAGDALENO MD Ot V58.11 ENCOUNTER FOR ANTINEOPLASTIC CHEMOTHERAP 07/24/2014 PIYUSH MAGDALENO MD Ot 154.1 07/24/2014 RASTA REHMAN, PIYUSH Villalta Ot 272.4 07/24/2014 PIYUSH MAGDALENO MD Ot 317 07/24/2014 RASTA REHMAN, PIYUSH Villalta Ot 401.9 07/24/2014 RASTA REHMAN, PIYUSH Villalta Ot 593.3 07/24/2014 PIYUSH MAGDALENO MD Ot 596.54 07/24/2014 PIYUSH MAGDALENO MD Ot 788.20 07/24/2014 PIYUSH MAGDALENO MD Ot V58.11 07/26/2014 PYIUSH MAGDALENO MD Ot 154.1 07/26/2014 RASTA REHMAN, PIYUSH Villalta Ot 272.4 07/26/2014 PIYUSH MAGDALENO MD Ot 317 07/26/2014 RASTA REHMAN, PIYUSH Villalta Ot 401.9 07/26/2014 RASTA REHMAN, PIYUSH Villalta Ot 593.3 07/26/2014 RASTA REHMAN, PIYUSH Villalta Ot 596.54 07/26/2014 RASTA REHMAN, PIYUSH Villalta Ot 788.20 07/27/2014 Ot 154.1 07/27/2014 Ot 783.21 07/30/2014 LATANYA REHMAN, CELINE Chilel Ot 562.10 DIVERTICULOSIS COLON (W/O MENT OF HEMORR 07/30/2014 LATANYA REHMAN, CELINE Chilel Ot V10.06 HX-RECTAL ANAL MALIGN 07/30/2014 LATANYA REHMAN, CELINE Chilel Ot V67.09 SURGERY FOLLOW-UP, OTHER SURGERY 07/31/2014 Ot 154.1 07/31/2014 Ot 783.21 08/14/2014 LATANYA REHMAN, CELINE Chilel Ot V72.84 09/04/2014 RASTA REHMAN, PIYUSH Villalta Ot 154.1 09/04/2014 RASTA REHMAN, PIYUSH Villalta Ot 272.4 09/04/2014 RASTA REHMAN, PIYUSH Villalta Ot 317 09/04/2014 RASTA REHMAN, PIYUSH Villalta Ot 401.9 09/04/2014 PIYUSH MAGDALENO MD Ot 593.3 09/04/2014 RASTA REHMAN, PIYUSH Villalta Ot 596.54 09/04/2014 RASTA REHMAN, PIYUSH Villalta Ot 788.20 09/21/2014 RASTA REHMAN, PIYUSH Villalta Ot 154.1 09/21/2014 RASTA REHMAN, PIYUSH Villalta Ot 272.4 09/21/2014 RASTA REHMAN, PIYUSH Villalta Ot 317 09/21/2014 RASTA REHMAN, PIYUSH Villalta Ot 401.9 09/21/2014 PIYUSH MAGDALENO MD Ot 593.3 09/21/2014 RASTA REHMAN, PIYUSH Villalta Ot 596.54 09/21/2014 PIYUSH MAGDALENO MD Ot 788.20 10/22/2014 RASTA REHMAN, PIYUSH Villalta Ot 154.1 MALIGNANT NEOPL RECTUM 10/22/2014 RASTA REHMAN, PIYUSH Villalta Ot 272.4 HYPERLIPIDEMIA NEC/NOS 10/22/2014 RASTA REHMAN, PIYUSH Villalta Ot 317 MILD INTELLECTUAL DISABILITIES 10/22/2014 PIYUSH MAGDALENO MD Ot 401.9 HYPERTENSION NOS 10/22/2014 PIYUSH MAGDALENO MD Ot 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 10/22/2014 RASTA REHMAN, PIYUSH Villalta Ot 596.54 NEUROGENIC BLADDER, NOT OTHERWISE SPECIF 10/22/2014 PIYUSH MAGDALENO MD Ot 788.20 RETENTION OF URINE NOS 10/23/2014 RASTA REHMAN, PIYUSH Ambar Ot 154.1 10/23/2014 RASTA REHMAN, PIYUSH Villalta Ot 272.4 10/23/2014 RASTA REHMAN, PIYUSH Ambar Ot 317 10/23/2014 RASTA REHMAN, PIYUSH Ambar Ot 401.9 10/23/2014 RASTA REHMAN, PIYUSH Villalta Ot 593.3 10/23/2014 RASTA REHMAN, PIYUSH Villalta Ot 596.54 10/23/2014 RASTA REHMAN, PIYUSH Villalta Ot 788.20 10/30/2014 RASTA REHMAN, PIYUSH Villalta Ot 154.1 10/30/2014 RASTA REHMAN, PIYUSH Ambar Ot 272.4 10/30/2014 RASTA REHMAN, PIYSUH Ambar Ot 317 10/30/2014 RASTA REHMAN, PIYUSH K Ot 401.9 10/30/2014 RASTA REHMAN, PIYUSH K Ot 593.3 10/30/2014 RASTA REHMAN, PIYUSH K Ot 596.54 10/30/2014 RASTA REHMAN, PIYUSH Ambar Ot 788.20 10/31/2014 RASTA REHMAN, PIYUSH Villalta Ot 154.1 10/31/2014 RASTA REHMAN, PIYUSH Ambar Ot 272.4 10/31/2014 RASTA REHMAN, PIYUSH K Ot 317 10/31/2014 RASTA REHMAN, PIYUSH K Ot 401.9 10/31/2014 RASTA REHMAN, PIYUSH K Ot 593.3 10/31/2014 RASTA REHMAN, PIYUSH K Ot 596.54 10/31/2014 RASTA REHMAN, PIYUSH Villalta Ot 788.20 11/29/2014 RASTA REHMAN, PIYUSH Ambar Ot 154.1 11/29/2014 RASTA REHMAN, PIYUSH K Ot 272.4 11/29/2014 RASTA REHMAN, PIYUSH K Ot 317 11/29/2014 RASTA REHMAN, PIYUSH K Ot 401.9 11/29/2014 RASTA REHMAN, PIYUSH K Ot 593.3 11/29/2014 RASTA REHMAN, PIYUSH K Ot 596.54 11/29/2014 RASTA REHMAN, PIYUSH K Ot 788.20 12/05/2014 RASTA REHMAN, PIYUSH K Ot 154.1 12/05/2014 RASTA REHMAN, PIYUSH K Ot 272.4 12/05/2014 RASTA REHMAN, PIYUSH K Ot 317 12/05/2014 RASTA REHMAN, PIYUSH K Ot 401.9 12/05/2014 RASTA REHMAN, PIYUSH K Ot 593.3 12/05/2014 RASTA REHMAN, PIYUSH K Ot 596.54 12/05/2014 PIYUSH MAGDALENO MD Ot 788.20 01/28/2015 PIYUSH MAGDALENO MD Ot 154.1 MALIGNANT NEOPL RECTUM 01/28/2015 PIYUSH MAGDALENO MD Ot 272.4 HYPERLIPIDEMIA NEC/NOS 01/28/2015 PIYUSH MAGDALENO MD Ot 317 MILD INTELLECTUAL DISABILITIES 01/28/2015 PIYUSH MAGDALENO MD Ot 401.9 HYPERTENSION NOS 01/28/2015 PIYUSH MAGDALENO MD Ot 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 01/28/2015 PIYUSH MAGDALENO MD Ot 596.54 NEUROGENIC BLADDER, NOT OTHERWISE SPECIF 01/28/2015 PIYUSH MAGDALENO MD Ot 788.20 RETENTION OF URINE NOS 01/28/2015 PIYUSH MAGDALENO MD Ot C20 MALIGNANT NEOPLASM OF RECTUM 01/28/2015 PIYUSH MAGDALENO MD Ot F70 MILD INTELLECTUAL DISABILITIES 01/28/2015 PIYUSH MAGDALENO MD Ot I10 ESSENTIAL (PRIMARY) HYPERTENSION 01/28/2015 PIYUSH MAGDALENO MD Ot N13.5 CROSSING VESSEL AND STRICTURE OF URETER 01/28/2015 PIYUSH MAGDALENO MD Ot N31.9 NEUROMUSCULAR DYSFUNCTION OF BLADDER, UN 01/28/2015 PIYUSH MAGDALENO MD Ot R33.9 RETENTION OF URINE, UNSPECIFIED 01/30/2015 PIYUSH MAGDALENO MD Ot 154.1 MALIGNANT NEOPL RECTUM 01/30/2015 PIYUSH MAGDALENO MD Ot 272.4 HYPERLIPIDEMIA NEC/NOS 01/30/2015 PIYUSH MAGDALENO MD Ot 317 MILD INTELLECTUAL DISABILITIES 01/30/2015 PIYUSH MAGDALENO MD Ot 401.9 HYPERTENSION NOS 01/30/2015 PIYUSH MAGDALENO MD Ot 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 01/30/2015 PIYUSH MAGDALENO MD Ot 596.54 NEUROGENIC BLADDER, NOT OTHERWISE SPECIF 01/30/2015 PIYUSH MAGDALENO MD Ot 788.20 RETENTION OF URINE NOS 01/30/2015 PIYUSH MAGDALENO MD Ot 154.1 01/30/2015 PIYUSH MAGDALENO MD Ot 272.4 01/30/2015 PIYUSH MAGDALENO MD Ot 317 01/30/2015 PIYUSH MAGDALENO MD Ot 401.9 01/30/2015 PIYUSH MAGDALENO MD Ot 593.3 01/30/2015 PIYUSH MAGDALENO MD Ot 596.54 01/30/2015 PIYUSH MAGDALENO MD Ot 788.20 02/12/2015 ELSA ALATORRE MD Ot 591 02/12/2015 CELI MD, ELSA A Ot 599.60 02/12/2015 CELI REHMAN, ELSA A Ot 793.5 02/12/2015 JOEL BUCK PIN STICKER Ot 154.1 02/12/2015 JOEL BUCK PIN STICKER Ot 319 02/12/2015 JOEL BUCK S PIN STICKER Ot 593.3 02/12/2015 JOEL BUCK S PIN STICKER Ot 596.54 02/12/2015 BUCKJOEL Rider S PIN STICKER Ot 788.20 02/12/2015 BUCKJOEL Rider S PIN STICKER Ot V58.69 02/12/2015 LATANYA REHMAN, CELINE M Ot 153.9 02/12/2015 LATANYA REHMAN, CELINE M Ot V72.84 02/12/2015 LATANYA REHMAN, CELINE M Ot 153.9 02/12/2015 LATANYA REHMAN, CELINE M Ot V72.63 02/12/2015 LATANYA REHMAN, CELINE M Ot V74.8 02/12/2015 LATANYA REHMAN, CELINE M Ot 154.1 02/12/2015 LATANYA REHMAN, CELINE M Ot V72.84 02/12/2015 JACK REHMAN, Mira KAPADIA Ot 591 02/12/2015 JACK REHMAN, Mira [place] Ot 788.20 02/12/2015 BUCKJOEL Rider PIN STICKER Ot 154.1 02/12/2015 BUCKJOEL Rider PIN STICKER Ot 272.4 02/12/2015 BUCKJOEL Rider PIN STICKER Ot 317 02/12/2015 BUCKJOEL Rider PIN STICKER Ot 401.9 02/12/2015 Ot 154.1 02/12/2015 Ot 783.21 02/12/2015 LATANYA REHMAN, CELINE M Ot V72.84 02/12/2015 RASTA REHMAN, PIYUSH Villalta Ot 154.1 02/12/2015 RASTA REHMAN, PIYUSH Villalta Ot 272.4 02/12/2015 RASTA REHMAN, PIYUSH [place] Ot 317 02/12/2015 RASTA REHMAN, PIYUSH [place] Ot 401.9 02/12/2015 RASTA REHMAN, PIYUSH [place] Ot 593.3 02/12/2015 RASTA REHMAN, PIYUSH [place] Ot 596.54 02/12/2015 RASTA REHMAN, PIYUSH [place] Ot 788.20 02/28/2015 RASTA REHMAN, PIYUSH [place] Ot 154.1 02/28/2015 RASTA REHMAN, PIYUSH K Ot 272.4 02/28/2015 RASTA REHMAN, PIYUSH K Ot 317 02/28/2015 RASTA REHMAN, PIYUSH K Ot 401.9 02/28/2015 RASTA REHMAN, PIYUSH [place] Ot 593.3 02/28/2015 RASTA REHMAN, PIYUSH [place] Ot 596.54 02/28/2015 RASTA REHMAN, PIYUSH Ambar Ot 788.20 03/05/2015 RASTA REHMAN, PIYUSH K Ot C20 03/15/2015 RASTA REHMAN, PIYUSH K Ot C20 04/16/2015 RASTA REHMAN, PIYUSH K Ot 154.1 04/16/2015 RASTA REHMAN, PIYUSH K Ot 272.4 04/16/2015 RASTA REHMAN, PIYUSH K Ot 317 04/16/2015 RASTA REHMAN, PIYUSH K Ot 401.9 04/16/2015 RASTA REHMAN, PIYUSH [place] Ot 593.3 04/16/2015 ARSTA REHMAN, PIYUSH [place] Ot 596.54 04/16/2015 RASTA REHMAN, PIYUSH Ambar Ot 788.20 05/07/2015 RASTA REHMAN, PIYUSH Ambar Ot C20 05/07/2015 RASTA REHMAN, PIYUSH [place] Ot E78.5 05/07/2015 RASTA REHMAN, PIYUSH [place] Ot F70 05/07/2015 RASTA REHMAN, PIYUSH K Ot I10 05/07/2015 RASTA REHMAN, PIYUSH Ambar Ot N13.5 05/07/2015 RASTA REHMAN, PIYUSH [place] Ot N31.9 05/13/2015 RASTA REHMAN, PIYUSH Ambar Ot C20 05/13/2015 RASTA REHMAN, PIYUSH [place] Ot E78.5 05/13/2015 RASTA REHMAN, PIYUSH [place] Ot F70 05/13/2015 RASTA REHMAN, PIYUSH Ambar Ot I10 05/13/2015 RASTA REHMAN, PIYUSH [place] Ot N13.5 05/13/2015 RASTA REHMAN, PIYUSH Ambar Ot N31.9 06/05/2015 RASTA REHMAN, PIYUSH K Ot C20 MALIGNANT NEOPLASM OF RECTUM 06/05/2015 RASTA REHMAN, PIYUSH [place] Ot E78.5 HYPERLIPIDEMIA, UNSPECIFIED 06/05/2015 RASTA REHMAN, PIYUSH K Ot F70 MILD INTELLECTUAL DISABILITIES 06/05/2015 RASTA REHMAN, PIYUSH K Ot I10 ESSENTIAL (PRIMARY) HYPERTENSION 06/05/2015 RASTA REHMAN, PIYUSH [place] Ot N13.5 CROSSING VESSEL AND STRICTURE OF URETER 06/05/2015 RASTA REHMAN, PIYUSH [place] Ot N31.9 NEUROMUSCULAR DYSFUNCTION OF BLADDER, UN 08/29/2015 RASTA REHMAN, PIYUSH K Ot C20 MALIGNANT NEOPLASM OF RECTUM 08/29/2015 RASTA MD, PIYUSH K Ot E78.5 HYPERLIPIDEMIA, UNSPECIFIED 08/29/2015 PIYUSH MAGDALENO MD Ot F70 MILD INTELLECTUAL DISABILITIES 08/29/2015 PIYUSH MAGDALENO MD, Ot I10 ESSENTIAL (PRIMARY) HYPERTENSION 08/29/2015 PIYUSH MAGDALENO MD, Ot N13.5 CROSSING VESSEL AND STRICTURE OF URETER 08/29/2015 PIYUSH MAGDALENO MD, Ot N31.9 NEUROMUSCULAR DYSFUNCTION OF BLADDER, UN 09/03/2015 PIYUSH MAGDALENO MD, Ot C20 MALIGNANT NEOPLASM OF RECTUM 09/03/2015 PIYUSH MAGDALENO MD, Ot E78.5 HYPERLIPIDEMIA, UNSPECIFIED 09/03/2015 PIYUSH MADGALENO MD, Ot F70 MILD INTELLECTUAL DISABILITIES 09/03/2015 PIYUSH MAGDALENO MD, Ot I10 ESSENTIAL (PRIMARY) HYPERTENSION 09/03/2015 PIYUSH MAGDALENO MD, Ot N13.5 CROSSING VESSEL AND STRICTURE OF URETER 09/03/2015 PIYUSH MAGDALENO MD, Ot N31.9 NEUROMUSCULAR DYSFUNCTION OF BLADDER, UN 09/05/2015 PIYUSH MAGDALENO MD, Ot C20 MALIGNANT NEOPLASM OF RECTUM 09/05/2015 PIYUSH MAGDALENO MD, Ot E78.5 HYPERLIPIDEMIA, UNSPECIFIED 09/05/2015 PIYUSH MAGDALENO MD, Ot F70 MILD INTELLECTUAL DISABILITIES 09/05/2015 PIYUSH MAGDALENO MD, Ot I10 ESSENTIAL (PRIMARY) HYPERTENSION 09/05/2015 PIYUSH MAGDALENO MD, Ot N13.5 CROSSING VESSEL AND STRICTURE OF URETER 09/05/2015 PIYUSH MAGDALENO MD, Ot N31.9 NEUROMUSCULAR DYSFUNCTION OF BLADDER, UN 09/23/2015 PIYUSH MAGDALENO MD, Ot C20 MALIGNANT NEOPLASM OF RECTUM 10/23/2015 PIYUSH MAGDALENO MD, Ot C20 MALIGNANT NEOPLASM OF RECTUM 10/25/2015 PIYUSH MAGDALENO MD, Ot C20 MALIGNANT NEOPLASM OF RECTUM 10/26/2015 PIYUSH MAGDALENO MD, Ot C20 MALIGNANT NEOPLASM OF RECTUM 10/26/2015 PIYUSH MAGDALENO MD, Ot E78.5 HYPERLIPIDEMIA, UNSPECIFIED 10/26/2015 PIYUSH MAGDALENO MD Ot F70 MILD INTELLECTUAL DISABILITIES 10/26/2015 PIYUSH MAGDALENO MD, Ot I10 ESSENTIAL (PRIMARY) HYPERTENSION 10/26/2015 PIYUSH MAGDALENO MD, Ot N13.5 CROSSING VESSEL AND STRICTURE OF URETER 10/26/2015 PIYUSH MAGDALENO MD Ot N31.9 NEUROMUSCULAR DYSFUNCTION OF BLADDER, UN 10/29/2015 PIYUSH MAGDALENO MD, Ot C20 MALIGNANT NEOPLASM OF RECTUM 10/29/2015 PIYUSH MAGDALENO MD, Ot E78.5 HYPERLIPIDEMIA, UNSPECIFIED 10/29/2015 PIYUSH MAGDALENO MD Ot F70 MILD INTELLECTUAL DISABILITIES 10/29/2015 PIYUSH MAGDALENO MD, Ot I10 ESSENTIAL (PRIMARY) HYPERTENSION 10/29/2015 PIYUSH MAGDALENO MD, Ot N13.5 CROSSING VESSEL AND STRICTURE OF URETER 10/29/2015 PIYUSH MAGDALENO MD Ot N31.9 NEUROMUSCULAR DYSFUNCTION OF BLADDER, UN 12/03/2015 PIYUSH MAGDALENO MD, Ot C20 MALIGNANT NEOPLASM OF RECTUM 12/03/2015 PIYUSH MAGDALENO MD, Ot E78.5 HYPERLIPIDEMIA, UNSPECIFIED 12/03/2015 PIYUSH MAGDALENO MD Ot F70 MILD INTELLECTUAL DISABILITIES 12/03/2015 PIYUSH MAGDALENO MD, Ot I10 ESSENTIAL (PRIMARY) HYPERTENSION 12/03/2015 PIYUSH MAGDALENO MD, Ot N13.5 CROSSING VESSEL AND STRICTURE OF URETER 12/03/2015 PIYUSH MAGDALENO MD, Ot N31.9 NEUROMUSCULAR DYSFUNCTION OF BLADDER, UN 12/16/2015 PIYUSH MAGDALENO MD, Ot C20 MALIGNANT NEOPLASM OF RECTUM 12/16/2015 PIYUSH MAGDALENO MD, Ot E78.5 HYPERLIPIDEMIA, UNSPECIFIED 12/16/2015 PIYUSH MAGDALENO MD Ot F70 MILD INTELLECTUAL DISABILITIES 12/16/2015 PIYUSH MAGDALENO MD, Ot I10 ESSENTIAL (PRIMARY) HYPERTENSION 12/16/2015 PIYUSH MAGDALENO MD, Ot N13.5 CROSSING VESSEL AND STRICTURE OF URETER 12/16/2015 PIYUSH MAGDALENO MD Ot N31.9 NEUROMUSCULAR DYSFUNCTION OF BLADDER, UN 12/24/2015 PIYUSH MAGDALENO MD, Ot C20 MALIGNANT NEOPLASM OF RECTUM 12/24/2015 PIYUSH MAGDALENO MD, Ot E78.5 HYPERLIPIDEMIA, UNSPECIFIED 12/24/2015 PIYUSH MAGDALENO MD Ot F70 MILD INTELLECTUAL DISABILITIES 12/24/2015 PIYUSH MAGDALENO MD Ot I10 ESSENTIAL (PRIMARY) HYPERTENSION 12/24/2015 PIYUSH MAGDALENO MD, Ot N13.5 CROSSING VESSEL AND STRICTURE OF URETER 12/24/2015 PIYUSH MAGDALENO MD Ot N31.9 NEUROMUSCULAR DYSFUNCTION OF BLADDER, UN 01/23/2016 PIYUSH MAGDALENO MD, Ot C20 MALIGNANT NEOPLASM OF RECTUM 01/23/2016 PIYUSH MAGDALENO MD, Ot E78.5 HYPERLIPIDEMIA, UNSPECIFIED 01/23/2016 PIYUSH MAGDALENO MD Ot F70 MILD INTELLECTUAL DISABILITIES 01/23/2016 PIYUSH MAGDALENO MD Ot I10 ESSENTIAL (PRIMARY) HYPERTENSION 01/23/2016 PIYUSH MAGDALENO MD, Ot N13.5 CROSSING VESSEL AND STRICTURE OF URETER 01/23/2016 PIYUSH MAGDALENO MD Ot N31.9 NEUROMUSCULAR DYSFUNCTION OF BLADDER, UN 01/29/2016 PIYUSH MAGDALENO MD Ot C20 MALIGNANT NEOPLASM OF RECTUM 01/29/2016 PIYUSH MAGDALENO MD Ot E78.5 HYPERLIPIDEMIA, UNSPECIFIED 01/29/2016 PIYUSH MAGDALENO MD Ot F70 MILD INTELLECTUAL DISABILITIES 01/29/2016 PIYUSH MAGDALENO MD Ot I10 ESSENTIAL (PRIMARY) HYPERTENSION 01/29/2016 PIYUSH MAGDALENO MD Ot N13.5 CROSSING VESSEL AND STRICTURE OF URETER 01/29/2016 PIYUSH MAGDALENO MD Ot N31.9 NEUROMUSCULAR DYSFUNCTION OF BLADDER, UN 02/10/2016 PIYUSH MAGDALENO MD Ot C20 MALIGNANT NEOPLASM OF RECTUM 02/10/2016 PIYUSH MAGDALENO MD, Ot E78.5 HYPERLIPIDEMIA, UNSPECIFIED 02/10/2016 PIYUSH MAGDALENO MD Ot F70 MILD INTELLECTUAL DISABILITIES 02/10/2016 PIYUSH MAGDALENO MD Ot I10 ESSENTIAL (PRIMARY) HYPERTENSION 02/10/2016 PIYUSH MAGDALENO MD Ot N13.5 CROSSING VESSEL AND STRICTURE OF URETER 02/10/2016 PIYUSH MAGDALENO MD Ot N31.9 NEUROMUSCULAR DYSFUNCTION OF BLADDER, UN 03/16/2016 CELI REHMAN, ELSA Hannah Ot 591 HYDRONEPHROSIS 03/16/2016 CELI REHMAN, ELSA Hannah Ot 599.60 URINARY OBSTRUCTION, UNSPECIFIED 03/16/2016 CELI REHMAN, ELSA Hannah Ot 793.5 NOSP (ABN) FINDINGS ON RADIOLOGICAL OT 03/16/2016 JOEL BUCK PIN STICKER Ot 154.1 MALIGNANT NEOPL RECTUM 03/16/2016 JOEL BUCK PIN STICKER Ot 319 UNSPECIFIED INTELLECTUAL DISABILITIES 03/16/2016 JOEL BUCK PIN STICKER Ot 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 03/16/2016 JOEL BUCK PIN STICKER Ot 596.54 NEUROGENIC BLADDER, NOT OTHERWISE SPECIF 03/16/2016 JOEL BUCK PIN STICKER Ot 788.20 RETENTION OF URINE NOS 03/16/2016 JOEL BUCK PIN STICKER Ot V58.69 OT MED,LT,CURRENT USE 03/16/2016 LATANYA REHMAN, CELINE Chilel Ot 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 03/16/2016 LATANYA REHMAN, CELINE Chilel Ot V72.84 EXAM PRE-OPERATIVE NOS 03/16/2016 LATANYA REHMAN, CELINE Chilel Ot 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 03/16/2016 LATANYA REHMAN, CELINE Chilel Ot V72.63 PRE-PROCEDURAL LABORATORY EXAMINATION 03/16/2016 LATANYA REHMAN, CELINE Chilel Ot V74.8 SCREEN-BACTERIAL DIS NEC 03/16/2016 LATANYA REHMAN, CELINE [place]l Ot 154.1 MALIGNANT NEOPL RECTUM 03/16/2016 LATANYA REHMAN, CELINE Chilel Ot V72.84 EXAM PRE-OPERATIVE NOS 03/16/2016 JACK REHMAN, Mira KAPADIA Ot 591 HYDRONEPHROSIS 03/16/2016 JACK REHMAN, Mira K[place]IA Ot 788.20 RETENTION OF URINE NOS 03/16/2016 BUCK HILAH S PIN STICKER Ot 154.1 MALIGNANT NEOPL RECTUM 03/16/2016 BUCK HILAH S PIN STICKER Ot 272.4 HYPERLIPIDEMIA NEC/NOS 03/16/2016 BUCK, HILAH S PIN STICKER Ot 317 MILD INTELLECTUAL DISABILITIES 03/16/2016 BUCK HILAH S PIN STICKER Ot 401.9 HYPERTENSION NOS 03/16/2016 Ot 154.1 MALIGNANT NEOPL RECTUM 03/16/2016 Ot 783.21 LOSS OF WEIGHT 03/16/2016 LATANYA REHMAN, CELINE Chilel Ot V72.84 EXAM PRE-OPERATIVE NOS 03/16/2016 PIYUSH MAGDALENO MD Ot C20 MALIGNANT NEOPLASM OF RECTUM 03/16/2016 PIYUSH MAGDALENO MD Ot C20 MALIGNANT NEOPLASM OF RECTUM 03/16/2016 PIYUSH MAGDALENO MD Ot C20 MALIGNANT NEOPLASM OF RECTUM 03/16/2016 PIYUSH MAGDALENO MD Ot E78.5 HYPERLIPIDEMIA, UNSPECIFIED 03/16/2016 PIYUSH MAGDALENO MD Ot F70 MILD INTELLECTUAL DISABILITIES 03/16/2016 PIYUSH MAGDALENO MD Ot I10 ESSENTIAL (PRIMARY) HYPERTENSION 03/16/2016 PIYUSH MAGDALENO MD Ot N13.5 CROSSING VESSEL AND STRICTURE OF URETER 03/16/2016 PIYUSH MAGDALENO MD Ot N31.9 NEUROMUSCULAR DYSFUNCTION OF BLADDER, UN 03/17/2016 PIYUSH MAGDALENO MD Ot C20 MALIGNANT NEOPLASM OF RECTUM 03/17/2016 PIYUSH MAGDALENO MD Ot E78.5 HYPERLIPIDEMIA, UNSPECIFIED 03/17/2016 PIYUSH MAGDALENO MD Ot F70 MILD INTELLECTUAL DISABILITIES 03/17/2016 PIYUSH MAGDALENO MD Ot I10 ESSENTIAL (PRIMARY) HYPERTENSION 03/17/2016 PIYUSH MAGDALENO MD Ot N13.5 CROSSING VESSEL AND STRICTURE OF URETER 03/17/2016 PIYUSH MAGDALENO MD Ot N31.9 NEUROMUSCULAR DYSFUNCTION OF BLADDER, UN 03/18/2016 PIYUSH MAGDALENO MD Ot C20 MALIGNANT NEOPLASM OF RECTUM 04/07/2016 PIYUSH MAGDALENO MD, Ot C20 MALIGNANT NEOPLASM OF RECTUM 04/14/2016 PIYUSH MAGDALENO MD Ot C20 MALIGNANT NEOPLASM OF RECTUM 04/29/2016 PIYUSH MAGDALENO MD, Ot C20 MALIGNANT NEOPLASM OF RECTUM 04/29/2016 PIYUSH MAGDALENO MD Ot E78.5 HYPERLIPIDEMIA, UNSPECIFIED 04/29/2016 PIYUSH MAGDALENO MD Ot F70 MILD INTELLECTUAL DISABILITIES 04/29/2016 PIYUSH MAGDALENO MD Ot I10 ESSENTIAL (PRIMARY) HYPERTENSION 04/29/2016 PIYUSH MAGDALENO MD Ot N13.5 CROSSING VESSEL AND STRICTURE OF URETER 04/29/2016 PIYUSH MAGDALENO MD Ot N31.9 NEUROMUSCULAR DYSFUNCTION OF BLADDER, UN 04/30/2016 PIYUSH MAGDALENO MD, Ot C20 MALIGNANT NEOPLASM OF RECTUM 04/30/2016 PIYUSH MAGDALENO MD Ot E78.5 HYPERLIPIDEMIA, UNSPECIFIED 04/30/2016 PIYUSH MAGDALENO MD Ot F70 MILD INTELLECTUAL DISABILITIES 04/30/2016 PIYUSH MAGDALENO MD Ot I10 ESSENTIAL (PRIMARY) HYPERTENSION 04/30/2016 PIYUSH MAGDALENO MD Ot N13.5 CROSSING VESSEL AND STRICTURE OF URETER 04/30/2016 PIYUSH MAGDALENO MD Ot N31.9 NEUROMUSCULAR DYSFUNCTION OF BLADDER, UN 06/14/2016 PIYUSH MAGDALENO MD, Ot C20 MALIGNANT NEOPLASM OF RECTUM 06/14/2016 PIYUSH MAGDALENO MD Ot E78.5 HYPERLIPIDEMIA, UNSPECIFIED 06/14/2016 PIYUSH MAGDALENO MD Ot F70 MILD INTELLECTUAL DISABILITIES 06/14/2016 PIYUSH MAGDALENO MD Ot I10 ESSENTIAL (PRIMARY) HYPERTENSION 06/14/2016 PIYUSH MAGDALENO MD, Ot N13.5 CROSSING VESSEL AND STRICTURE OF URETER 06/14/2016 PIYUSH MAGDALENO MD Ot N31.9 NEUROMUSCULAR DYSFUNCTION OF BLADDER, UN 06/18/2016 PIYUSH MAGDALENO MD Ot C20 MALIGNANT NEOPLASM OF RECTUM 06/18/2016 PIYUSH MAGDALENO MD Ot E78.5 HYPERLIPIDEMIA, UNSPECIFIED 06/18/2016 PIYUSH MAGDALENO MD Ot F70 MILD INTELLECTUAL DISABILITIES 06/18/2016 PIYUSH MAGDALENO MD Ot I10 ESSENTIAL (PRIMARY) HYPERTENSION 06/18/2016 PIYUSH MAGDALENO MD Ot N13.5 CROSSING VESSEL AND STRICTURE OF URETER 06/18/2016 PIYUSH MAGDALENO MD Ot N31.9 NEUROMUSCULAR DYSFUNCTION OF BLADDER, UN 06/18/2016 PIYUSH MAGDALENO MD Ot Z79.899 OTHER PAWN BROKER (CURRENT) DRUG THERAPY 06/19/2016 PIYUSH MAGDALENO MD, Ot C20 MALIGNANT NEOPLASM OF RECTUM 06/19/2016 PIYUSH MAGDALENO MD Ot N13.39 OTHER HYDRONEPHROSIS 07/05/2016 PIYUSH MAGDALENO MD, Ot C20 MALIGNANT NEOPLASM OF RECTUM 07/05/2016 PIYUSH MAGDALENO MD Ot N13.39 OTHER HYDRONEPHROSIS 07/21/2016 PIYUSH MAGDALENO MD, Ot C20 MALIGNANT NEOPLASM OF RECTUM 07/21/2016 PIYUSH MAGDALENO MD, Ot N13.39 OTHER HYDRONEPHROSIS 07/28/2016 PIYUSH MAGDALENO MD, Ot C20 MALIGNANT NEOPLASM OF RECTUM 07/28/2016 PIYUSH MAGDALENO MD, Ot N13.39 OTHER HYDRONEPHROSIS 08/10/2016 PIYUSH MAGDALENO MD, Ot C20 MALIGNANT NEOPLASM OF RECTUM 08/10/2016 PIYUSH MAGDALENO MD Ot E78.5 HYPERLIPIDEMIA, UNSPECIFIED 08/10/2016 PIYUHS MAGDALENO MD Ot F70 MILD INTELLECTUAL DISABILITIES 08/10/2016 PIYUSH MAGDALENO MD Ot I10 ESSENTIAL (PRIMARY) HYPERTENSION 08/10/2016 PIYUSH MAGDALENO MD, Ot N13.5 CROSSING VESSEL AND STRICTURE OF URETER 08/10/2016 PIYUSH MAGDALENO MD Ot N31.9 NEUROMUSCULAR DYSFUNCTION OF BLADDER, UN 08/10/2016 PIYUSH MAGDALENO MD, Ot Z79.899 OTHER [facility] (CURRENT) DRUG THERAPY 08/13/2016 PIYUSH MAGDALENO MD, Ot C20 MALIGNANT NEOPLASM OF RECTUM 08/13/2016 PIYUSH MAGDALENO MD Ot E78.5 HYPERLIPIDEMIA, UNSPECIFIED 08/13/2016 PIYUSH MAGDALENO MD Ot F70 MILD INTELLECTUAL DISABILITIES 08/13/2016 PIYUSH MAGDALENO MD Ot I10 ESSENTIAL (PRIMARY) HYPERTENSION 08/13/2016 PIYUSH MAGDALENO MD, Ot N13.5 CROSSING VESSEL AND STRICTURE OF URETER 08/13/2016 PIYUSH MAGDALENO MD Ot N31.9 NEUROMUSCULAR DYSFUNCTION OF BLADDER, UN 08/13/2016 PIYUSH MAGDALENO MD Ot Z79.899 OTHER [facility] (CURRENT) DRUG THERAPY 09/15/2016 PIYUSH MAGDALENO MD Ot C20 MALIGNANT NEOPLASM OF RECTUM 09/15/2016 PIYUSH MAGDALENO MD Ot E78.5 HYPERLIPIDEMIA, UNSPECIFIED 09/15/2016 PIYUSH MAGDALENO MD Ot F70 MILD INTELLECTUAL DISABILITIES 09/15/2016 PIYUSH MAGDALENO MD, Ot I10 ESSENTIAL (PRIMARY) HYPERTENSION 09/15/2016 PIYUSH MAGDALENO MD Ot N13.5 CROSSING VESSEL AND STRICTURE OF URETER 09/15/2016 PIYUSH MAGDALENO MD, Ot N31.9 NEUROMUSCULAR DYSFUNCTION OF BLADDER, UN 09/15/2016 PIYUSH MAGDALENO MD, Ot Z79.899 OTHER PAWN BROKER (CURRENT) DRUG THERAPY 12/10/2016 JULIA MORALES MD Ot E78.00 PURE HYPERCHOLESTEROLEMIA, UNSPECIFIED 12/10/2016 JULIA MORALES MD, Ot I10 ESSENTIAL (PRIMARY) HYPERTENSION 12/10/2016 JULIA MORALES MD Ot R34 ANURIA AND OLIGURIA 12/10/2016 JULIA MORALES MD Ot R61 GENERALIZED HYPERHIDROSIS 12/10/2016 JULIA MORALES MD Ot Z79.899 OTHER PAWN BROKER (CURRENT) DRUG THERAPY 12/10/2016 JULIA MORALES MD Ot Z85.038 PERSONAL HISTORY OF MALIGNANT NEOPLASM O 12/10/2016 JULIA MORALES MD Ot Z90.49 ACQUIRED ABSENCE OF OTHER SPECIFIED PART 12/10/2016 JULIA MORALES MD Ot Z96.0 PRESENCE OF UROGENITAL IMPLANTS 12/11/2016 JULIA MORALES MD Ot E78.00 PURE HYPERCHOLESTEROLEMIA, UNSPECIFIED 12/11/2016 JULIA MORALES MD, Ot I10 ESSENTIAL (PRIMARY) HYPERTENSION 12/11/2016 JULIA MORALES MD Ot R34 ANURIA AND OLIGURIA 12/11/2016 JULIA MORALES MD Ot R61 GENERALIZED HYPERHIDROSIS 12/11/2016 JULIA MORALES MD Ot Z79.899 OTHER [facility] (CURRENT) DRUG THERAPY 12/11/2016 JULIA MORALES MD Ot Z85.038 PERSONAL HISTORY OF MALIGNANT NEOPLASM O 12/11/2016 JULIA MORALES MD Ot Z90.49 ACQUIRED ABSENCE OF OTHER SPECIFIED PART 12/11/2016 JULIA MORALES MD Ot Z96.0 PRESENCE OF UROGENITAL IMPLANTS 12/11/2016 NEELIMA HESTER MD Ot C20 MALIGNANT NEOPLASM OF RECTUM 12/11/2016 NEELIMA HESTER MD, Ot E78.5 HYPERLIPIDEMIA, UNSPECIFIED 12/11/2016 NEELIMA HESTER MD, Ot F70 MILD INTELLECTUAL DISABILITIES 12/11/2016 NEELIMA HESTER MD, Ot I10 ESSENTIAL (PRIMARY) HYPERTENSION 12/11/2016 NEELIMA HESTER MD, Ot N13.5 CROSSING VESSEL AND STRICTURE OF URETER 12/11/2016 NEELIMA HETSER MD, Ot N31.9 NEUROMUSCULAR DYSFUNCTION OF BLADDER, UN 12/11/2016 NEELIMA HESTER MD, Ot Z79.899 OTHER [facility] (CURRENT) DRUG THERAPY 12/14/2016 NEELIMA HESTER MD, Ot C20 MALIGNANT NEOPLASM OF RECTUM 12/14/2016 NEELIMA HESTER MD, Ot E78.5 HYPERLIPIDEMIA, UNSPECIFIED 12/14/2016 NEELIMA HESTER MD, Ot F70 MILD INTELLECTUAL DISABILITIES 12/14/2016 NEELIMA HESTER MD, Ot I10 ESSENTIAL (PRIMARY) HYPERTENSION 12/14/2016 NEELIMA HESTER MD, Ot N13.5 CROSSING VESSEL AND STRICTURE OF URETER 12/14/2016 NEELIMA HESTER MD, Ot N31.9 NEUROMUSCULAR DYSFUNCTION OF BLADDER, UN 12/14/2016 NEELIMA HESTER MD, Ot Z79.899 OTHER PAWN BROKER (CURRENT) DRUG THERAPY 12/24/2016 NEELIMA HESTER MD, Ot C20 MALIGNANT NEOPLASM OF RECTUM 12/24/2016 NEELIMA HESTER MD, Ot E78.5 HYPERLIPIDEMIA, UNSPECIFIED 12/24/2016 NEELIMA HESTER MD, Ot F70 MILD INTELLECTUAL DISABILITIES 12/24/2016 NEELIMA HESTER MD, Ot I10 ESSENTIAL (PRIMARY) HYPERTENSION 12/24/2016 NEELIMA HESTER MD, Ot N13.5 CROSSING VESSEL AND STRICTURE OF URETER 12/24/2016 NEELIMA HESTER MD, Ot N31.9 NEUROMUSCULAR DYSFUNCTION OF BLADDER, UN 12/24/2016 NEELIMA HESTER MD, Ot Z79.899 OTHER PAWN BROKER (CURRENT) DRUG THERAPY 12/28/2016 PIYUSH MAGDALENO MD, Ot C20 MALIGNANT NEOPLASM OF RECTUM 12/28/2016 PIYUSH MAGDALENO MD, Ot N13.30 UNSPECIFIED HYDRONEPHROSIS 12/28/2016 PIYUSH MAGDALENO MD, Ot N26.1 ATROPHY OF KIDNEY (TERMINAL) 12/28/2016 PIYUSH MAGDALENO MD, Ot Z96.0 PRESENCE OF UROGENITAL IMPLANTS 12/28/2016 PIYUSH MAGDALENO MD, Ot Z98.890 OTHER SPECIFIED POSTPROCEDURAL STATES 12/31/2016 PIYUSH MAGDALENO MD, Ot C20 MALIGNANT NEOPLASM OF RECTUM 12/31/2016 PIYUSH MAGDALENO MD Ot N13.30 UNSPECIFIED HYDRONEPHROSIS 12/31/2016 PIYUSH MAGDALENO MD Ot N26.1 ATROPHY OF KIDNEY (TERMINAL) 12/31/2016 PIYUSH MAGDALENO MD Ot Z96.0 PRESENCE OF UROGENITAL IMPLANTS 12/31/2016 PIYUSH MAGDALENO MD Ot Z98.890 OTHER SPECIFIED POSTPROCEDURAL STATES 12/31/2016 NEELIMA HESTER MD, Ot C20 MALIGNANT NEOPLASM OF RECTUM 12/31/2016 NEELIMA HESTER MD, Ot E78.5 HYPERLIPIDEMIA, UNSPECIFIED 12/31/2016 NEELIMA HESTER MD, Ot F70 MILD INTELLECTUAL DISABILITIES 12/31/2016 NEELIMA HESTER MD, Ot I10 ESSENTIAL (PRIMARY) HYPERTENSION 12/31/2016 NEELIMA HESTER MD, Ot N13.5 CROSSING VESSEL AND STRICTURE OF URETER 12/31/2016 NEELIMA HESTER MD, Ot N31.9 NEUROMUSCULAR DYSFUNCTION OF BLADDER, UN 12/31/2016 NEELIMA HESTER MD, Ot Z79.899 OTHER PAWN BROKER (CURRENT) DRUG THERAPY 01/15/2017 PIYUSH MAGDALENO MD, Ot C20 MALIGNANT NEOPLASM OF RECTUM 01/15/2017 PIYUSH MAGDALENO MD, Ot N13.30 UNSPECIFIED HYDRONEPHROSIS 01/15/2017 PIYUSH MAGDALENO MD Ot N26.1 ATROPHY OF KIDNEY (TERMINAL) 01/15/2017 PIYUSH MAGDALENO MD Ot Z96.0 PRESENCE OF UROGENITAL IMPLANTS 01/15/2017 PIYUSH MAGDALENO MD, Ot Z98.890 OTHER SPECIFIED POSTPROCEDURAL STATES 01/15/2017 NEELIMA HESTER MD, Ot C20 MALIGNANT NEOPLASM OF RECTUM 01/15/2017 NEELIMA HESTER MD, Ot E78.5 HYPERLIPIDEMIA, UNSPECIFIED 01/15/2017 NEELIMA HESTER MD, Ot F70 MILD INTELLECTUAL DISABILITIES 01/15/2017 NEELIMA HESTER MD, Ot I10 ESSENTIAL (PRIMARY) HYPERTENSION 01/15/2017 NEELIMA HESTER MD, Ot N13.5 CROSSING VESSEL AND STRICTURE OF URETER 01/15/2017 NEELIMA HESTER MD, Ot N31.9 NEUROMUSCULAR DYSFUNCTION OF BLADDER, UN 01/15/2017 NEELIMA HESTER MD, Ot Z79.899 OTHER [facility] (CURRENT) DRUG THERAPY 07/04/2017 NEELIMA HESTER MD, Ot K44.9 DIAPHRAGMATIC HERNIA WITHOUT OBSTRUCTION 07/04/2017 NEELIMA HESTER MD, Ot N26.1 ATROPHY OF KIDNEY (TERMINAL) 07/04/2017 NEELIMA HESTER MD, Ot R91.1 SOLITARY PULMONARY NODULE 07/04/2017 NEELIMA HESTER MD, Ot Z85.048 PRSNL HX OF MALIG NEOPLM OF RECTUM, RECT 07/04/2017 NEELIMA HESTER MD, Ot Z96.0 PRESENCE OF UROGENITAL IMPLANTS 07/21/2017 NEELIMA HESTER MD, Ot K44.9 DIAPHRAGMATIC HERNIA WITHOUT OBSTRUCTION 07/21/2017 NEELIMA HESTER MD, Ot N26.1 ATROPHY OF KIDNEY (TERMINAL) 07/21/2017 NEELIMA HESTER MD, Ot R91.1 SOLITARY PULMONARY NODULE 07/21/2017 NEELIMA HESTER MD, Ot Z85.048 PRSNL HX OF MALIG NEOPLM OF RECTUM, RECT 07/21/2017 NEELIMA HESTER MD, Ot Z96.0 PRESENCE OF UROGENITAL IMPLANTS 07/23/2017 NEELIMA HESTER MD Ot C20 MALIGNANT NEOPLASM OF RECTUM 07/23/2017 NEELIMA HESTER MD, Ot E78.5 HYPERLIPIDEMIA, UNSPECIFIED 07/23/2017 NEELIMA HESTER MD, Ot F70 MILD INTELLECTUAL DISABILITIES 07/23/2017 NEELIMA HESTER MD, Ot I10 ESSENTIAL (PRIMARY) HYPERTENSION 07/23/2017 NEELIMA HESTER MD, Ot N13.30 UNSPECIFIED HYDRONEPHROSIS 07/23/2017 NEELIMA HESTER MD, Ot N13.5 CROSSING VESSEL AND STRICTURE OF URETER 07/23/2017 NEELIMA HESTER MD, Ot N26.1 ATROPHY OF KIDNEY (TERMINAL) 07/23/2017 NEELIMA HESTER MD, Ot N31.9 NEUROMUSCULAR DYSFUNCTION OF BLADDER, UN 07/23/2017 NEELIMA HESTER MD, Ot Z79.899 OTHER PAWN BROKER (CURRENT) DRUG THERAPY 07/23/2017 NEELIMA HESTER MD, Ot Z96.0 PRESENCE OF UROGENITAL IMPLANTS 07/23/2017 NEELIMA HESTER MD, Ot Z98.890 OTHER SPECIFIED POSTPROCEDURAL STATES 09/07/2017 Hiram Sorensen W 272.4 OTHER AND UNSPECIFIED HYPERLIPIDEMIA 09/07/2017 Hiram Sorensen W 376.30 EXOPHTHALMOS, UNSPECIFIED 09/07/2017 Edu, Angelitou W 794.8 NONSPECIFIC ABNORMAL RESULTS OF FUNCTION STUDY OF LIVER 09/07/2017 Edu, Angelitou W E78.5 HYPERLIPIDEMIA, UNSPECIFIED 09/07/2017 Sorensen, Angelitou W H05.20 UNSPECIFIED EXOPHTHALMOS 09/07/2017 Sorensen, Angelitou W R94.5 ABNORMAL RESULTS OF LIVER FUNCTION STUDIES 09/08/2017 dEu, Angelitou W 272.4 OTHER AND UNSPECIFIED HYPERLIPIDEMIA 09/08/2017 Sorensen, BebetoCarlene W 376.30 EXOPHTHALMOS, UNSPECIFIED 09/08/2017 Sorensen, Angelitou W 794.8 NONSPECIFIC ABNORMAL RESULTS OF FUNCTION STUDY OF LIVER 09/08/2017 Edu, Angelitou W E78.5 HYPERLIPIDEMIA, UNSPECIFIED 09/08/2017 Sorensen, Angelitou W H05.20 UNSPECIFIED EXOPHTHALMOS 09/08/2017 Sorensen, Angelitou W R94.5 ABNORMAL RESULTS OF LIVER FUNCTION STUDIES 09/27/2017 NEELIMA HESTER MD, Ot C20 MALIGNANT NEOPLASM OF RECTUM 09/27/2017 NEELIMA HESTER MD, Ot E78.5 HYPERLIPIDEMIA, UNSPECIFIED 09/27/2017 NEELIMA HESTER MD, Ot F70 MILD INTELLECTUAL DISABILITIES 09/27/2017 NEELIMA HESTER MD, Ot I10 ESSENTIAL (PRIMARY) HYPERTENSION 09/27/2017 NEELIMA HESTER MD, Ot N13.30 UNSPECIFIED HYDRONEPHROSIS 09/27/2017 NEELIMA HESTER MD, Ot N13.5 CROSSING VESSEL AND STRICTURE OF URETER 09/27/2017 NEELIMA HESTER MD, Ot N26.1 ATROPHY OF KIDNEY (TERMINAL) 09/27/2017 NEELIMA HESTER MD, Ot N31.9 NEUROMUSCULAR DYSFUNCTION OF BLADDER, UN 09/27/2017 NEELIMA HESTER MD, Ot Z79.899 OTHER [facility] (CURRENT) DRUG THERAPY 09/27/2017 NEELIMA HESTER MD, Ot Z96.0 PRESENCE OF UROGENITAL IMPLANTS 09/27/2017 NEELIMA HESTER MD, Ot Z98.890 OTHER SPECIFIED POSTPROCEDURAL STATES 09/28/2017 NEELIMA HESTER MD, Ot C20 MALIGNANT NEOPLASM OF RECTUM 09/28/2017 NEELIMA HESTER MD, Ot E78.5 HYPERLIPIDEMIA, UNSPECIFIED 09/28/2017 NEELIMA HESTER MD, Ot F70 MILD INTELLECTUAL DISABILITIES 09/28/2017 NEELIMA HESTER MD, Ot I10 ESSENTIAL (PRIMARY) HYPERTENSION 09/28/2017 NEELIMA HESTER MD, Ot N13.30 UNSPECIFIED HYDRONEPHROSIS 09/28/2017 NEELIMA HESTER MD, Ot N13.5 CROSSING VESSEL AND STRICTURE OF URETER 09/28/2017 NEELIMA HESTER MD, Ot N26.1 ATROPHY OF KIDNEY (TERMINAL) 09/28/2017 NEELIMA HESTER MD, Ot N31.9 NEUROMUSCULAR DYSFUNCTION OF BLADDER, UN 09/28/2017 NEELIMA HESTER MD, Ot Z79.899 OTHER PAWN BROKER (CURRENT) DRUG THERAPY 09/28/2017 NEELIMA HESTER MD Ot Z96.0 PRESENCE OF UROGENITAL IMPLANTS 09/28/2017 NEELIMA HESTER MD Ot Z98.890 OTHER SPECIFIED POSTPROCEDURAL STATES 10/05/2017 NEELIMA HESTER MD, Ot C20 MALIGNANT NEOPLASM OF RECTUM 10/05/2017 NEELIMA HESTER MD, Ot E78.5 HYPERLIPIDEMIA, UNSPECIFIED 10/05/2017 NEELIMA HESTER MD, Ot F70 MILD INTELLECTUAL DISABILITIES 10/05/2017 NEELIMA HESTER MD, Ot I10 ESSENTIAL (PRIMARY) HYPERTENSION 10/05/2017 NEELIMA HESTER MD, Ot N13.30 UNSPECIFIED HYDRONEPHROSIS 10/05/2017 NEELIMA HESTER MD, Ot N13.5 CROSSING VESSEL AND STRICTURE OF URETER 10/05/2017 NEELIMA HESTER MD, Ot N26.1 ATROPHY OF KIDNEY (TERMINAL) 10/05/2017 NEELIMA HESTER MD Ot N31.9 NEUROMUSCULAR DYSFUNCTION OF BLADDER, UN 10/05/2017 NEELIMA HESTER MD, Ot Z79.899 OTHER PAWN BROKER (CURRENT) DRUG THERAPY 10/05/2017 NEELIMA HESTER MD Ot Z96.0 PRESENCE OF UROGENITAL IMPLANTS 10/05/2017 NEELIMA HESTER MD Ot Z98.890 OTHER SPECIFIED POSTPROCEDURAL STATES 01/19/2018 NEELIMA HESTER MD, Ot E78.5 HYPERLIPIDEMIA, UNSPECIFIED 01/19/2018 NEELIMA HESTER MD Ot F70 MILD INTELLECTUAL DISABILITIES 01/19/2018 NEELIMA HESTER MD, Ot I10 ESSENTIAL (PRIMARY) HYPERTENSION 01/19/2018 NEELIMA HESTER MD, Ot N13.30 UNSPECIFIED HYDRONEPHROSIS 01/19/2018 NEELIMA HESTER MD, Ot N13.5 CROSSING VESSEL AND STRICTURE OF URETER 01/19/2018 NEELIMA HESTER MD Ot N26.1 ATROPHY OF KIDNEY (TERMINAL) 01/19/2018 NEELIMA HESTER MD, Ot N31.9 NEUROMUSCULAR DYSFUNCTION OF BLADDER, UN 01/19/2018 NEELIMA HESTER MD, Ot Z08 ENCNTR FOR FOLLOW-UP EXAM AFTER TRTMT FO 01/19/2018 NEELIMA HESTER MD, Ot Z79.899 OTHER [facility] (CURRENT) DRUG THERAPY 01/19/2018 NEELIMA HESTER MD, Ot Z85.048 PRSNL HX OF MALIG NEOPLM OF RECTUM, RECT 01/19/2018 NEELIMA HESTER MD, Ot Z92.21 PERSONAL HISTORY OF ANTINEOPLASTIC CHEMO 01/19/2018 NEELIMA HESTER MD, Ot Z92.3 PERSONAL HISTORY OF IRRADIATION 01/19/2018 NEELIMA HESTER MD, Ot Z96.0 PRESENCE OF UROGENITAL IMPLANTS 01/30/2018 NEELIMA HESTER MD, Ot E78.5 HYPERLIPIDEMIA, UNSPECIFIED 01/30/2018 NEELIMA HESTER MD, Ot F70 MILD INTELLECTUAL DISABILITIES 01/30/2018 NEELIMA HESTER MD, Ot I10 ESSENTIAL (PRIMARY) HYPERTENSION 01/30/2018 NEELIMA HESTER MD, Ot N13.30 UNSPECIFIED HYDRONEPHROSIS 01/30/2018 NEELIMA HESTER MD, Ot N13.5 CROSSING VESSEL AND STRICTURE OF URETER 01/30/2018 NEELIMA HESTER MD Ot N26.1 ATROPHY OF KIDNEY (TERMINAL) 01/30/2018 NEELIMA HESTER MD Ot N31.9 NEUROMUSCULAR DYSFUNCTION OF BLADDER, UN 01/30/2018 NEELIMA HESTER MD, Ot Z08 ENCNTR FOR FOLLOW-UP EXAM AFTER TRTMT FO 01/30/2018 NEELIMA HESTER MD, Ot Z79.899 OTHER [facility] (CURRENT) DRUG THERAPY 01/30/2018 NEELIMA HESTER MD, Ot Z85.048 PRSNL HX OF MALIG NEOPLM OF RECTUM, RECT 01/30/2018 NEELIMA HESTER MD, Ot Z92.21 PERSONAL HISTORY OF ANTINEOPLASTIC CHEMO 01/30/2018 NEELIMA HESTER MD, Ot Z92.3 PERSONAL HISTORY OF IRRADIATION 01/30/2018 NEELIMA HESTER MD, Ot Z96.0 PRESENCE OF UROGENITAL IMPLANTS 01/31/2018 LATANYA REHMAN, CELINE [place]l Ot Z01.818 ENCOUNTER FOR OTHER PREPROCEDURAL EXAMIN 02/01/2018 LATANYA REHMAN, CELINE [place]l Ot Z01.818 ENCOUNTER FOR OTHER PREPROCEDURAL EXAMIN 02/01/2018 NEELIMA HESTER MD, Ot E78.5 HYPERLIPIDEMIA, UNSPECIFIED 02/01/2018 NEELIMA HESTER MD, Ot F70 MILD INTELLECTUAL DISABILITIES 02/01/2018 NEELIMA HESTER MD, Ot I10 ESSENTIAL (PRIMARY) HYPERTENSION 02/01/2018 NEELIMA HESTER MD, Ot N13.30 UNSPECIFIED HYDRONEPHROSIS 02/01/2018 NEELIMA HESTER MD, Ot N13.5 CROSSING VESSEL AND STRICTURE OF URETER 02/01/2018 NEELIMA HESTER MD, Ot N26.1 ATROPHY OF KIDNEY (TERMINAL) 02/01/2018 NEELIMA HESTER MD, Ot N31.9 NEUROMUSCULAR DYSFUNCTION OF BLADDER, UN 02/01/2018 NEELIMA HESTER MD, Ot Z08 ENCNTR FOR FOLLOW-UP EXAM AFTER TRTMT FO 02/01/2018 NEELIMA HESTER MD, Ot Z79.899 OTHER [facility] (CURRENT) DRUG THERAPY 02/01/2018 NEELIMA HESTER MD, Ot Z85.048 PRSNL HX OF MALIG NEOPLM OF RECTUM, RECT 02/01/2018 NEELIMA HESTER MD, Ot Z92.21 PERSONAL HISTORY OF ANTINEOPLASTIC CHEMO 02/01/2018 NEELIMA HESTER MD, Ot Z92.3 PERSONAL HISTORY OF IRRADIATION 02/01/2018 NEELIMA HESTER MD, Ot Z96.0 PRESENCE OF UROGENITAL IMPLANTS 02/07/2018 ELSA ALATORRE MD Ot 591 HYDRONEPHROSIS 02/07/2018 ELSA ALATORRE MD Ot 599.60 URINARY OBSTRUCTION, UNSPECIFIED 02/07/2018 ELSA ALATORRE MD Ot 793.5 NOSP (ABN) FINDINGS ON RADIOLOGICAL OT 02/07/2018 BUCK, HILAH S PIN STICKER Ot 154.1 MALIGNANT NEOPL RECTUM 02/07/2018 BUCKJOEL Rider S PIN STICKER Ot 319 UNSPECIFIED INTELLECTUAL DISABILITIES 02/07/2018 BUCKJOEL Rider S PIN STICKER Ot 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 02/07/2018 BUCKJOEL Rider S PIN STICKER Ot 596.54 NEUROGENIC BLADDER, NOT OTHERWISE SPECIF 02/07/2018 BUCK JOEL S PIN STICKER Ot 788.20 RETENTION OF URINE NOS 02/07/2018 BUCK JOEL S PIN STICKER Ot V58.69 OT MED,LT,CURRENT USE 02/07/2018 LATANYA REHMAN, CELINE [place] Ot 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 02/07/2018 LATANYA REHMAN, CELINE [place]l Ot V72.84 EXAM PRE-OPERATIVE NOS 02/07/2018 LATANYA REHMAN, CELINE [place] Ot 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 02/07/2018 LATANYA REHMAN, CELINE [place]l Ot V72.63 PRE-PROCEDURAL LABORATORY EXAMINATION 02/07/2018 LATANYA REHMAN, CELINE [place]l Ot V74.8 SCREEN-BACTERIAL DIS NEC 02/07/2018 LATANYA REHMAN, CELINE [place] Ot 154.1 MALIGNANT NEOPL RECTUM 02/07/2018 LATANYA REHMAN, CELINE [place] Ot V72.84 EXAM PRE-OPERATIVE NOS 02/07/2018 JACK REHMAN, Mira [place] Ot 591 HYDRONEPHROSIS 02/07/2018 JACK REHMAN, Mira [place] Ot 788.20 RETENTION OF URINE NOS 02/07/2018 BUCKJOEL Rider PIN STICKER Ot 154.1 MALIGNANT NEOPL RECTUM 02/07/2018 BUCK JOEL S PIN STICKER Ot 272.4 HYPERLIPIDEMIA NEC/NOS 02/07/2018 CIELO JOEL Rider PIN STICKER Ot 317 MILD INTELLECTUAL DISABILITIES 02/07/2018 BUCKJOEL Rider S PIN STICKER Ot 401.9 HYPERTENSION NOS 02/07/2018 Ot 154.1 MALIGNANT NEOPL RECTUM 02/07/2018 Ot 783.21 LOSS OF WEIGHT 02/07/2018 LATANYA REHMAN, CELINE [place]l Ot V72.84 EXAM PRE-OPERATIVE NOS 02/07/2018 RASTA REHMAN, PIYUSH [place] Ot C20 MALIGNANT NEOPLASM OF RECTUM 02/07/2018 RASTA REHMAN, PIYUSH [place] Ot C20 MALIGNANT NEOPLASM OF RECTUM 02/07/2018 RASTA REHMAN, PIYUSH [place] Ot C20 MALIGNANT NEOPLASM OF RECTUM 02/07/2018 RASTA REHMAN, PIYUSH [place] Ot C20 MALIGNANT NEOPLASM OF RECTUM 02/07/2018 PIYUSH MAGDALENO MD, Ot N13.39 OTHER HYDRONEPHROSIS 02/07/2018 PIYUSH MAGDALENO MD Ot C20 MALIGNANT NEOPLASM OF RECTUM 02/07/2018 PIYUSH MAGDALENO MD, Ot N13.30 UNSPECIFIED HYDRONEPHROSIS 02/07/2018 PIYUSH MAGDALENO MD, Ot N26.1 ATROPHY OF KIDNEY (TERMINAL) 02/07/2018 PIYUSH MAGDALENO MD, Ot Z96.0 PRESENCE OF UROGENITAL IMPLANTS 02/07/2018 PIYUSH MAGDALENO MD, Ot Z98.890 OTHER SPECIFIED POSTPROCEDURAL STATES 02/07/2018 NEELIMA HESTER MD, Ot K44.9 DIAPHRAGMATIC HERNIA WITHOUT OBSTRUCTION 02/07/2018 NEELIMA HESTER MD, Ot N26.1 ATROPHY OF KIDNEY (TERMINAL) 02/07/2018 NEELIMA HESTER MD, Ot R91.1 SOLITARY PULMONARY NODULE 02/07/2018 NEELIMA EHSTER MD, Ot Z85.048 PRSNL HX OF MALIG NEOPLM OF RECTUM, RECT 02/07/2018 NEELIMA HESTER MD, Ot Z96.0 PRESENCE OF UROGENITAL IMPLANTS 02/07/2018 NEELIMA HESTER MD, Ot E78.5 HYPERLIPIDEMIA, UNSPECIFIED 02/07/2018 NEELIMA HESTER MD, Ot F70 MILD INTELLECTUAL DISABILITIES 02/07/2018 NEELIMA HESTER MD, Ot I10 ESSENTIAL (PRIMARY) HYPERTENSION 02/07/2018 NEELIMA HESTER MD, Ot N13.30 UNSPECIFIED HYDRONEPHROSIS 02/07/2018 NEELIMA HESTER MD, Ot N13.5 CROSSING VESSEL AND STRICTURE OF URETER 02/07/2018 NEELIMA HESTER MD, Ot N26.1 ATROPHY OF KIDNEY (TERMINAL) 02/07/2018 NEELIMA HESTER MD, Ot N31.9 NEUROMUSCULAR DYSFUNCTION OF BLADDER, UN 02/07/2018 NEELIMA HESTER MD, Ot Z08 ENCNTR FOR FOLLOW-UP EXAM AFTER TRTMT FO 02/07/2018 NEELIMA HESTER MD, Ot Z79.899 OTHER MCC (CURRENT) DRUG THERAPY 02/07/2018 NEELIMA HESTER MD, Ot Z85.048 PRSNL HX OF MALIG NEOPLM OF RECTUM, RECT 02/07/2018 NEELIMA HESTER MD, Ot Z92.21 PERSONAL HISTORY OF ANTINEOPLASTIC CHEMO 02/07/2018 MIR REHMAN, NEELIMA Ot Z92.3 PERSONAL HISTORY OF IRRADIATION 02/07/2018 NEELIMA HESTER MD Ot Z96.0 PRESENCE OF UROGENITAL IMPLANTS Procedures Code Description Performed By Performed On 46.01 SM BOWEL EXTERIORIZATION 11/01/2013 48.63 ANTERIOR RECT RESECT NEC 11/01/2013 57.81 SUTURE BLADDER LACERAT 11/01/2013 46.51 SM BOWEL STOMA CLOSURE 02/07/2014 Results Test Result Range Complete blood count (CBC) with automated white blood cell (WBC) differential - 12/10/16 14:01 Blood leukocytes automated count (number/volume) 8.4 10*3/uL 4.3-11.0 Blood erythrocytes automated count (number/volume) 4.08 10*6/uL 4.35-5.85 Venous blood hemoglobin measurement (mass/volume) 12.4 g/dL 13.3-17.7 Blood hematocrit (volume fraction) 35 % 40-54 Automated erythrocyte mean corpuscular volume 85 [foz_us] 80-99 Automated erythrocyte mean corpuscular hemoglobin (mass per erythrocyte) 30 pg 25-34 Automated erythrocyte mean corpuscular hemoglobin concentration measurement ( mass/volume) 36 g/dL 32-36 Automated erythrocyte distribution width ratio 13.2 % 10.0-14.5 Automated blood platelet count (count/volume) 95 10*3/uL 130-400 Automated blood platelet mean volume measurement 11.0 [foz_us] 7.4-10.4 Automated blood neutrophils/100 leukocytes 87 % 42-75 Automated blood lymphocytes/100 leukocytes 3 % 12-44 Blood monocytes/100 leukocytes 10 % 0-12 Automated blood eosinophils/100 leukocytes 0 % 0-10 Automated blood basophils/100 leukocytes 0 % 0-10 Blood neutrophils automated count (number/volume) 7.3 10*3 1.8-7.8 Blood lymphocytes automated count (number/volume) 0.3 10*3 1.0-4.0 Blood monocytes automated count (number/volume) 0.9 10*3 0.0-1.0 Automated eosinophil count 0.0 10*3/uL 0.0-0.3 Automated blood basophil count (count/volume) 0.0 10*3/uL 0.0-0.1 Comprehensive metabolic panel - 12/10/16 14:01 Serum or plasma sodium measurement (moles/volume) 128 mmol/L 135-145 Serum or plasma potassium measurement (moles/volume) 2.4 mmol/L 3.6-5.0 Serum or plasma chloride measurement (moles/volume) 91 mmol/L 98-107 Carbon dioxide 20 mmol/L 21-32 Serum or plasma anion gap determination (moles/volume) 17 mmol/L 5-14 Serum or plasma urea nitrogen measurement (mass/volume) 29 mg/dL 7-18 Serum or plasma creatinine measurement (mass/volume) 1.75 mg/dL 0.60-1.30 Serum or plasma urea nitrogen/creatinine mass ratio 17 NRG Serum or plasma creatinine measurement with calculation of estimated glomerular filtration rate 41 NRG Serum or plasma glucose measurement (mass/volume) 171 mg/dL 70-105 Serum or plasma calcium measurement (mass/volume) 8.3 mg/dL 8.5-10.1 Serum or plasma total bilirubin measurement (mass/volume) 1.0 mg/dL 0.1-1.0 Serum or plasma alkaline phosphatase measurement (enzymatic activity/volume) 89 U/L 40-136 Serum or plasma aspartate aminotransferase measurement (enzymatic activity/ volume) 105 U/L 5-34 Serum or plasma alanine aminotransferase measurement (enzymatic activity/volume ) 80 U/L 0-55 Serum or plasma protein measurement (mass/volume) 6.9 g/dL 6.4-8.2 Serum or plasma albumin measurement (mass/volume) 3.5 g/dL 3.2-4.5 Blood manual differential performed detection - 12/10/16 14:01 Blood monocytes/100 leukocytes 5 % NRG Manual blood segmented neutrophils/100 leukocytes 90 % NRG Blood band neutrophils/100 leukocytes 0 % NRG Manual blood lymphocytes/100 leukocytes 5 % NRG Manual eosinophils/100 leukocytes in nose 0 % NRG Manual blood basophils/100 leukocytes 0 % NRG Blood erythrocyte morphology finding identification NORMAL NRG Renal Panel - 12/20/16 17:09 Albumin 3.8 g/dL 3.6-5.1 BUN 13 mg/dL 5-25 Calcium 8.6 mg/dL 8.3-10.4 Chloride 105 mmol/L 95-114 CO2 20 mEq/L 22-33 Creat 1.09 mg/dL 0.50-1.50 eGFR 71 mL/min/1.73m2 >59 Glucose 86 mg/dL 70-110 Phosphorus 2.4 mg/dL 2.5-4.8 Potassium 4.6 mmol/L 3.5-5.3 Sodium 138 mmol/L 134-148 Dilantin - 02/09/17 14:10 Dilantin 11.1 ug/mL 10.0-20.0 Dilantin - 09/07/17 15:59 Dilantin 14.4 ug/mL 10.0-20.0 Encounters ACCT No. Visit Date/Time Discharge Status Pt. Type Provider Facility Loc./Unit Complaint [id number] 01/31/2018 01:22:00 01/31/2018 23:59:59 CLS Preadmit NEELIMA HESTER MD [facility] ONC [id number] 01/31/2018 05:41:00 01/31/2018 14:23:00 DIS Outpatient CELINE PELAEZ MD [facility] PREOP COLONOSCOPY [id number] 01/13/2018 12:53:00 01/30/2018 00:01:00 DIS Outpatient NEELIMA HESTER MD [facility] ONC [id number] 07/08/2017 12:46:00 09/27/2017 00:01:00 DIS Outpatient NEELIMA HESTER MD [facility] ONC [id number] 07/01/2017 12:56:00 07/01/2017 23:59:59 CLS Outpatient NEELIMA HESTER MD [facility] RAD R93.8 ABN CAT SCAN [id number] 01/01/2017 10:29:00 01/15/2017 13:47:00 DIS Outpatient NEELIMA HESTER MD [facility] ONC [id number] 12/25/2016 12:27:00 12/25/2016 23:59:59 CLS Outpatient PIYUSH MAGDALENO MD [facility] RAD RECTAL CA [id number] 12/10/2016 13:24:00 12/10/2016 16:18:00 DIS Emergency JULIA MORALES MD [facility] ER SWEATING,CANNOT URINATE, HAS A STINT [id number] 08/06/2016 14:30:00 09/15/2016 00:01:00 DIS Outpatient PIYUSH MAGDALENO MD [facility] ONC [id number] 06/18/2016 12:00:00 06/18/2016 23:59:59 CLS Outpatient PIYUSH MAGDALENO MD [facility] RAD RECTAL CA [id number] 03/23/2016 15:27:00 06/14/2016 00:01:00 DIS Outpatient PIYUSH MAGDALENO MD [facility] ONC [id number] 03/16/2016 14:12:00 03/16/2016 23:59:59 CLS Outpatient PIYUSH MAGDALENO MD [facility] RAD RECTAL CANCER [id number] 12/23/2015 15:00:00 02/10/2016 14:57:00 DIS Outpatient PIYUSH MAGDALENO MD [facility] ONC [id number] 09/23/2015 14:36:00 12/03/2015 00:01:00 DIS Outpatient PIYUSH MAGDALENO MD [facility] ONC [id number] 09/20/2015 09:35:00 09/20/2015 23:59:59 CLS Outpatient PIYUSH MAGDALENO MD [facility] RAD RECTAL CA [id number] 03/07/2015 08:52:00 03/07/2015 23:59:59 CLS Outpatient PIYUSH MAGDALENO MD [facility] ONC [id number] 02/12/2015 14:13:00 02/12/2015 23:59:59 CLS Outpatient PIYUSH MAGDALENO MD [facility] RAD RECTAL CA [id number] 01/29/2015 14:53:00 01/30/2015 00:01:00 DIS Outpatient PIYUSH MAGDALENO MD [facility] ONC [id number] 10/30/2014 14:53:00 01/28/2015 00:01:00 DIS Outpatient PIYUSH MAGDALENO MD [facility] ONC [id number] 07/24/2014 14:52:00 10/22/2014 00:01:00 DIS Outpatient PIYUSH MAGDALENO MD [facility] ONC [id number] 07/30/2014 09:08:00 07/30/2014 13:00:00 DIS Outpatient CELINE PELAEZ MD [facility] SDC HISTORY OF COLON CANCER [id number] 07/26/2014 06:05:00 07/26/2014 23:59:59 CLS Outpatient CELINE PELAEZ MD [facility] PREOP HISTORY OF COLON CANCER [id number] 05/19/2014 17:58:00 05/23/2014 16:15:00 DIS Inpatient CELINE PELAEZ MD [facility] SURGICAL SMALL BOWEL OBSTRUCTION [id number] 04/27/2014 01:13:00 05/07/2014 15:15:00 DIS Inpatient PIYUSH MAGDALENO MD [facility] 4TH SEPSIS,HYPOTHERMIA [id number] 04/23/2014 08:02:00 04/23/2014 23:59:59 CLS Outpatient PIYUSH MAGDALENO MD [facility] ONC [id number] 03/22/2014 15:30:00 03/22/2014 23:59:59 CLS Outpatient Mira SANTIAGO MD [facility] RAD RETENTION OF URINE [id number] 03/14/2014 12:49:00 03/21/2014 00:01:00 DIS Outpatient PIYUSH MAGDALENO MD [facility] ONC [id number] 03/13/2014 14:21:00 03/13/2014 23:59:59 CLS Outpatient JOEL BUCK [facility] ONC [id number] 02/07/2014 06:08:00 02/10/2014 13:40:00 DIS Inpatient CELINE PELAEZ MD [facility] SURGICAL RECTAL CANCER [id number] 02/05/2014 10:10:00 02/05/2014 23:59:59 CLS Outpatient CELINE PELAEZ MD [facility] PREOP RECTAL CANCER [id number] 01/17/2014 10:18:00 01/17/2014 23:59:59 CLS Outpatient CELINE PELAEZ MD [facility] RAD RECTAL CA [id number] 11/01/2013 07:31:00 11/09/2013 17:30:00 DIS Inpatient CELINE PELAEZ MD [facility] SURGICAL COLON CANCER [id number] 10/16/2013 14:29:00 11/01/2013 00:01:00 DIS Outpatient RASTA REHMAN, PIYUSH Villalta [facility] ONC [id number] 10/30/2013 07:56:00 10/30/2013 23:59:59 CLS Outpatient CELINE PELAEZ MD [facility] PREOP COLON CANCER [id number] 10/20/2013 13:07:00 10/20/2013 16:30:00 DIS Outpatient CELINE PELAEZ MD [facility] SDC HX COLON CANCER [id number] 10/19/2013 12:12:00 10/19/2013 23:59:59 CLS Outpatient CELINE PELAEZ MD [facility] PREOP HX COLON CANCER [id number] 10/19/2013 14:41:00 10/19/2013 16:29:00 DIS Outpatient CELINE PELAEZ MD [facility] WOUNDCARE COLON CANCER [id number] 08/07/2013 14:35:00 08/07/2013 23:59:59 CLS Outpatient JOEL BUCK PIN [employer]ER [facility] ONC [id number] 07/07/2013 08:35:00 07/07/2013 23:59:59 CLS Outpatient ELSA ALATORRE MD [facility] RAD OBSTRUCTIVE UROPATHY, BILAT HYDRONEPHROSIS [id number] 11/23/2012 15:30:00 11/23/2012 23:59:59 CLS Outpatient [id number] 02/07/2018 07:02:00 ACT Outpatient CELINE PELAEZ MD [facility] ENDO SCREENING/HX RECTAL CANCER [id number] 07/27/2014 14:04:00 Document Registration [id number] 10/05/2017 11:00:00 10/05/2017 23:59:59 CLS [facility] [id number] 09/07/2017 15:56:00 09/07/2017 23:59:00 DIS Outpatient Hiram Sorensen [id number] 09/07/2017 13:30:00 09/07/2017 23:59:00 DIS Outpatient Hiram Sorensen [id number] 02/09/2017 17:32:00 02/09/2017 23:59:00 DIS Outpatient Tereza Salcedo [id number] 12/20/2016 17:06:00 12/20/2016 23:59:00 DIS Outpatient Toy Mayes
[2018-02-07] MEDS ORDERED: NS IV 500 ML 500 ML ONE (07:20)
[2018-02-07] MEDS ORDERED: NS IV 500 ML 500 ML IV PRN (07:29)
[2018-02-07] MEDS ORDERED: MIDAZOLAM 2 MG/2 ML (VERSED) VIAL IVP ONE (07:30)
[2018-02-07] MEDS ORDERED: fentaNYL INJECTION 100 MCG/2 ML AMP IVP ONE (07:30)
[2018-02-07 07:34] VITALS: BP 141/88
[2018-02-07] MEDS ORDERED: MIDAZOLAM 2 MG/2 ML (VERSED) VIAL ONE ×3 (07:43→07:44)
[2018-02-07] MEDS ORDERED: fentaNYL INJECTION 100 MCG/2 ML AMP ONE (07:44)
--- NOTE | 2018-02-07 09:04 | Endo Procedure Record ---
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 He came in for surveillance colonoscopy. Informed consent was obtained after reviewing the procedure in detail. Description of procedure: He was placed in left lateral decubitus position and his vital signs were monitored. Conscious sedation was achieved using Versed and fentanyl. Digital rectal examination was unremarkable. The colonoscope was then introduced into the rectum and advanced past the anastomosis, all the way up to the cecum. The quality of bowel preparation was rather sub-optimal. I was however able to suction the liquid fecal material and complete the examination. The scope was then withdrawn slowly and the mucosa examined in a systematic fashion. Findings: Very few diverticula along the descending colon. He tolerated the procedure well and was taken back to the nursing area in a stable condition. Impression: Previous rectal carcinoma. No polyps. Recommend surveillance colonoscopy in 2 years. Copy Copies To 1: YG ADAMES MD Copies To 2: NEELIMA HESTER MD, XAVIER M MD Feb 07, 2018 09:04
[2018-02-07 09:05] VITALS: BP 122/59
--- NOTE | 2018-02-07 09:07 | History & Physicial ---
History of Present Illness History of Present Illness Reason for visit/HPI to undergo surveillance colonoscopy. History of distal rectal carcinoma Date of Admission 02/07/18 Date Seen by a Provider: Feb 07, 2018 Time Seen by a Provider: 08:10 I consulted on this patient on 02/07/18 09:04 Attending Physician Celine Pelaez MD Admitting Physician Hiram Sorensen MD Consult Allergies and Home Medications Allergies Coded Allergies: No Known Drug Allergies (Unverified , 07/07/13) Home Medications Alprazolam 0.5 Mg Tablet, 0.5 MG PO TID, (Reported) Atenolol 25 Mg Tablet, 25 MG PO DAILY, (Reported) Atorvastatin Calcium 40 Mg Tablet, 40 MG PO HS, (Reported) Hydrochlorothiazide 25 Mg Tablet, 25 MG PO Q48H, (Reported) Phenytoin Sodium Extended 100 Mg Capsule, 300 MG PO HS, (Reported) TAKE 3 (100MG) TABS Patient Home Medication List Home Medication List Reviewed: Yes Past Tpfntxt-Pavmzt-Opgvxr Hx Patient Social History Marrital Status: single Alcohol Use: Denies Use Recreational Drug Use: No Smoking Status: Never a Smoker Recent Foreign Travel: No Contact w/other who traveled: No Recent Hopitalizations: No Immunizations Up To Date Tetanus Booster (TDap): Unknown Pediatric: No Date of Pneumonia Vaccine: Feb 09, 2014 Date of Influenza Vaccine: Feb 09, 2014 Seasonal Allergies Seasonal Allergies: No Surgeries Yes (KIDNEY STENTS, BOWEL RESECTION) Bowel Surgery Respiratory No Cardiovascular Yes High Cholesterol, Hypertension Neurological Yes (NO SEIZURE FOR 10 YRS) Seizure Disorder Reproductive System Hx Reproductive Disorders: No Gastrointestinal Yes (COLON CANCER) Musculoskeletal No Endocrine History of Endocrine Disorders: No Cancer Yes Colon Type of Treatment: Chemotherapy, Radiation, Surgical Intervention Psychosocial History of Psychiatric Problem: No Integumentary History of Skin or Integumenta: No Blood Transfusions History of Blood Disorders: No Family Medical History Family Hx: Cancer 19 FATHER 19 MOTHER (UTERINE) Cancer of colon 19 FATHER Family history: Arthritis 19 FATHER 19 MOTHER History of - respiratory disease 19 MOTHER (COPD) Myocardial infarction 19 FATHER 19 MOTHER No Family History of: Abdominal aortic aneurysm Congenital heart disease Family history: Alzheimer's disease Family history: Asthma Family history: Breast disease Family history: Cardiovascular disease Family history: Diabetes mellitus Family history: Gastrointestinal disease Family history: Thyroid disorder Hereditary disease Kidney disease Prostate cancer Psychotic disorder Seizure disorder Stroke Review of Systems Constitutional: no symptoms reported EENTM: no symptoms reported Respiratory: no symptoms reported Cardiovascular: no symptoms reported Gastrointestinal: no symptoms reported Genitourinary: no symptoms reported Musculoskeletal: no symptoms reported Skin: no symptoms reported Psychiatric/Neurological: Anxiety Physical Exam Vital Signs Vital Signs - First Documented 02/07/18 07:34 Temp 99.3 Pulse 98 Resp 20 B/P (MAP) 141/88 (105) Pulse Ox 98 O2 Delivery Room Air Capillary Refill : Height, Weight, BMI Height: 5'9.00" Weight: 178lbs. 0.0oz. [id number]; 26.3 BMI Method:Stated General Appearance: No Apparent Distress Neck: Normal Inspection Respiratory: Lungs Clear Cardiovascular: Regular Rate, Rhythm Gastrointestinal: Non Tender, Soft Rectal: Deferred Neurologic/Psychiatric: Alert, Oriented x3 Skin: Warm/Dry Comments gentleman with a previous history of distal rectal carcinoma. Surveillance colonoscopy. Assessment/Plan Assessment and Plan gentleman with a previous history of rectal carcinoma. For surveillance colonoscopy Admission Diagnosis Admission Status: Other (Outpt Proc) CELINE PELAEZ MD Feb 07, 2018 09:07
--- NOTE | 2018-02-07 09:08 | Discharge Inst-Simple/Standard ---
Discharge Inst-Standard Discharge Medications New, Converted or Re-Newed RX: Other Patient Instructions/Follow Up Plan of Care/Instructions/FU: repeat colonoscopy in 2 years Activity as Tolerated: Yes Discharge Diet: No Restrictions CELINE PELAEZ MD Feb 07, 2018 09:08
--- NOTE | 2018-02-07 09:11 | Conscious Sedation/ASA ---
Conscious Sedation Pre-Proced Time 08:15 ASA Score 2 For ASA 3 and 4: Consider anesthesia and medical clearance. Also, for patients with a history of failed moderate sedation consider anesthesia. Airway Lungs Heart ASA score ASA 1: a normal healthy patient ASA 2: a patient with a mild systemic disease (mid diabetes, controlled hypertension, obesity ASA 3: a patient with a severe systemic disease that limits activity (angina , COPD, prior Myocardial infarction) ASA 4: a patient with an incapacitating disease that is a constant threat to life (CHF, renal failure) ASA 5: a moribund patient not expected to survive 24 hrs. (ruptured aneurysm) ASA 6: a declared brain patient whose organs are being harvested. For emergent operations, add the letter E after the classification Mallampati Classification Grade 1 Sedation Plan Discussed options with patient/fam The patient is an appropriate candidate to undergo the planned procedure, sedation, and anesthesia. The patient immediately re-assessed prior to indication. CELINE PELAEZ MD Feb 07, 2018 09:11
[2018-02-07 09:35] VITALS: BP 134/80
[2018-02-07 09:55] VITALS: BP 134/80
== END 2018-02-07 09:55 | disposition home or self-care (01) ==
LOC: ENDO 07:02
PROVIDERS: ATTEND Surgery
DX: Z12.11 Encounter for screening for malignant neoplasm of colon (principal); K57.30 Diverticulosis of large intestine without perforation or abscess without bleeding; Z85.048 Personal history of other malignant neoplasm of rectum, rectosigmoid junction, and anus; I10 Essential (primary) hypertension; E78.00 Pure hypercholesterolemia, unspecified; G40.909 Epilepsy, unspecified, not intractable, without status epilepticus; Z92.21 Personal history of antineoplastic chemotherapy; Z92.3 Personal history of irradiation; Z79.899 Other long term (current) drug therapy
CPT/HCPCS: 36415; 82378

== ENCOUNTER → 2018-02-07 | Outpatient (CLI) | payer MEDICARE ==
[~2018-02-07] MED LIST changes: +ALPR0.5T7 PO; +ATEN25TA PO; +ATOR40TA70 PO; +PHEN100C11 PO
== END ==
LOC: LAB 09:26
PROVIDERS: ATTEND Internal Medicine Hematology & Oncology
DX: C20 Malignant neoplasm of rectum (principal); N13.39 Other hydronephrosis; F71 Moderate intellectual disabilities

== ENCOUNTER → 2018-07-21 | Outpatient (CLI) | payer MEDICARE ==
[2018-07-21 15:54] LABS: BASOPHILS % (AUTO) 0 % (0-10); EOSINOPHILS # (AUTO) 0.1 10^3/uL (0.0-0.3); EOSINOPHILS % (AUTO) 1 % (0-10); HEMATOCRIT 42 % (40-54); HEMOGLOBIN 14.5 G/DL (13.3-17.7); LYMPHOCYTES % (AUTO) 16 % (12-44); MEAN CORPUSCULAR HEMOGLOBIN 31 PG (25-34); MEAN CORPUSCULAR HGB CONC 34 G/DL (32-36); MEAN CORPUSCULAR VOLUME 90 FL (80-99); MEAN PLATELET VOLUME 11.2 FL (7.4-10.4); MONOCYTES # (AUTO) 0.5 X 10^3 (0.0-1.0); MONOCYTES % (AUTO) 9 % (0-12); NEUTROPHILS # (AUTO) 4.7 X 10^3 (1.8-7.8); NEUTROPHILS % (AUTO) 74 % (42-75); PLATELET COUNT 155 10^3/uL (130-400); WHITE BLOOD COUNT 6.3 10^3/uL (4.3-11.0)
[2018-07-21 16:28] LABS: ALBUMIN 4.4 GM/DL (3.2-4.5); BILIRUBIN,TOTAL 0.3 MG/DL (0.1-1.0); CALCIUM 9.7 MG/DL (8.5-10.1); CREATININE SERUM 1.33 MG/DL (0.60-1.30); TOTAL PROTEIN 7.5 GM/DL (6.4-8.2)
== END ==
LOC: EDSTATUS 01-31 12:41 → ONC 07-14 12:44
PROVIDERS: ATTEND Internal Medicine Hematology & Oncology
DX: C20 Malignant neoplasm of rectum (principal)
CPT/HCPCS: 36415; 80053; 82378; 85025; 99213

== ENCOUNTER 2019-01-19 14:44 | Outpatient (RCR) | payer MEDICARE | END 2019-04-12 | disposition home or self-care (01) | LOC: ONC 14:44 | PROVIDERS: ATTEND Internal Medicine Hematology & Oncology | DX: C20 Malignant neoplasm of rectum (principal) | CPT/HCPCS: 99213 ==

== ENCOUNTER 2019-07-06 14:50 | Outpatient (RCR) | payer MEDICARE ==
[2019-06-29 13:52] LABS: BASOPHILS % (AUTO) 0 % (0-10); EOSINOPHILS # (AUTO) 0.1 10^3/uL (0.0-0.3); EOSINOPHILS % (AUTO) 1 % (0-10); HEMATOCRIT 42 % (40-54); HEMOGLOBIN 13.8 G/DL (13.3-17.7); LYMPHOCYTES # (AUTO) 2.1 X 10^3 (1.0-4.0); LYMPHOCYTES % (AUTO) 25 % (12-44); MEAN CORPUSCULAR HEMOGLOBIN 29 PG (25-34); MEAN CORPUSCULAR HGB CONC 33 G/DL (32-36); MEAN CORPUSCULAR VOLUME 90 FL (80-99); MEAN PLATELET VOLUME 11.1 FL (7.4-10.4); MONOCYTES # (AUTO) 0.9 X 10^3 (0.0-1.0); MONOCYTES % (AUTO) 11 % (0-12); NEUTROPHILS # (AUTO) 5.2 X 10^3 (1.8-7.8); NEUTROPHILS % (AUTO) 63 % (42-75); PLATELET COUNT 176 10^3/uL (130-400); RED CELL DISTRIBUTION WIDTH 14.5 % (10.0-14.5); WHITE BLOOD COUNT 8.2 10^3/uL (4.3-11.0)
[2019-06-29 14:12] LABS: ALANINE AMINOTRANSFERASE 19 U/L (0-55); ALBUMIN 4.3 GM/DL (3.2-4.5); ALKALINE PHOSPHATASE 165 U/L (40-136); BILIRUBIN,TOTAL 0.3 MG/DL (0.1-1.0); BUN/CREATININE RATIO 9; CALCIUM 9.4 MG/DL (8.5-10.1); CARBON DIOXIDE 24 MMOL/L (21-32); CHLORIDE 103 MMOL/L (98-107); CREATININE SERUM 1.21 MG/DL (0.60-1.30); GFR ESTIMATED > 60; GLUCOSE 85 MG/DL (70-105); POTASSIUM 4.6 MMOL/L (3.6-5.0); SODIUM 137 MMOL/L (135-145); TOTAL PROTEIN 7.6 GM/DL (6.4-8.2)
== END 2019-07-25 13:15 | disposition home or self-care (01) ==
LOC: ONC 14:50
PROVIDERS: ATTEND Internal Medicine Hematology & Oncology
DX: C20 Malignant neoplasm of rectum (principal)
CPT/HCPCS: 80053; 82378; 85025; 99213

== ENCOUNTER → 2019-07-06 | Outpatient (CLI) | payer MEDICARE ==
[2019-07-06 15:08] LABS: BUN/CREATININE RATIO 8; CALCIUM 9.7 MG/DL (8.5-10.1); CARBON DIOXIDE 26 MMOL/L (21-32); CHLORIDE 101 MMOL/L (98-107); CREATININE SERUM 1.17 MG/DL (0.60-1.30); GFR ESTIMATED > 60; GLUCOSE 79 MG/DL (70-105); POTASSIUM 4.3 MMOL/L (3.6-5.0); SODIUM 139 MMOL/L (135-145)
== END ==
LOC: LAB 14:18
PROVIDERS: ATTEND Specialist
DX: N13.30 Unspecified hydronephrosis (principal)
CPT/HCPCS: 36415; 80048

== ENCOUNTER 2019-07-27 05:33 | Outpatient (CLI) | payer MEDICARE ==
[~2019-07-27] VITALS: Ht 170.2 cm; Wt 74.1 kg
== END 2019-07-27 10:18 | disposition home or self-care (01) ==
LOC: PREOP 05:33
PROVIDERS: ATTEND Surgery
DX: Z01.818 Encounter for other preprocedural examination (principal)

== ENCOUNTER 2019-07-31 07:57 | Day surgery (SDC) | payer MEDICARE ==
[~2019-07-31] VITALS: Ht 170.2 cm; Wt 74.1 kg
[2019-07-31] VITALS (9 sets, daily range): BP systolic 84–127; BP diastolic 50–82
--- OUTSIDE RECORDS SUMMARY | 2019-07-31 08:03 | XMS REPORT | Continuity of Care Document ---
Author Organization Unknown Address Unknown Phone Unavailable Allergies Active Description Code Type Severity Reaction Onset Reported/Identified Relationship to Patient Clinical Status Yes No Known Drug Allergies [id number] Drug Allergy Unknown N/A 07/07/2013 Medications There is no data. Problems Date Dx Coded Attending Type Code Diagnosis Diagnosed By 04/01/1314 MIR REHMAN, NEELIMA Gamez C20 MALIGNANT NEOPLASM OF RECTUM 04/01/1456 RASTA REHMAN, PIYUSH Villalta Ot C20 MALIGNANT NEOPLASM OF RECTUM 04/01/1456 PIYUSH MAGDALENO MD Ot E78.5 HYPERLIPIDEMIA, UNSPECIFIED 04/01/1456 PIYUSH MAGDALENO [...] MAGNESIUM METABOLISM 11/09/2013 CELINE PELAEZ MD Ot 31 7 MILD INTELLECTUAL DISABILITIES 11/09/2013 CELINE PELAEZ MD [...] [place] Ot 272.4 03/27/2014 RASTA REHMAN, PIYUSH Villalta Ot 317 03/27/2014 RASTA REHMAN, PIYUSH Villalta Ot 401.9 03/27/2014 RASTA REHMAN, PIYUSH Villalta Ot 593.3 03/27/2014 PIYUSH MAGDALENO MD Ot 596.54 03/27/2014 PIYUSH MAGDALENO MD Ot 788.20 03/27/2014 PIYUSH MAGDALENO MD Ot 154.1 03/27/2014 PIYUSH MAGDALENO MD Ot 272.4 03/27/2014 PIYUSH MAGDALENO MD Ot 317 03/27/2014 PIYUSH MAGDALENO MD Ot 401.9 03/27/2014 PIYUSH MAGDALENO MD Ot 593.3 03/27/2014 PIYUSH MAGDALENO MD Ot 596.54 03/27/2014 PIYUSH MAGDALENO MD Ot 788.20 04/04/2014 PIYUSH MAGDALENO MD Ot 154.1 04/04/2014 PIYUSH MAGDALENO MD Ot 272.4 04/04/2014 PIYUSH MAGDALENO MD Ot 317 04/04/2014 PIYUSH MAGDALENO MD Ot 401.9 04/04/2014 PIYUSH MAGDALENO MD Ot 593.3 04/04/2014 PIYUSH MAGDALENO MD Ot 596.54 04/04/2014 PIYUSH MAGDALENO MD Ot 788.20 04/05/2014 PIYUSH MAGDALENO MD Ot 154.1 04/05/2014 PIYUSH MAGDALENO MD Ot 272.4 04/05/2014 PIYUSH MAGDALENO MD Ot 317 04/05/2014 RASTA REHMAN, PIYUSH Villalta Ot 401.9 04/05/2014 PIYUSH MAGDALENO MD Ot 593.3 04/05/2014 PIYUSH MAGDALENO MD Ot 596.54 04/05/2014 PIYUSH MAGDALENO MD Ot 788.20 04/06/2014 JOEL BUCK RESILIENT TILE INSTALLER Ot 154.1 04/06/2014 OJEL BUCK RESILIENT TILE INSTALLER Ot 272.4 04/06/2014 JOEL BUCK RESILIENT TILE INSTALLER Ot 3 17 04/06/2014 JOEL BUCK RESILIENT TILE INSTALLER Ot 401.9 04/17/2014 JACK REHMAN, Mira KAPADIA Ot 591 04/17/2014 JACK REHMAN, Mira KAPADIA Ot 788.2 0 04/23/2014 RASTA REHMAN, PIYUSH Villalta Ot 154.1 [...] JACK REHMAN, Mira KAPADIA Ot 591 04/23/2014 Mira SANTIAGO MD Ot 788.2 0 04/27/2014 CELI REHMAN, ELSA Hannah Ot 591 04/27/2014 CELI REHMAN, ELSA A Ot 599.6 0 04/27/2014 CELI REHMAN, ELSA A Ot 793.5 04/27/2014 JOEL BUCK RESILIENT TILE INSTALLER Ot 154.1 04/27/2014 JOEL BUCK RESILIENT TILE INSTALLER Ot 3 19 04/27/2014 JOEL BUCK RESILIENT TILE INSTALLER Ot 593.3 04/27/2014 JOEL BUCK S RESILIENT TILE INSTALLER Ot 596.54 04/27/2014 JOEL BUCK S RESILIENT TILE INSTALLER Ot 788.20 04/27/2014 JOEL BUCK RESILIENT TILE INSTALLER Ot V58.69 04/27/2014 LATANYA REHMAN, CELINE Chilel Ot 153.9 04/27/2014 LATANYA REHMAN, CELINE Chilel Ot V72.84 04/27/2014 LATANYA REHMAN, CELINE Chilel Ot 153.9 04/27/2014 LATANYA REHMAN, CELINE M Ot V72.63 04/27/2014 LATANYA REHMAN, CELINE Chilel Ot V74.8 04/27/2014 LATANYA REHMAN, CELINE Chilel Ot 154.1 04/27/2014 LATANYA REHMAN, CELINE M Ot V72.84 04/27/2014 JACK REHMAN, Mira KAPADIA Ot 591 04/27/2014 Mira SANTIAGO MD Ot 788.2 0 04/27/2014 JOEL BUCK RESILIENT TILE INSTALLER Ot 154.1 04/27/2014 BUCKJOEL Rider RESILIENT TILE INSTALLER Ot 272.4 04/27/2014 BUCKJOEL Rider RESILIENT TILE INSTALLER Ot 3 17 04/27/2014 BUCKJOEL Rider RESILIENT TILE INSTALLER Ot 401.9 04/27/2014 RASTA REHMAN, PIYUSH K Ot 154.1 04/27/2014 RASTA REHMAN, PIYUSH K Ot 272.4 04/27/2014 RASTA REHMAN, PIYUSH Ambar Ot 317 04/27/2014 RASTA REHMAN, PIYUSH K Ot 401.9 04/27/2014 RASTA REHMAN, PIYUSH K Ot 593.3 04/27/2014 RASTA REHMAN, PIYUSH K Ot 596.54 04/27/2014 RASTA REHMAN, PIYUSH K Ot 788.20 04/27/2014 RASTA REHMAN, PIYUSH K Ot V58.11 04/27/2014 RASTA REHMAN, PIYUSH K Ot 038.9 04/27/2014 RASTA REHMAN, PIYUSH Ambar Ot 154.1 04/27/2014 RASTA REHMAN, PIYUSH Ambar Ot 272.0 04/27/2014 RASTA REHMAN, PIYUSH Ambar Ot 345.90 04/27/2014 RASTA REHMAN, PIYUSH K Ot 401.9 04/27/2014 RASTA REHMAN, PIYUSH K Ot 780.65 04/27/2014 RASTA REHMAN, PIYUSH K Ot 995.91 04/27/2014 RASTA REHMAN, PIYUSH K Ot V10.51 04/27/2014 RASTA REHMAN, PIYUSH K Ot V45.79 04/27/2014 RASTA REHMAN, PIYUSH K Ot V58.69 04/28/2014 RASTA REHMAN, PIYUSH K Ot 038.9 04/28/2014 RASTA REHMAN, PIYUSH K Ot 154.1 04/28/2014 RASTA REHMAN, PIYUSH K Ot 272.0 04/28/2014 RASTA REHMAN, PIYUSH K Ot 345.90 04/28/2014 RASTA REHMAN, PIYUSH K Ot 401.9 04/28/2014 RASTA REHMAN, PIYUSH K Ot 780.65 04/28/2014 RASTA REHMAN, PIYUSH K Ot 995.91 04/28/2014 RASTA REHMAN, PIYUSH K Ot V10.51 04/28/2014 RASTA REHMAN, PIYUSH K Ot V45.79 04/28/2014 RASTA REHMAN, PIYUSH K Ot V58.69 04/28/2014 RASTA REHMAN, PIYUSH K Ot 038.9 04/28/2014 RASTA REHMAN, PIYUSH K Ot 154.1 04/28/2014 RASTA REHMAN, PIYUSH K Ot 272.0 04/28/2014 RASTA REHMAN, PIYUSH K Ot 345.90 04/28/2014 RASTA REHMAN, PIYUSH Villalta [...] REHMAN, PIYUSH Villalta Ot 345.90 04/29/2014 RASTA RHEMAN, PIYUSH Villalta Ot 401.9 04/29/2014 RASTA REHMAN, PIYUSH Villalta Ot 780.65 04/29/2014 RASTA REHMAN, PIYUSH Villalta Ot 995.91 04/29/2014 RASTA REHMAN, PIYUSH Villalta Ot V10.51 04/29/2014 RASTA REHMAN, PIYUSH Villalta Ot V45.79 04/29/2014 PIYUSH MAGDALENO MD Ot V58.69 05/07/2014 RASTA REHMAN, PIYUSH Villalta Ot 038.9 SEPTICEMIA NOS 05/07/2014 RASTA REHMAN, PIYUSH Villalta Ot 154.1 MALIGNANT NEOPL RECTUM 05/07/2014 PIYUSH [...] PURE HYPERCHOLESTEROLEM 05/23/2014 CELINE PELAEZ MD Ot 31 9 UNSPECIFIED INTELLECTUAL DISABILITIES 05/23/2014 CELINE PELAEZ MD Ot 345.90 EPILEPSY UNSPEC W/O MENTION INTRACTABLE 05/23/2014 CELINE PELAEZ MD Ot 401.9 HYPERTENSION NOS 05/23/2014 CELINE PELAEZ MD Ot 560.9 INTESTINAL OBSTRUCT NOS 05/23/2014 CELINE PELAEZ MD Ot 564.00 UNSPEC CONSTIPATION 05/23/2014 LATANYA REHMNA, CELINE Chilel Ot V16.0 FAMILY HX-GI MALIGNANCY [...] [place] Ot 272.4 HYPERLIPIDEMIA NEC/NOS 07/03/2014 RASTA REHMAN, PIYUSH Villalta Ot 317 MILD [...] 07/24/2014 PIYUSH MAGDALENO MD Ot V58.11 07/26/2014 PIYUSH MAGDALENO MD Ot 154.1 07/26/2014 RASTA REHMAN, [...] Villalta Ot 154.1 09/21/2014 RASTA REHMAN, PIYUSH Vlilalta Ot 272.4 09/21/2014 RASTA REHMAN, PIYUSH Villalta [...] PIYUSH Ambar Ot 272.4 10/30/2014 RASTA REHMAN, PIYUSH Ambar Ot 317 10/30/2014 RASTA REHMAN, PIYUSH [...] RASTA REHMAN, PIYUSH K Ot 401.9 12/05/2014 RATSA REHMAN, PIYUSH K Ot 593.3 12/05/2014 RASTA REHMAN, PIYUSH K Ot 596.54 12/05/2014 PIYUSH MAGDALENO MD Ot 788.20 01/28/2015 PIYUSH MAGDALENO MD Ot 154.1 MALIGNANT NEOPL RECTUM 01/28/2015 PIYUSH MAGDALENO MD Ot 272.4 HYPERLIPIDEMIA NEC/NOS 01/28/2015 PIYUHS MAGDALENO MD Ot 317 MILD INTELLECTUAL DISABILITIES [...] 591 02/12/2015 CELI MD, ELSA A Ot 599.6 0 02/12/2015 CELI REHMAN, ELSA A Ot 793.5 02/12/2015 JOEL BUCK RESILIENT TILE INSTALLER Ot 154.1 02/12/2015 JOEL BUCK RESILIENT TILE INSTALLER Ot 3 19 02/12/2015 JOEL BUCK S RESILIENT TILE INSTALLER Ot 593.3 02/12/2015 JOEL BUCK S RESILIENT TILE INSTALLER Ot 596.54 02/12/2015 JOEL BUCK S RESILIENT TILE INSTALLER Ot 788.20 02/12/2015 JOEL BUCK S RESILIENT TILE INSTALLER Ot V58.69 02/12/2015 LATANYA REHMAN, CELINE M [...] 591 02/12/2015 JACK REHMAN, Mira KAPADIA Ot 788.2 0 02/12/2015 BUCKJOEL Rider RESILIENT TILE INSTALLER Ot 154.1 02/12/2015 BUCKJOEL Rider RESILIENT TILE INSTALLER Ot 272.4 02/12/2015 BUCKJOEL Rider RESILIENT TILE INSTALLER Ot 3 17 02/12/2015 BUCKJOEL Rider RESILIENT TILE INSTALLER Ot 401.9 02/12/2015 Ot 154.1 02/12/2015 Ot [...] Villalta Ot 154.1 02/28/2015 RASTA REHMAN, PIYUSH Villalta Ot 272.4 02/28/2015 RASTA REHMAN, PIYUSH K Ot 317 02/28/2015 RASTA REHMAN, PIYUSH K Ot 401.9 02/28/2015 RASTA REHMAN, PIYUSH K Ot 593.3 02/28/2015 RASTA REHMAN, PIYUSH K Ot 596.54 02/28/2015 RASTA REHMAN, PIYUSH K Ot 788.20 03/05/2015 RASTA REHMAN, PIYUSH K Ot C20 03/15/2015 RASTA REHMAN, PIYUSH K Ot C20 04/16/2015 RASTA REHMAN, PIYUSH K Ot 154.1 04/16/2015 RASTA REHMAN, PIYUSH K Ot 272.4 04/16/2015 RASTA REHMAN, PIYUSH K Ot 317 04/16/2015 RASTA REHMAN, PIYUSH K Ot 401.9 04/16/2015 RASTA REHMAN, PIYUSH K Ot 593.3 04/16/2015 RASTA REHMAN, PIYUSH K Ot 596.54 04/16/2015 RASTA REHMAN, PIYUSH K Ot 788.20 05/07/2015 RASTA REHMAN, PIYUSH K Ot C20 05/07/2015 RASTA REHMAN, PIYUSH Villalta Ot E78.5 05/07/2015 RASTA REHMAN, PIYUSH Ambar Ot F70 05/07/2015 RASTA REHMAN, PIYUSH K Ot I10 05/07/2015 RASTA REHMAN, PIYUSH Ambar Ot N13.5 05/07/2015 RASTA REHMAN, PIYUSH Villalta Ot N31.9 05/13/2015 RASTA REHMAN, PIYUSH K Ot C20 05/13/2015 RASTA REHMAN, PIYUSH Villalta Ot E78.5 05/13/2015 RASTA REHMAN, PIYUSH Villalta Ot F70 05/13/2015 RASTA REHMAN, PIYUSH K Ot I10 05/13/2015 RASTA REHMAN, PIYUSH Villalta Ot N13.5 05/13/2015 RASTA REHMAN, PIYUSH K Ot N31.9 06/05/2015 RASTA REHMAN, PIYUSH K Ot C20 MALIGNANT NEOPLASM OF RECTUM 06/05/2015 RASTA REHMAN, PIYUSH Villalta Ot E78.5 HYPERLIPIDEMIA, UNSPECIFIED 06/05/2015 RASTA REHMAN, PIYUSH K Ot F70 MILD INTELLECTUAL DISABILITIES 06/05/2015 RASTA REHMAN, PIYUSH K Ot I10 ESSENTIAL (PRIMARY) HYPERTENSION 06/05/2015 RASTA REHMAN, PIYUSH Villalta Ot N13.5 CROSSING VESSEL AND STRICTURE OF URETER 06/05/2015 RASTA REHMAN, PIYUSH K Ot N31.9 NEUROMUSCULAR DYSFUNCTION OF BLADDER, UN 08/29/2015 RASTA REHMAN, PIYUSH K Ot C20 MALIGNANT NEOPLASM OF RECTUM 08/29/2015 PIYUSH MAGDALENO MD, Ot E78.5 HYPERLIPIDEMIA, UNSPECIFIED 08/29/2015 PIYUSH MAGDALENO [...] MD, Ot E78.5 HYPERLIPIDEMIA, UNSPECIFIED 09/03/2015 PIYUSH MAGDALENO MD Ot F70 MILD INTELLECTUAL DISABILITIES 09/03/2015 PIYUSH MAGDALENO MD Ot I10 ESSENTIAL (PRIMARY) HYPERTENSION 09/03/2015 PIYUSH MAGDALENO MD, Ot N13.5 CROSSING VESSEL AND STRICTURE OF URETER 09/03/2015 PIYUSH MAGDALENO MD, Ot N31.9 NEUROMUSCULAR DYSFUNCTION OF BLADDER, UN 09/05/2015 PIYUSH MAGDALENO MD, Ot C20 MALIGNANT NEOPLASM OF RECTUM 09/05/2015 PIYUSH MAGDALENO MD, Ot E78.5 HYPERLIPIDEMIA, UNSPECIFIED 09/05/2015 PIYUSH MAGDALENO MD Ot F70 MILD INTELLECTUAL DISABILITIES 09/05/2015 PIYUSH [...] F70 MILD INTELLECTUAL DISABILITIES 10/26/2015 PIYUSH MAGDALENO MD Ot I10 ESSENTIAL (PRIMARY) HYPERTENSION 10/26/2015 PIYUSH MAGDALENO MD, Ot N13.5 CROSSING VESSEL AND STRICTURE OF URETER 10/26/2015 PIYUSH MAGDALENO MD Ot N31.9 NEUROMUSCULAR DYSFUNCTION OF BLADDER, UN 10/29/2015 PIYUSH MAGDALENO MD, Ot C20 MALIGNANT NEOPLASM OF RECTUM 10/29/2015 RASTA MD, PIYUSH K Ot E78.5 HYPERLIPIDEMIA, UNSPECIFIED 10/29/2015 PIYUSH MAGDALENO [...] F70 MILD INTELLECTUAL DISABILITIES 12/03/2015 PIYUSH MAGDALENO MD Ot I10 ESSENTIAL (PRIMARY) HYPERTENSION 12/03/2015 PIYUSH [...] F70 MILD INTELLECTUAL DISABILITIES 12/24/2015 PIYUSH MAGDALENO MD, Ot I10 ESSENTIAL (PRIMARY) HYPERTENSION 12/24/2015 PIYUSH [...] I10 ESSENTIAL (PRIMARY) HYPERTENSION 01/23/2016 PIYUSH MAGDALENO MD Ot N13.5 CROSSING VESSEL [...] I10 ESSENTIAL (PRIMARY) HYPERTENSION 02/10/2016 PIYUSH MAGDALENO MD, Ot N13.5 CROSSING VESSEL AND STRICTURE OF URETER 02/10/2016 PIYUSH MAGDALENO MD Ot N31.9 NEUROMUSCULAR DYSFUNCTION OF BLADDER, UN 03/16/2016 CELI REHMAN, ELSA Hannah Ot 591 HYDRONEPHROSIS 03/16/2016 CELI REHMAN, ELSA Hannah Ot 599.6 0 URINARY OBSTRUCTION, UNSPECIFIED 03/16/2016 CELI REHMAN, ELSA Hannah Ot 793.5 NOSP (ABN) FINDINGS ON RADIOLOGICAL OT 03/16/2016 JOEL BUCK RESILIENT TILE INSTALLER Ot 154.1 MALIGNANT NEOPL RECTUM 03/16/2016 JOEL BUCK RESILIENT TILE INSTALLER Ot 3 19 UNSPECIFIED INTELLECTUAL DISABILITIES 03/16/2016 JOEL BUCK RESILIENT TILE INSTALLER Ot 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 03/16/2016 JOEL BUCK RESILIENT TILE INSTALLER Ot 596.54 NEUROGENIC BLADDER, NOT OTHERWISE SPECIF 03/16/2016 JOEL BUCK RESILIENT TILE INSTALLER Ot 788.20 RETENTION OF URINE NOS 03/16/2016 JOEL BUCK RESILIENT TILE INSTALLER Ot V58.69 OT MED,LT,CURRENT USE 03/16/2016 LATANYA [...] HYDRONEPHROSIS 03/16/2016 JACK REHMAN, Mira KAPADIA Ot 788.2 0 RETENTION OF URINE NOS 03/16/2016 BUCK HILAH S RESILIENT TILE INSTALLER Ot 154.1 MALIGNANT NEOPL RECTUM 03/16/2016 BUCK HILAH S RESILIENT TILE INSTALLER Ot 272.4 HYPERLIPIDEMIA NEC/NOS 03/16/2016 BUCK HILAH S RESILIENT TILE INSTALLER Ot 3 17 MILD INTELLECTUAL DISABILITIES 03/16/2016 BUCK HILAH S RESILIENT TILE INSTALLER Ot 401.9 HYPERTENSION NOS 03/16/2016 Ot 154.1 [place] GNANT NEOPL RECTUM 03/16/2016 Ot 783.21 LOS S OF WEIGHT 03/16/2016 LATANYA REHMAN, CELINE Chilel [...] DYSFUNCTION OF BLADDER, UN 03/18/2016 PIYUSH MAGDALENO MD, Ot C20 MALIGNANT NEOPLASM OF RECTUM 04/07/2016 PIYUSH MAGDALENO MD Ot C20 MALIGNANT NEOPLASM OF RECTUM 04/14/2016 [...] I10 ESSENTIAL (PRIMARY) HYPERTENSION 06/14/2016 PIYUSH MAGDALENO MD Ot N13.5 CROSSING VESSEL AND STRICTURE OF URETER 06/14/2016 PIYUSH MAGDALENO MD Ot N31.9 NEUROMUSCULAR DYSFUNCTION OF BLADDER, UN 06/18/2016 PIYUSH MAGDALENO MD, Ot C20 MALIGNANT NEOPLASM OF RECTUM 06/18/2016 PIYUSH MAGDALENO MD Ot E78.5 HYPERLIPIDEMIA, UNSPECIFIED 06/18/2016 PIYUSH MAGDALENO MD Ot F70 MILD INTELLECTUAL DISABILITIES 06/18/2016 PIYUSH MAGDALENO MD Ot I10 ESSENTIAL (PRIMARY) HYPERTENSION 06/18/2016 PIYUSH MAGDALENO MD Ot N13.5 CROSSING VESSEL AND STRICTURE OF URETER 06/18/2016 PIYUSH MAGDALENO MD, Ot N31.9 NEUROMUSCULAR DYSFUNCTION OF BLADDER, UN 06/18/2016 PIYUSH MAGDALENO MD, Ot Z79.899 OTHER MASTER ESTHETICIAN (CURRENT) DRUG THERAPY 06/19/2016 PIYUSH MAGDALENO MD, Ot C20 MALIGNANT NEOPLASM OF RECTUM 06/19/2016 PIYUSH MAGDALENO MD, Ot N13.39 OTHER HYDRONEPHROSIS 07/05/2016 PIYUSH MAGDALENO MD, Ot C20 MALIGNANT NEOPLASM OF RECTUM 07/05/2016 PIYUSH MAGDALENO MD, Ot N13.39 OTHER HYDRONEPHROSIS 07/21/2016 PIYUSH MAGDALENO MD, Ot C20 MALIGNANT NEOPLASM OF RECTUM 07/21/2016 PIYUSH MAGDALENO MD, Ot N13.39 OTHER HYDRONEPHROSIS 07/28/2016 PIYUSH MAGDALENO MD, Ot C20 MALIGNANT NEOPLASM OF RECTUM 07/28/2016 PIYUSH MAGDALENO MD, Ot N13.39 OTHER HYDRONEPHROSIS 08/10/2016 PIYUSH MAGDALENO MD, Ot C20 MALIGNANT NEOPLASM OF RECTUM 08/10/2016 PIYUSH MAGDALENO MD Ot E78.5 HYPERLIPIDEMIA, UNSPECIFIED 08/10/2016 PIYUSH MAGDALENO MD Ot F70 MILD INTELLECTUAL DISABILITIES 08/10/2016 PIYUSH MAGDALENO MD Ot I10 ESSENTIAL (PRIMARY) HYPERTENSION 08/10/2016 PIYUSH MAGDALENO MD, Ot N13.5 CROSSING VESSEL AND STRICTURE OF URETER 08/10/2016 PIYUSH MAGDALENO MD, Ot N31.9 NEUROMUSCULAR DYSFUNCTION OF BLADDER, UN 08/10/2016 PIYUSH MAGDALENO MD, Ot Z79.899 OTHER FDC (CURRENT) DRUG THERAPY 08/13/2016 PIYUSH MAGDALENO MD, Ot C20 MALIGNANT NEOPLASM OF RECTUM 08/13/2016 PIYUSH MAGDALENO MD, Ot E78.5 HYPERLIPIDEMIA, UNSPECIFIED 08/13/2016 PIYUSH MAGDALENO MD Ot F70 MILD INTELLECTUAL DISABILITIES 08/13/2016 PIYUSH MAGDALENO MD Ot I10 ESSENTIAL (PRIMARY) HYPERTENSION 08/13/2016 PIYUSH MAGDALENO MD, Ot N13.5 CROSSING VESSEL AND STRICTURE OF URETER 08/13/2016 PIYUSH MAGDALENO MD, Ot N31.9 NEUROMUSCULAR DYSFUNCTION OF BLADDER, UN 08/13/2016 PIYUSH MAGDALENO MD, Ot Z79.899 OTHER FDC (CURRENT) DRUG THERAPY 09/15/2016 PIYUSH MAGDALENO MD, Ot C20 MALIGNANT NEOPLASM OF RECTUM 09/15/2016 PIYUSH MAGDALENO MD, Ot E78.5 HYPERLIPIDEMIA, UNSPECIFIED 09/15/2016 PIYUSH MAGDALENO MD Ot F70 MILD INTELLECTUAL DISABILITIES 09/15/2016 PIYUSH MAGDALENO MD Ot I10 ESSENTIAL (PRIMARY) HYPERTENSION 09/15/2016 PIYUSH MAGDALENO MD Ot N13.5 CROSSING VESSEL AND STRICTURE OF URETER 09/15/2016 PIYUSH MAGDALENO MD Ot N31.9 NEUROMUSCULAR DYSFUNCTION OF BLADDER, UN 09/15/2016 PIYUSH MAGDALENO MD Ot Z79.899 OTHER MASTER ESTHETICIAN (CURRENT) DRUG THERAPY 12/10/2016 JULIA MORALES MD Ot E78.00 PURE HYPERCHOLESTEROLEMIA, UNSPECIFIED 12/10/2016 JULIA MORALES MD, Ot I10 ESSENTIAL (PRIMARY) HYPERTENSION 12/10/2016 JULIA MORALES MD Ot R34 ANURIA AND OLIGURIA 12/10/2016 JULIA MORALES MD Ot R61 GENERALIZED HYPERHIDROSIS 12/10/2016 JULIA MORALES MD, Ot Z79.899 OTHER MASTER ESTHETICIAN (CURRENT) DRUG THERAPY 12/10/2016 JULIA MORALES MD Ot Z85.038 PERSONAL HISTORY OF MALIGNANT NEOPLASM O 12/10/2016 JULIA MORALES MD Ot Z90.49 ACQUIRED ABSENCE OF OTHER SPECIFIED PART 12/10/2016 JULIA MORALES MD Ot Z96 .0 PRESENCE OF UROGENITAL IMPLANTS 12/11/2016 JULIA MORALES MD, Ot E78.00 PURE HYPERCHOLESTEROLEMIA, UNSPECIFIED 12/11/2016 JULIA MORALES MD Ot I10 ESSENTIAL (PRIMARY) HYPERTENSION 12/11/2016 JULIA MORALES MD Ot R34 ANURIA AND OLIGURIA 12/11/2016 JULIA MORALES MD Ot R61 GENERALIZED HYPERHIDROSIS 12/11/2016 JULIA MORALES MD Ot Z79.899 OTHER MASTER ESTHETICIAN (CURRENT) DRUG THERAPY 12/11/2016 JULIA MORALES MD Ot Z85.038 PERSONAL HISTORY OF MALIGNANT NEOPLASM O 12/11/2016 JULIA MORALES MD Ot Z90.49 ACQUIRED ABSENCE OF OTHER SPECIFIED PART 12/11/2016 JULIA MORALES MD Ot Z96 .0 PRESENCE OF UROGENITAL IMPLANTS 12/11/2016 NEELIMA HESTER MD Ot C20 MALIGNANT NEOPLASM OF RECTUM 12/11/2016 NEELIMA HESTER MD, Ot E78. 5 HYPERLIPIDEMIA, UNSPECIFIED 12/11/2016 NEELIMA HESTER MD, Ot F70 MILD INTELLECTUAL DISABILITIES 12/11/2016 NEELIMA HESTER MD Ot I10 ESSENTIAL (PRIMARY) HYPERTENSION 12/11/2016 NEELIMA HESTER MD, Ot N13. 5 CROSSING VESSEL AND STRICTURE OF URETER 12/11/2016 NEELIMA HESTER MD, Ot N31. 9 NEUROMUSCULAR DYSFUNCTION OF BLADDER, UN 12/11/2016 NEELIMA HESTER MD, Ot Z79.899 OTHER MASTER ESTHETICIAN (CURRENT) DRUG THERAPY 12/14/2016 NEELIMA HESTER MD, Ot C20 MALIGNANT NEOPLASM OF RECTUM 12/14/2016 NEELIMA HESTER MD Ot E78. 5 HYPERLIPIDEMIA, UNSPECIFIED 12/14/2016 NEELIMA HESTER MD Ot F70 MILD INTELLECTUAL DISABILITIES 12/14/2016 NEELIMA HESTER MD, Ot I10 ESSENTIAL (PRIMARY) HYPERTENSION 12/14/2016 NEELIMA HESTER MD, Ot N13. 5 CROSSING VESSEL AND STRICTURE OF URETER 12/14/2016 NEELIMA HESTER MD, Ot N31. 9 NEUROMUSCULAR DYSFUNCTION OF BLADDER, UN 12/14/2016 NEELIMA HESTER MD, Ot Z79.899 OTHER FDC (CURRENT) DRUG THERAPY 12/24/2016 NEELIMA HESTER MD, Ot C20 MALIGNANT NEOPLASM OF RECTUM 12/24/2016 NEELIMA HESTER MD, Ot E78. 5 HYPERLIPIDEMIA, UNSPECIFIED 12/24/2016 NEELIMA HESTER MD, Ot F70 MILD INTELLECTUAL DISABILITIES 12/24/2016 NEELIMA HESTER MD, Ot I10 ESSENTIAL (PRIMARY) HYPERTENSION 12/24/2016 NEELIMA HESTER MD, Ot N13. 5 CROSSING VESSEL AND STRICTURE OF URETER 12/24/2016 NEELIMA HESTER MD, Ot N31. 9 NEUROMUSCULAR DYSFUNCTION OF BLADDER, UN 12/24/2016 NEELIMA HESTER MD, Ot Z79.899 OTHER FDC (CURRENT) DRUG THERAPY 12/28/2016 PIYUSH MAGDALENO MD, Ot C20 MALIGNANT NEOPLASM OF RECTUM 12/28/2016 PIYUSH MAGDALENO MD Ot N13.30 UNSPECIFIED HYDRONEPHROSIS 12/28/2016 PIYUSH MAGDALENO MD, Ot N26.1 ATROPHY OF KIDNEY (TERMINAL) 12/28/2016 PIYUSH MAGDALENO MD Ot Z96.0 PRESENCE OF UROGENITAL IMPLANTS 12/28/2016 PIYUSH MAGDALENO MD Ot Z98.890 OTHER SPECIFIED [...] OF RECTUM 12/31/2016 NEELIMA HESTER MD, Ot E78. 5 HYPERLIPIDEMIA, UNSPECIFIED 12/31/2016 NEELIMA HESTER MD, Ot F70 MILD INTELLECTUAL DISABILITIES 12/31/2016 NEELIMA HESTER MD, Ot I10 ESSENTIAL (PRIMARY) HYPERTENSION 12/31/2016 NEELIMA HESTER MD, Ot N13. 5 CROSSING VESSEL AND STRICTURE OF URETER 12/31/2016 NEELIMA HESTER MD, Ot N31. 9 NEUROMUSCULAR DYSFUNCTION OF BLADDER, UN 12/31/2016 NEELIMA HESTER MD, Ot Z79.899 OTHER FDC (CURRENT) DRUG THERAPY 01/15/2017 PIYUSH MAGDALENO MD, Ot C20 MALIGNANT NEOPLASM OF RECTUM 01/15/2017 PIYUSH MAGDALENO MD Ot N13.30 UNSPECIFIED HYDRONEPHROSIS 01/15/2017 PIYUSH MAGDALENO MD Ot N26.1 ATROPHY OF KIDNEY (TERMINAL) 01/15/2017 PIYUSH MAGDALENO MD Ot Z96.0 PRESENCE OF UROGENITAL IMPLANTS 01/15/2017 PIYUSH MAGDALENO MD Ot Z98.890 OTHER SPECIFIED POSTPROCEDURAL STATES 01/15/2017 NEELIMA HESTER MD, Ot C20 MALIGNANT NEOPLASM OF RECTUM 01/15/2017 NEELIMA HESTER MD, Ot E78. 5 HYPERLIPIDEMIA, UNSPECIFIED 01/15/2017 NEELIMA HESTER MD, Ot F70 MILD INTELLECTUAL DISABILITIES 01/15/2017 NEELIMA HESTER MD, Ot I10 ESSENTIAL (PRIMARY) HYPERTENSION 01/15/2017 NEELIMA HESTER MD, Ot N13. 5 CROSSING VESSEL AND STRICTURE OF URETER 01/15/2017 NEELIMA HESTER MD, Ot N31. 9 NEUROMUSCULAR DYSFUNCTION OF BLADDER, UN 01/15/2017 NEELIMA HESTER MD, Ot Z79.899 OTHER FDC (CURRENT) DRUG THERAPY 07/04/2017 NEELIMA HESTER MD, Ot K44. 9 DIAPHRAGMATIC HERNIA WITHOUT OBSTRUCTION 07/04/2017 NEELIMA HESTER MD, Ot N26. 1 ATROPHY OF KIDNEY (TERMINAL) 07/04/2017 NEELIMA HESTER MD, Ot R91. 1 SOLITARY PULMONARY NODULE 07/04/2017 NEELIMA HESTER MD, Ot Z85.048 PRSNL HX OF MALIG NEOPLM OF RECTUM, RECT 07/04/2017 NEELIMA HESTER MD, Ot Z96. 0 PRESENCE OF UROGENITAL IMPLANTS 07/21/2017 NEELIMA HESTER MD, Ot K44. 9 DIAPHRAGMATIC HERNIA WITHOUT OBSTRUCTION 07/21/2017 NEELIMA HESTER MD, Ot N26. 1 ATROPHY OF KIDNEY (TERMINAL) 07/21/2017 NEELIMA HESTER MD, Ot R91. 1 SOLITARY PULMONARY NODULE 07/21/2017 NEELIMA HESTER MD, Ot Z85.048 PRSNL HX OF MALIG NEOPLM OF RECTUM, RECT 07/21/2017 NEELIMA HESTER MD, Ot Z96. 0 PRESENCE OF UROGENITAL IMPLANTS 07/23/2017 NEELIMA HESTER MD, Ot C20 MALIGNANT NEOPLASM OF RECTUM 07/23/2017 NEELIMA HESTER MD, Ot E78. 5 HYPERLIPIDEMIA, UNSPECIFIED 07/23/2017 NEELIMA HESTER MD, Ot F70 MILD INTELLECTUAL DISABILITIES 07/23/2017 NEELIMA HESTER MD, Ot I10 ESSENTIAL (PRIMARY) HYPERTENSION 07/23/2017 NEELIMA HESTER MD, Ot N13. 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 1 ATROPHY OF KIDNEY (TERMINAL) 07/23/2017 NEELIMA HESTER MD, Ot N31. 9 NEUROMUSCULAR DYSFUNCTION OF BLADDER, UN 07/23/2017 NEELIMA HESTER MD, Ot Z79.899 OTHER [facility] (CURRENT) DRUG THERAPY 07/23/2017 NEELIMA HESTER MD, Ot Z96. 0 PRESENCE OF UROGENITAL IMPLANTS 07/23/2017 NEELIMA HESTER MD, Ot Z98.890 OTHER SPECIFIED POSTPROCEDURAL STATES 09/27/2017 NEELIMA HESTER MD, Ot C20 MALIGNANT NEOPLASM OF RECTUM 09/27/2017 NEELIMA HESTER MD, Ot E78. 5 HYPERLIPIDEMIA, UNSPECIFIED 09/27/2017 NEELIMA HESTER MD Ot F70 MILD INTELLECTUAL DISABILITIES 09/27/2017 NEELIMA HESTER MD, Ot I10 ESSENTIAL (PRIMARY) HYPERTENSION 09/27/2017 NEELIMA HESTER MD, Ot N13. 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 1 ATROPHY OF KIDNEY (TERMINAL) 09/27/2017 NEELIMA HESTER MD, Ot N31. 9 NEUROMUSCULAR DYSFUNCTION OF BLADDER, UN 09/27/2017 NEELIMA HESTER MD, Ot Z79.899 OTHER [facility] (CURRENT) DRUG THERAPY 09/27/2017 NEELIMA HESTER MD, Ot Z96. 0 PRESENCE OF UROGENITAL IMPLANTS 09/27/2017 NEELIMA HESTER MD, Ot Z98.890 OTHER SPECIFIED POSTPROCEDURAL STATES 09/28/2017 NEELIMA HESTER MD, Ot C20 MALIGNANT NEOPLASM OF RECTUM 09/28/2017 NEELIMA HESTER MD, Ot E78. 5 HYPERLIPIDEMIA, UNSPECIFIED 09/28/2017 NEELIMA HESTER MD Ot F70 MILD INTELLECTUAL DISABILITIES 09/28/2017 NEELIMA HESTER MD, Ot I10 ESSENTIAL (PRIMARY) HYPERTENSION 09/28/2017 NEELIMA HESTER MD, Ot N13. 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 1 ATROPHY OF KIDNEY (TERMINAL) 09/28/2017 NEELIMA HESTER MD, Ot N31. 9 NEUROMUSCULAR DYSFUNCTION OF BLADDER, UN 09/28/2017 NEELIMA HESTER MD, Ot Z79.899 OTHER [facility] (CURRENT) DRUG THERAPY 09/28/2017 NEELIMA HESTER MD Ot Z96. 0 PRESENCE OF UROGENITAL IMPLANTS 09/28/2017 NEELIMA HESTER MD Ot Z98.890 OTHER SPECIFIED POSTPROCEDURAL STATES 10/05/2017 NEELIMA HESTER MD, Ot C20 MALIGNANT NEOPLASM OF RECTUM 10/05/2017 NEELIMA HESTER MD, Ot E78. 5 HYPERLIPIDEMIA, UNSPECIFIED 10/05/2017 NEELIMA HESTER MD, Ot F70 MILD INTELLECTUAL DISABILITIES 10/05/2017 NEELIMA HESTER MD Ot I10 ESSENTIAL (PRIMARY) HYPERTENSION 10/05/2017 NEELIMA HESTER MD, Ot N13. 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 1 ATROPHY OF KIDNEY (TERMINAL) 10/05/2017 NEELIMA HESTER MD, Ot N31. 9 NEUROMUSCULAR DYSFUNCTION OF BLADDER, UN 10/05/2017 NEELIMA HESTER MD, Ot Z79.899 OTHER [employer] (CURRENT) DRUG THERAPY 10/05/2017 NEELIMA HESTER MD, Ot Z96. 0 PRESENCE OF UROGENITAL IMPLANTS 10/05/2017 NEELIMA HESTER MD, Ot Z98.890 OTHER SPECIFIED POSTPROCEDURAL STATES 01/19/2018 NEELIMA HESTER MD, Ot E78. 5 HYPERLIPIDEMIA, UNSPECIFIED 01/19/2018 NEELIMA HESTER MD Ot F70 MILD INTELLECTUAL DISABILITIES 01/19/2018 NEELIMA HESTER MD Ot I10 ESSENTIAL (PRIMARY) HYPERTENSION 01/19/2018 NEELIMA HESTER MD, Ot N13. 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 1 ATROPHY OF KIDNEY (TERMINAL) 01/19/2018 NEELIMA HESTER MD, Ot N31. 9 NEUROMUSCULAR DYSFUNCTION OF BLADDER, UN 01/19/2018 NEELIMA HESTER MD, Ot Z08 ENCNTR FOR FOLLOW-UP EXAM AFTER TRTMT FO 01/19/2018 NEELIMA HESTER MD, Ot Z79.899 OTHER MASTER ESTHETICIAN (CURRENT) DRUG THERAPY 01/19/2018 NEELIMA HESTER MD, Ot Z85.048 PRSNL HX OF MALIG NEOPLM OF RECTUM, RECT 01/19/2018 NEELIMA HESTER MD, Ot Z92. 21 PERSONAL HISTORY OF ANTINEOPLASTIC CHEMO 01/19/2018 NEELIMA HESTER MD, Ot Z92. 3 PERSONAL HISTORY OF IRRADIATION 01/19/2018 NEELIMA HESTER MD, Ot Z96. 0 PRESENCE OF UROGENITAL IMPLANTS 01/30/2018 NEELIMA HESTER MD, Ot E78. 5 HYPERLIPIDEMIA, UNSPECIFIED 01/30/2018 NEELIMA HESTER MD, Ot F70 MILD INTELLECTUAL DISABILITIES 01/30/2018 NEELIMA HESTER MD, Ot I10 ESSENTIAL (PRIMARY) HYPERTENSION 01/30/2018 NEELIMA HESTER MD, Ot N13. 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 1 ATROPHY OF KIDNEY (TERMINAL) 01/30/2018 NEELIMA HESTER MD, Ot N31. 9 NEUROMUSCULAR DYSFUNCTION OF BLADDER, UN 01/30/2018 NEELIMA HESTER MD, Ot Z08 ENCNTR FOR FOLLOW-UP EXAM AFTER TRTMT FO 01/30/2018 NEELIMA HESTER MD, Ot Z79.899 OTHER [facility] (CURRENT) DRUG THERAPY 01/30/2018 NEELIMA HESTER MD, Ot Z85.048 PRSNL HX OF MALIG NEOPLM OF RECTUM, RECT 01/30/2018 NEELIMA HESTER MD, Ot Z92. 21 PERSONAL HISTORY OF ANTINEOPLASTIC CHEMO 01/30/2018 NEELIMA HESTER MD, Ot Z92. 3 PERSONAL HISTORY OF IRRADIATION 01/30/2018 NEELIMA HESTER MD, Ot Z96. 0 PRESENCE OF UROGENITAL IMPLANTS 01/31/2018 CELINE PELAEZ MD Ot Z01.818 ENCOUNTER FOR OTHER PREPROCEDURAL EXAMIN 02/01/2018 CELINE PELAEZ MD Ot Z01.818 ENCOUNTER FOR OTHER PREPROCEDURAL EXAMIN 02/01/2018 NEELIMA HESTER MD, Ot E78. 5 HYPERLIPIDEMIA, UNSPECIFIED 02/01/2018 NEELIMA HESTER MD Ot F70 MILD INTELLECTUAL DISABILITIES 02/01/2018 NEELIMA HESTER MD, Ot I10 ESSENTIAL (PRIMARY) HYPERTENSION 02/01/2018 NEELIMA HESTER MD, Ot N13. 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 1 ATROPHY OF KIDNEY (TERMINAL) 02/01/2018 NEELIMA HESTER MD, Ot N31. 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 21 PERSONAL HISTORY OF ANTINEOPLASTIC CHEMO 02/01/2018 NEELIMA HESTER MD, Ot Z92. 3 PERSONAL HISTORY OF IRRADIATION 02/01/2018 NEELIMA HESTER MD, Ot Z96. 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 02/07/2018 JOEL BUCK RESILIENT TILE INSTALLER Ot 596.54 NEUROGENIC BLADDER, NOT OTHERWISE SPECIF 02/07/2018 JOEL BUCK RESILIENT TILE INSTALLER Ot 788.20 RETENTION OF URINE NOS 02/07/2018 JOEL BUCK RESILIENT TILE INSTALLER Ot V58.69 OT MED,LT,CURRENT USE 02/07/2018 LATANYA REHMAN, CELINE Chilel Ot 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 02/07/2018 CELINE PELAEZ MD Ot V72.84 EXAM PRE-OPERATIVE NOS 02/07/2018 CELINE PELAEZ MD Ot 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 02/07/2018 CELINE PELAEZ MD Ot V72.63 PRE-PROCEDURAL LABORATORY EXAMINATION 02/07/2018 CELINE PELAEZ MD Ot V74.8 SCREEN-BACTERIAL DIS NEC 02/07/2018 CELINE PELAEZ MD Ot 154.1 MALIGNANT NEOPL RECTUM 02/07/2018 CELINE PELAEZ MD, Ot V72.84 EXAM PRE-OPERATIVE NOS 02/07/2018 JACK REHMAN, Mira [place] Ot 591 HYDRONEPHROSIS 02/07/2018 JACK REHMAN, Mira [place] Ot 788.2 0 RETENTION OF URINE NOS 02/07/2018 BUCKJEOL Rider S RESILIENT TILE INSTALLER Ot 154.1 MALIGNANT NEOPL RECTUM 02/07/2018 BUCKJOEL Rider S RESILIENT TILE INSTALLER Ot 272.4 HYPERLIPIDEMIA NEC/NOS 02/07/2018 BUCKJOEL Rider S RESILIENT TILE INSTALLER Ot 3 17 MILD INTELLECTUAL DISABILITIES 02/07/2018 BUCKJOEL Rider S RESILIENT TILE INSTALLER Ot 401.9 HYPERTENSION NOS 02/07/2018 Ot 154.1 [place] GNANT NEOPL RECTUM 02/07/2018 Ot 783.21 LOS S OF WEIGHT 02/07/2018 LATANYA REHMAN, CELINE Chilel Ot V72.84 EXAM PRE-OPERATIVE NOS 02/07/2018 PIYUSH MAGDALENO MD, Ot C20 MALIGNANT NEOPLASM OF RECTUM 02/07/2018 PIYUSH MAGDALENO MD, Ot C20 MALIGNANT NEOPLASM OF RECTUM 02/07/2018 PIYUSH MAGDALENO MD, Ot C20 MALIGNANT NEOPLASM OF RECTUM 02/07/2018 PIYUSH MAGDALENO MD, Ot C20 MALIGNANT NEOPLASM OF RECTUM 02/07/2018 PIYUSH MAGDALENO MD Ot N13.39 OTHER HYDRONEPHROSIS 02/07/2018 PIYUSH MAGDALENO MD, Ot C20 MALIGNANT NEOPLASM OF RECTUM 02/07/2018 PIYUSH MAGDALENO MD Ot N13.30 UNSPECIFIED HYDRONEPHROSIS 02/07/2018 PIYUSH MAGDALENO MD Ot N26.1 ATROPHY OF KIDNEY (TERMINAL) 02/07/2018 PIYUSH MAGDALENO MD Ot Z96.0 PRESENCE OF UROGENITAL IMPLANTS 02/07/2018 PIYUSH MAGDALENO MD Ot Z98.890 OTHER SPECIFIED POSTPROCEDURAL STATES 02/07/2018 NEELIMA HESTER MD, Ot K44. 9 DIAPHRAGMATIC HERNIA WITHOUT OBSTRUCTION 02/07/2018 NEELIMA HESTER MD, Ot N26. 1 ATROPHY OF KIDNEY (TERMINAL) 02/07/2018 NEELIMA HESTER MD, Ot R91. 1 SOLITARY PULMONARY NODULE 02/07/2018 NEELIMA HESTER MD, Ot Z85.048 PRSNL HX OF MALIG NEOPLM OF RECTUM, RECT 02/07/2018 NEELIMA HESTER MD Ot Z96. 0 PRESENCE OF UROGENITAL IMPLANTS 02/07/2018 NEELIMA HESTER MD, Ot E78. 5 HYPERLIPIDEMIA, UNSPECIFIED 02/07/2018 NEELIMA HESTER MD, Ot F70 MILD INTELLECTUAL DISABILITIES 02/07/2018 NEELIMA HESTER MD, Ot I10 ESSENTIAL (PRIMARY) HYPERTENSION 02/07/2018 NEELIMA HESTER MD, Ot N13. 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 1 ATROPHY OF KIDNEY (TERMINAL) 02/07/2018 NEELIMA HESTER MD, Ot N31. 9 NEUROMUSCULAR DYSFUNCTION OF BLADDER, UN 02/07/2018 NEELIMA HESTER MD, Ot Z08 ENCNTR FOR FOLLOW-UP EXAM AFTER TRTMT FO 02/07/2018 NEELIMA HESTER MD, Ot Z79.899 OTHER MASTER ESTHETICIAN (CURRENT) DRUG THERAPY 02/07/2018 NEELIMA HESTER MD, Ot Z85.048 PRSNL HX OF MALIG NEOPLM OF RECTUM, RECT 02/07/2018 NEELIMA HESTER MD, Ot Z92. 21 PERSONAL HISTORY OF ANTINEOPLASTIC CHEMO 02/07/2018 NEELIMA HESTER MD, Ot Z92. 3 PERSONAL HISTORY OF IRRADIATION 02/07/2018 NEELIMA HESTER MD, Ot Z96. 0 PRESENCE OF UROGENITAL IMPLANTS 02/07/2018 CELINE PELAEZ MD, Ot E78.00 PURE HYPERCHOLESTEROLEMIA, UNSPECIFIED 02/07/2018 CELINE PELAEZ MD, Ot G40.909 EPILEPSY, UNSP, NOT INTRACTABLE, WITHOUT 02/07/2018 CELINE PELAEZ MD, Ot I1 0 ESSENTIAL (PRIMARY) HYPERTENSION 02/07/2018 CELINE PELAEZ MD, Ot K57.30 DVRTCLOS OF LG INT W/O PERFORATION OR AB 02/07/2018 CELINE PELAEZ MD, Ot Z12.11 ENCOUNTER FOR SCREENING FOR MALIGNANT NE 02/07/2018 CELINE PELAEZ MD, Ot Z79.899 OTHER MASTER ESTHETICIAN (CURRENT) DRUG THERAPY 02/07/2018 CELINE PELAEZ MD, Ot Z85.048 PRSNL HX OF MALIG NEOPLM OF RECTUM, RECT 02/07/2018 CELINE PELAEZ MD, Ot Z92.21 PERSONAL HISTORY OF ANTINEOPLASTIC CHEMO 02/07/2018 CELINE PELAEZ MD, Ot Z92.3 PERSONAL HISTORY OF IRRADIATION 02/09/2018 NEELIMA HESTER MD Ot C20 MALIGNANT NEOPLASM OF RECTUM 02/09/2018 NEELIMA HESTER MD, Ot F71 MODERATE INTELLECTUAL DISABILITIES 02/09/2018 NEELIMA HESTER MD, Ot N13. 39 OTHER HYDRONEPHROSIS 02/13/2018 CELINE PELAEZ MD, Ot E78.00 PURE HYPERCHOLESTEROLEMIA, UNSPECIFIED 02/13/2018 CELINE PELAEZ MD, Ot G40.909 EPILEPSY, UNSP, NOT INTRACTABLE, WITHOUT 02/13/2018 CELINE PELAEZ MD, Ot I1 0 ESSENTIAL (PRIMARY) HYPERTENSION 02/13/2018 CELINE PELAEZ MD, Ot K57.30 DVRTCLOS OF LG INT W/O PERFORATION OR AB 02/13/2018 CELINE PELAEZ MD, Ot Z12.11 ENCOUNTER FOR SCREENING FOR MALIGNANT NE 02/13/2018 CELINE PELAEZ MD, Ot Z79.899 OTHER [facility] (CURRENT) DRUG THERAPY 02/13/2018 CELINE PELAEZ MD, Ot Z85.048 PRSNL HX OF MALIG NEOPLM OF RECTUM, RECT 02/13/2018 CELINE PELAEZ MD, Ot Z92.21 PERSONAL HISTORY OF ANTINEOPLASTIC CHEMO 02/13/2018 CELINE PELAEZ MD, Ot Z92.3 PERSONAL HISTORY OF IRRADIATION 07/14/2018 NEELIMA HESTER MD, Ot E78. 5 HYPERLIPIDEMIA, UNSPECIFIED 07/14/2018 NEELIMA HESTER MD Ot F70 MILD INTELLECTUAL DISABILITIES 07/14/2018 NEELIMA HESTER MD Ot I10 ESSENTIAL (PRIMARY) HYPERTENSION 07/14/2018 NEELIMA HESTER MD, Ot N13. 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 1 ATROPHY OF KIDNEY (TERMINAL) 07/14/2018 NEELIMA HESTER MD, Ot N31. 9 NEUROMUSCULAR DYSFUNCTION OF BLADDER, UN 07/14/2018 NEELIMA HESTER MD, Ot Z08 ENCNTR FOR FOLLOW-UP EXAM AFTER TRTMT FO 07/14/2018 NEELIMA HESTER MD, Ot Z79.899 OTHER MASTER ESTHETICIAN (CURRENT) DRUG THERAPY 07/14/2018 NEELIMA HESTER MD, Ot Z85.048 PRSNL HX OF MALIG NEOPLM OF RECTUM, RECT 07/14/2018 NEELIMA HESTER MD, Ot Z92. 21 PERSONAL HISTORY OF ANTINEOPLASTIC CHEMO 07/14/2018 NEELIMA HESTER MD, Ot Z92. 3 PERSONAL HISTORY OF IRRADIATION 07/14/2018 NEELIMA HESTER MD, Ot Z96. 0 PRESENCE OF UROGENITAL IMPLANTS 07/21/2018 NEELIMA HESTER MD, Ot C20 MALIGNANT NEOPLASM OF RECTUM 07/27/2018 MIR REHMAN, NEELIMA Gamez C20 MALIGNANT NEOPLASM OF RECTUM 08/10/2018 MIR REHMAN, NEELIMA Gamez C20 MALIGNANT NEOPLASM OF RECTUM 02/27/2019 MIR REHMAN, NEELIMA Gamez C20 MALIGNANT NEOPLASM OF RECTUM 04/12/2019 MIR REHMAN, NEELIMA Gamez C20 MALIGNANT NEOPLASM OF RECTUM 04/17/2019 MIR REHMAN, NEELIMA Gamez C20 MALIGNANT NEOPLASM OF RECTUM 06/28/2019 MIR REHMAN, NEELIMA Gamez C20 MALIGNANT NEOPLASM OF RECTUM 07/07/2019 NEELIMA HESTER MD, Ot C20 MALIGNANT NEOPLASM OF RECTUM 07/08/2019 Mira SANTIAGO MD Ot N13.3 0 UNSPECIFIED HYDRONEPHROSIS 07/12/2019 Mira SANTIAGO MD, Ot N13.3 0 UNSPECIFIED HYDRONEPHROSIS 07/25/2019 MIR REHMAN, NEELIMA Gamez C20 MALIGNANT NEOPLASM OF RECTUM 07/26/2019 Mira SANTIAGO MD Ot N13.3 0 UNSPECIFIED HYDRONEPHROSIS Procedures Code Description Performed By Per formed On 46.01 SM B OWEL EXTERIORIZATION 11/01/2013 48.63 ANTE RIOR RECT RESECT NEC 11/01/2013 57.81 SUTU RE BLADDER LACERAT 11/01/2013 46.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 02/07/2014 Results Test Result Range Complete blood count (CBC) with automate d white blood cell (WBC) differential - 12/10/16 14:01 Blood leukocytes automated count (number/volume) 8.4 10*3/uL 4.3-11.0 Blood erythrocytes automated count (number/volume) 4.08 10*6/uL 4.35-5.85 Venous blood hemoglobin measurement (mass/volume) 12.4 g/dL 13.3-17.7 Blood hematocrit (volume fraction) 35 % 40-54 Automated erythrocyte mean corpuscular volume 85 [ foz_us] 80-99 Automated erythrocyte mean corpuscular h emoglobin (mass per erythrocyte) 30 pg 25-34 Automated erythrocyte mean corpuscular h emoglobin concentration measurement (mass/volume) 36 g/dL 32-36 Automated erythrocyte distribution width ratio 13. 2 % 10.0- 14.5 Automated blood platelet count (count/volume) 95 1 0*3/uL 130-400 Automated blood platelet mean volume measurement [...] 10*3 1.0-4.0 Blood monocytes automated count (number/volume) 0. 9 10*3 0.0-1.0 Automated eosinophil count 0.0 10*3/uL 0 .0-0.3 Automated blood basophil count (count/volume) 0.0 10*3/uL 0.0-0.1 Comprehensive metabolic panel - 12/10/16 14:01 Serum or plasma sodium measurement (moles/volume) 128 mmol/L 135-145 Serum or plasma potassium measurement (moles/volume) 2.4 mmol/L 3.6-5.0 Serum or plasma chloride measurement (moles/volume) 91 mmol/L 98-107 Carbon dioxide 20 mmol/L 21-32 Serum or plasma anion gap determination (moles/volume) 17 mmol/L 5-14 Serum or plasma urea nitrogen measurement (mass/volume ) 29 mg/dL 7-18 Serum or plasma creatinine measurement (mass/volume) 1.75 mg/dL 0.60-1.30 Serum or plasma urea nitrogen/creatinine mass ratio 17 NRG Serum or plasma creatinine measurement w ith calculation of estimated glomerular filtration rate 41 NRG Serum or plasma glucose measurement (mass/volume) 171 mg/dL 70-105 Serum or plasma calcium measurement (mass/volume) 8.3 mg/dL 8.5-10.1 Serum or plasma total bilirubin measurement (mass/volu me) 1.0 mg/dL 0.1-1.0 Serum or plasma alkaline phosphatase mishel surement (enzymatic activity/volume) 89 U/L 40-136 Serum or plasma aspartate aminotransfera se measurement (enzymatic activity/volume) 105 U/L 5-34 Serum or plasma alanine aminotransferase measurement (enzymatic activity/volume) 80 U/L 0-55 Serum or plasma protein measurement (mass/volume) 6.9 g/dL 6.4-8.2 Serum or plasma albumin measurement (mass/volume) 3.5 g/dL 3.2-4.5 Blood manual differential performed dete ction - 12/10/16 14:01 Blood monocytes/100 leukocytes 5 % NRG Manual blood segmented neutrophils/100 leukocytes 90 % NRG Blood band neutrophils/100 leukocytes 0 % NRG Manual blood lymphocytes/100 leukocytes 5 % NRG Manual eosinophils/100 leukocytes in nose 0 % NRG Manual blood basophils/100 leukocytes 0 % NRG Blood erythrocyte morphology finding identification NORMAL NRG Serum ragweed IgE antibody assay - 02/07 09:25 Serum ragweed IgE antibody assay 1.5 % 0.0-5.0 Whole blood basic metabolic panel - 09/19 14:39 Serum or plasma sodium measurement (moles/volume) 139 mmol/L 135-145 Serum or plasma potassium measurement (moles/volume) 4.3 mmol/L 3.6-5.0 Serum or plasma chloride measurement (moles/volume) 101 mmol/L 98-107 Carbon dioxide 26 mmol/L 21-32 Serum or plasma anion gap determination (moles/volume) 12 mmol/L 5-14 Serum or plasma urea nitrogen measurement (mass/volume ) 9 mg/dL 7-18 Serum or plasma creatinine measurement (mass/volume) 1.17 mg/dL 0.60-1.30 Serum or plasma urea nitrogen/creatinine mass ratio 8 NRG Serum or plasma creatinine measurement w ith calculation of estimated glomerular filtration rate > NRG Serum or plasma glucose measurement (mass/volume) 79 mg/dL 70-105 Serum or plasma calcium measurement (mass/volume) 9.7 mg/dL 8.5-10.1 Encounters ACCT No. Visit Date/Time Discharge Status Pt. Type Provider Facility Loc./Unit Complaint [id number] 05/15/2019 10:30:00 05/15/2019 23:59:5 9 CLS Outpatient DAJUAN [facility] [id number] 07/27/2019 05:33:00 10:18:00 DIS Outpatient EYAD MONTEMAYOR DO [facility] PREOP COLONOSCOPY/EGD [id number] 07/06/2019 14:50:00 13:15:00 DIS Outpatient NEELIMA HESTER MD [facility] ONC [id number] 07/06/2019 14:18:00 23:59:59 CLS Outpatient Mira SANTIAGO MD [facility] LAB HYDRONEPHROSIS [id number] 01/19/2019 14:44:00 00:01:00 DIS Outpatient NEELIMA HESTER MD [facility] ONC [id number] 07/21/2018 14:52:00 23:59:59 CLS Outpatient NEELIMA HESTER MD [facility] ONC [id number] 02/07/2018 09:26:00 23:59:59 CLS Outpatient NEELIMA HESTER MD [facility] LAB C20,N13.39,F71 [id number] 02/07/2018 07:02:00 09:55:00 DIS Outpatient CELINE PELAEZ MD [facility] ENDO SCREENING/HX RECTAL CA NCER [id number] 01/31/2018 05:41:00 018 14:23:00 DIS Outpatient CELINE PELAEZ MD [facility] PREOP COLONOSCOPY [id number] 01/13/2018 12:53:00 018 00:01:00 DIS Outpatient NEELIMA HESTER MD [facility] ONC [id number] 07/08/2017 12:46:00 018 00:01:00 DIS Outpatient NEELIMA HESTER MD [facility] ONC [id number] 07/01/2017 12:56:00 03/01/2 018 23:59:59 CLS Outpatient MIR REHMAN, NEELIMA [facility] RAD R93.8 ABN CAT SCAN [id number] 01/01/2017 10:29:00 017 13:47:00 DIS Outpatient MIR REHMAN, NEELIMA [facility] ONC [id number] 12/25/2016 12:27:00 017 23:59:59 CLS Outpatient PIYUSH MAGDALENO MD [facility] RAD RECTAL CA [id number] 12/10/2016 13:24:00 017 16:18:00 DIS Emergency JULIA MORALES MD [facility] ER SWEATING,CANNOT URINATE ,HAS A STINT [id number] 08/06/2016 14:30:00 00:01:00 DIS Outpatient PIYUSH MAGDALENO MD [facility] ONC [id number] 06/18/2016 12:00:00 017 23:59:59 CLS Outpatient PIYUSH MAGDALENO MD [facility] RAD RECTAL CA [id number] 03/23/2016 15:27:00 00:01:00 DIS Outpatient PIYUSH MAGDALENO MD [facility] ONC [id number] 03/16/2016 14:12:00 016 23:59:59 CLS Outpatient PIYUSH MAGDALENO MD [facility] RAD RECTAL CANCER [id number] 12/23/2015 15:00:00 016 14:57:00 DIS Outpatient PIYUSH MAGDALENO MD [facility] ONC [id number] 09/23/2015 14:36:00 016 00:01:00 DIS Outpatient PIYUSH MAGDALENO MD [facility] ONC [id number] 09/20/2015 09:35:00 016 23:59:59 CLS Outpatient PIYUSH MAGDALENO MD [facility] RAD RECTAL CA [id number] 03/07/2015 08:52:00 11/05/2 015 23:59:59 CLS Outpatient RASTA REHMAN, PIYUSH estrada [facility] ONC [id number] 02/12/2015 14:13:00 23:59:59 CLS Outpatient RASTA REHMAN, PIYUSH estrada [facility] RAD RECTAL CA [id number] 01/29/2015 14:53:00 015 00:01:00 DIS Outpatient RASTA REHMAN, PIYUSH estrada [facility] ONC [id number] 10/30/2014 14:53:00 015 00:01:00 DIS Outpatient RASTA REHMAN, PIYUSH estrada [facility] ONC [id number] 07/24/2014 14:52:00 015 00:01:00 DIS Outpatient RASTA REHMAN, PIYUSH estrada [facility] ONC [id number] 07/30/2014 09:08:00 015 13:00:00 DIS Outpatient CELINE PELAEZ MD [facility] SDC HISTORY OF COLON CANCE R [id number] 07/26/2014 06:05:00 015 23:59:59 CLS Outpatient CELINE PELAEZ MD [facility] PREOP HISTORY OF COLON CANCE R [id number] 05/19/2014 17:58:00 015 16:15:00 DIS Inpatient CELINE PELAEZ MD [facility] SURGICAL SMALL BOWEL OBSTRUCTION [id number] 04/27/2014 01:13:00 015 15:15:00 DIS Inpatient PIYUSH MAGDALENO MD [facility] 4TH SEPSIS,HYPOTHERMIA [id number] 04/23/2014 08:02:00 014 23:59:59 CLS Outpatient PIYUSH MAGDALENO MD [facility] ONC [id number] 03/22/2014 15:30:00 014 23:59:59 CLS Outpatient Mira SANTIAGO MD [facility] RAD RETENTION OF URINE [id number] 03/14/2014 12:49:00 014 00:01:00 DIS Outpatient RASTA REHMAN, PIYUSH estrada [facility] ONC [id number] 03/13/2014 14:21:00 23:59:59 CLS Outpatient JOEL BUCK KIT [facility] ONC [id number] 02/07/2014 06:08:00 13:40:00 DIS Inpatient CELINE PELAEZ MD [facility] SURGICAL RECTAL CANCER [id number] 02/05/2014 10:10:00 23:59:59 CLS Outpatient CELINE PELAEZ MD [facility] PREOP RECTAL CANCER [id number] 01/17/2014 10:18:00 23:59:59 CLS Outpatient CELINE PELAEZ MD [facility] RAD RECTAL CA [id number] 11/01/2013 07:31:00 17:30:00 DIS Inpatient CELINE PELAEZ MD [facility] SURGICAL COLON CANCER [id number] 10/16/2013 14:29:00 00:01:00 DIS Outpatient RASTA REHMAN, PIYUSH estrada [facility] ONC [id number] 10/30/2013 07:56:00 23:59:59 CLS Outpatient CELINE PELAEZ MD [facility] PREOP COLON CANCER [id number] 10/20/2013 13:07:00 16:30:00 DIS Outpatient CELINE PELAEZ MD [facility] SDC HX COLON CANCER [id number] 10/19/2013 12:12:00 23:59:59 CLS Outpatient CELINE PELAEZ MD [facility] PREOP HX COLON CANCER [id number] 10/19/2013 14:41:00 16:29:00 DIS Outpatient CELINE PELAEZ MD [facility] WOUNDCARE COLON CANCER [id number] 08/07/2013 14:35:00 04/07/2 014 23:59:59 CLS Outpatient JOEL BUCK [facility] ONC [id number] 07/07/2013 08:35:00 23:59:59 CLS Outpatient ELSA ALATORRE MD [facility] RAD OBSTRUCTIVE UROPATHY, B ILAT HYDRONEPHROSIS [id number] 11/23/2012 15:30:00 013 23:59:59 CLS Outpatient [id number] 07/31/2019 09:40:00 P EN Preadmit EYAD MONTEMAYOR DO [facility] ENDO HX COLON CA/GASTRITIS [id number] 07/27/2014 14:04:00 Document Registration
[2019-07-31] MEDS ORDERED: LACTATED RINGERS 1,000 ML IV STA (08:05)
[2019-07-31] MEDS ORDERED: LACTATED RINGERS 1,000 ML IV ONE (08:07)
[2019-07-31] MEDS ORDERED: PROPOFOL INJECTION 50 ML IV ONE (08:13)
[2019-07-31] MEDS ORDERED: HURRICAINE EXT TUBE (BENZOCAINE) XX PRN (08:15)
--- NOTE | 2019-07-31 08:34 | Progress Note-Pre Operative ---
Pre-Operative Progress Note H&P Reviewed The H&P was reviewed, patient examined and no changes noted. Time Seen by Provider: 08:29 Date H&P Reviewed: Jul 31, 2019 Time H&P Reviewed: 08:30 Pre-Operative Diagnosis: Rectal Bleed, Gastritis EYAD MONTEMAYOR DO Jul 31, 2019 08:34
[2019-07-31] MEDS ORDERED: proPOfol 200 MG/20 ML (DIPRIVAN) VIAL IV ONE (08:49)
--- NOTE | 2019-07-31 09:18 | Progress Note-Post Operative ---
Post-Operative Progess Note Surgeon (s)/Dielectric Tester (s) Surgeon EYAD MONTEMAYOR DO Dielectric Tester: none Pre-Operative Diagnosis Rectal Bleed, Gastritis Post-Operative Diagnosis Duodenitis Gastritis Colon Polyps diverticula internal hemorrhoids Procedure & Operative Findings Date of Procedure 07/31/19 Procedure Performed/Findings EGD with bx Colon with snare Anesthesia Type IV sedation by ONCOLOGY PATIENT NAVIGATOR Estimated Blood Loss Estimated blood loss (mL): scant Specimens/Packing Specimens Removed Duodenal bx Antral bx Body of stomach bx Rectal polyps EYAD MONTEMAYOR DO Jul 31, 2019 09:17
--- NOTE | 2019-07-31 09:20 | Endoscopy Discharge Instruct ---
Endo Procedure/Findings Findings 1.: Gastritis 2.: Polyp 3.: Diverticulosis 4.: Internal Hemorrhoids Discharge Instructions - Activity: You might feel a little sleepy until tomorrow. This is due to the medicine you received to relax you. Until tomorrow, you should: NOT drive a car, operate machinery or power tools. NOT drink any alcoholic beverages. NOT make any important decisions or sign importortant papers. Do not return to work until tomorrow, unless otherwise instructed. Resume previo us activities tomorrow. Diet: Start by taking liquids. If you tolerate liquids, advance to solid food. make appointment for one week 1.: Colonscopy in 3 years, EGD in 1 year Notify Physician - If you experience excessive bleeding, unusual abdominal pain, fever, or chest pain, contact your doctor immediately. EYAD MONTEMAYOR DO Jul 31, 2019 09:20
--- NOTE | 2019-07-31 14:57 | OPERATIVE REPORT ---
DATE OF SERVICE: PREOPERATIVE DIAGNOSES: 1. Gastritis. 2. Rectal bleed. 3. History of colon cancer. POSTOPERATIVE DIAGNOSES: 1. Duodenitis. 2. Gastritis. 3. Colon polyps. 4. Diverticula. 5. Internal hemorrhoids. PROCEDURES PERFORMED: 1. EGD with biopsy. 2. Colonoscopy with snare polypectomy. SURGEON: Jeevan Guzman DO. FOOD WRITER: None. ANESTHESIA: IV sedation by the [employer]. SPECIMEN: Biopsy from the duodenum, biopsy from the antrum, biopsy from the body of the stomach as well as rectal polyps, two of them. BLOOD LOSS: Scant. FLUIDS: Per anesthesia. POSTOPERATIVE CONDITION: Stable. INDICATION FOR PROCEDURE: The patient is a 54-year-old male, who has a history of colon cancer. He had an episode of rectal bleeding and has not had a colonoscopy in a while. He also had some gastritis and needed a workup. FINDINGS: The patient had some duodenitis, mild gastritis, appeared to have some tortuosity in the lower esophagus. He had some diverticula. He had two polyps in the rectum and some small internal hemorrhoids. PROCEDURE NOTE: After informed consent was obtained, the patient was brought to the endoscopy suite and placed in bed in the left lateral decubitus position. He was administered IV sedation by the [employer], who then monitored his vitals the entire time, heart rate, blood pressure and pulse ox. We started with the EGD, placed the scope down the mouth through the esophagus; on the way to through the esophagus, he had a lot of retained saliva. This was suctioned out. There appeared to have some tortuosity in the distal portion of the esophagus. Able to finally pushed into the stomach. It did not appear there was a stricture, was able to push down and then into the duodenum and in the duodenum, looked like there was some duodenitis, took a picture and then did a biopsy here, pulled back the scope and did a biopsy of the antrum. Retroflexed the scope and did a biopsy of body of stomach, did not really see a hiatal hernia. Suctioned the air out of the stomach. GE junction looked okay, did not appear to be any creeping up of the Z line and at this point, I then pulled the scope up the esophagus and out the mouth. Switched camera, switched gloves, went down below, started the colonoscopy, pushed in to about 100 cm, able to get all the way to cecum, took a picture of appendiceal orifice, noted the ileocecal valve and then slowly withdrew the scope insufflating, looked circumferentially at the mendoza looking the cecum, up the ascending colon to the hepatic flexure, down the transverse colon, splenic flexure and then down the descending colon, we saw some diverticula, unsure, which portion of the colon, he had removed, but it looked like the low anastomosis and right down near the rectum, saw two polyps, took a picture of these and then did snare polypectomy and then could see some internal hemorrhoids. This was where I believe where the anastomosis was. At this point, I then removed the scope. The patient tolerated the procedure and recovered in endoscopy suite. Job ID: [id number] DocumentID: [id number] Dictated Date: 07/31/2019 10:05:05 [employer]orer [employer] Date: 07/31/2019 14:56:34 Dictated By: JEEVAN GUZMAN DO
--- NOTE | 2019-08-01 09:02 | Anesthesia-General Post-Op ---
MAC Patient Condition Mental Status/LOC: Same as Preop Cardiovascular: Satisfactory Nausea/Vomiting: Absent Respiratory: Satisfactory Pain: Controlled Complications: Absent Post Op Complications Complications None Follow Up Care/Instructions Patient Instructions None needed. Anesthesiology Discharge Order Discharge Order Patient is doing well, no complaints, stable vital signs, no apparent adverse anesthesia problems. No complications reported per nursing. KAYLEIGH CAIN CRNA Aug 01, 2019 09:02
== END 2019-07-31 10:10 | disposition home or self-care (01) ==
LOC: ENDO 07:57
PROVIDERS: ATTEND Surgery
DX: K29.80 Duodenitis without bleeding (principal); K29.00 Acute gastritis without bleeding; K62.1 Rectal polyp; K57.30 Diverticulosis of large intestine without perforation or abscess without bleeding; K64.8 Other hemorrhoids; I10 Essential (primary) hypertension; E78.5 Hyperlipidemia, unspecified; F79 Unspecified intellectual disabilities; G40.909 Epilepsy, unspecified, not intractable, without status epilepticus; Z85.048 Personal history of other malignant neoplasm of rectum, rectosigmoid junction, and anus; Z79.899 Other long term (current) drug therapy

== ENCOUNTER → 2019-10-10 | Outpatient (CLI) | payer MEDICARE | LOC: ONC 14:55 | PROVIDERS: ATTEND Internal Medicine Hematology & Oncology | DX: C20 Malignant neoplasm of rectum (principal); N31.8 Other neuromuscular dysfunction of bladder; F79 Unspecified intellectual disabilities; I10 Essential (primary) hypertension; E78.5 Hyperlipidemia, unspecified; R79.89 Other specified abnormal findings of blood chemistry | CPT/HCPCS: 99213 ==

== ENCOUNTER → 2020-04-02 | Outpatient (CLI) | payer MEDICARE ==
[2020-04-02 15:14] LABS: BASOPHILS % (AUTO) 0 % (0-10); EOSINOPHILS % (AUTO) 0 % (0-10); HEMATOCRIT 44 % (40-54); LYMPHOCYTES # (AUTO) 1.7 10^3/uL (1.0-4.0); LYMPHOCYTES % (AUTO) 19 % (12-44); MEAN CORPUSCULAR HEMOGLOBIN 31 pg (25-34); MEAN CORPUSCULAR HGB CONC 34 g/dL (32-36); MEAN CORPUSCULAR VOLUME 91 fL (80-99); MEAN PLATELET VOLUME 11.5 fL (9.0-12.2); MONOCYTES # (AUTO) 0.9 10^3/uL (0.0-1.0); MONOCYTES % (AUTO) 10 % (0-12); NEUTROPHILS # (AUTO) 6.2 10^3/uL (1.8-7.8); NEUTROPHILS % (AUTO) 70 % (42-75); PLATELET COUNT 162 10^3/uL (130-400); WHITE BLOOD COUNT 8.9 10^3/uL (4.3-11.0)
[2020-04-02 15:36] LABS: ALANINE AMINOTRANSFERASE 27 U/L (0-55); ALBUMIN 4.6 GM/DL (3.2-4.5); ALKALINE PHOSPHATASE 134 U/L (40-136); BILIRUBIN,TOTAL 0.4 MG/DL (0.1-1.0); BUN/CREATININE RATIO 17; CALCIUM 9.2 MG/DL (8.5-10.1); CARBON DIOXIDE 29 MMOL/L (21-32); CHLORIDE 100 MMOL/L (98-107); CREATININE SERUM 1.32 MG/DL (0.60-1.30); GFR ESTIMATED 56; GLUCOSE 92 MG/DL (70-105); POTASSIUM 3.7 MMOL/L (3.6-5.0); SODIUM 140 MMOL/L (135-145); TOTAL PROTEIN 7.9 GM/DL (6.4-8.2)
== END ==
LOC: ONC 15:04
PROVIDERS: ATTEND Internal Medicine Hematology & Oncology
DX: C20 Malignant neoplasm of rectum (principal); N31.8 Other neuromuscular dysfunction of bladder; R79.89 Other specified abnormal findings of blood chemistry
CPT/HCPCS: 80053; 82378; 85025

== ENCOUNTER 2020-07-10 14:49 | Outpatient (RCR) | payer MEDICARE ==
[2020-07-03 14:58] LABS: BASOPHILS % (AUTO) 0 % (0-10); EOSINOPHILS % (AUTO) 0 % (0-10); HEMATOCRIT 42 % (40-54); HEMOGLOBIN 14.2 g/dL (13.3-17.7); LYMPHOCYTES # (AUTO) 1.3 10^3/uL (1.0-4.0); LYMPHOCYTES % (AUTO) 14 % (12-44); MEAN CORPUSCULAR HEMOGLOBIN 31 pg (25-34); MEAN CORPUSCULAR HGB CONC 34 g/dL (32-36); MEAN CORPUSCULAR VOLUME 93 fL (80-99); MEAN PLATELET VOLUME 11.3 fL (9.0-12.2); MONOCYTES # (AUTO) 0.9 10^3/uL (0.0-1.0); MONOCYTES % (AUTO) 10 % (0-12); NEUTROPHILS % (AUTO) 76 % (42-75); PLATELET COUNT 153 10^3/uL (130-400); WHITE BLOOD COUNT 9.2 10^3/uL (4.3-11.0)
[2020-07-03 15:16] LABS: ALANINE AMINOTRANSFERASE 27 U/L (0-55); ALBUMIN 4.3 GM/DL (3.2-4.5); ALKALINE PHOSPHATASE 131 U/L (40-136); BILIRUBIN,TOTAL 0.2 MG/DL (0.1-1.0); BUN/CREATININE RATIO 11; CALCIUM 9.1 MG/DL (8.5-10.1); CARBON DIOXIDE 23 MMOL/L (21-32); CHLORIDE 105 MMOL/L (98-107); CREATININE SERUM 1.22 MG/DL (0.60-1.30); GFR ESTIMATED > 60; GLUCOSE 88 MG/DL (70-105); POTASSIUM 4.5 MMOL/L (3.6-5.0); SODIUM 139 MMOL/L (135-145); TOTAL PROTEIN 7.5 GM/DL (6.4-8.2)
== END 2020-10-01 | disposition home or self-care (01) ==
LOC: ONC 14:49
PROVIDERS: ATTEND Internal Medicine Hematology & Oncology
DX: C20 Malignant neoplasm of rectum (principal); I10 Essential (primary) hypertension; E78.5 Hyperlipidemia, unspecified; F79 Unspecified intellectual disabilities; R94.5 Abnormal results of liver function studies; Z96.0 Presence of urogenital implants
CPT/HCPCS: 80053; 82378; 85025; 99213

== ENCOUNTER 2021-07-22 14:43 | Outpatient (RCR) | payer MEDICARE ==
[2021-07-15 13:39] LABS: BASOPHILS % (AUTO) 0 % (0-10); EOSINOPHILS # (AUTO) 0.1 10^3/uL (0.0-0.3); EOSINOPHILS % (AUTO) 1 % (0-10); HEMATOCRIT 41 % (40-54); HEMOGLOBIN 13.9 g/dL (13.3-17.7); LYMPHOCYTES # (AUTO) 1.7 10^3/uL (1.0-4.0); LYMPHOCYTES % (AUTO) 18 % (12-44); MEAN CORPUSCULAR HEMOGLOBIN 30 pg (25-34); MEAN CORPUSCULAR HGB CONC 34 g/dL (32-36); MEAN CORPUSCULAR VOLUME 89 fL (80-99); MEAN PLATELET VOLUME 10.9 fL (9.0-12.2); MONOCYTES # (AUTO) 0.7 10^3/uL (0.0-1.0); MONOCYTES % (AUTO) 8 % (0-12); NEUTROPHILS # (AUTO) 6.9 10^3/uL (1.8-7.8); NEUTROPHILS % (AUTO) 73 % (42-75); PLATELET COUNT 189 10^3/uL (130-400); WHITE BLOOD COUNT 9.4 10^3/uL (4.3-11.0)
[2021-07-15 13:59] LABS: BILIRUBIN,TOTAL 0.2 MG/DL (0.1-1.0); CREATININE SERUM 1.19 MG/DL (0.60-1.30); POTASSIUM 4.2 MMOL/L (3.6-5.0); TOTAL PROTEIN 7.2 GM/DL (6.4-8.2)
== END 2021-07-31 | disposition home or self-care (01) ==
LOC: ONC 14:43
PROVIDERS: ATTEND Internal Medicine Hematology & Oncology
DX: C20 Malignant neoplasm of rectum (principal); I10 Essential (primary) hypertension; E78.5 Hyperlipidemia, unspecified; F79 Unspecified intellectual disabilities; R94.5 Abnormal results of liver function studies; Z96.0 Presence of urogenital implants
CPT/HCPCS: 36415; 80053; 82378; 85025; 99213

== ENCOUNTER 2022-07-28 12:46 | Outpatient (RCR) | payer MEDICARE ==
[2022-07-14 14:41] LABS: BASOPHILS % (AUTO) 0 % (0-10); EOSINOPHILS % (AUTO) 0 % (0-10); HEMATOCRIT 39 % (40-54); HEMOGLOBIN 13.2 g/dL (13.3-17.7); LYMPHOCYTES % (AUTO) 15 % (12-44); MEAN CORPUSCULAR HEMOGLOBIN 31 pg (25-34); MEAN CORPUSCULAR HGB CONC 34 g/dL (32-36); MEAN CORPUSCULAR VOLUME 89 fL (80-99); MEAN PLATELET VOLUME 11.2 fL (9.0-12.2); MONOCYTES # (AUTO) 0.6 10^3/uL (0.0-1.0); MONOCYTES % (AUTO) 9 % (0-12); NEUTROPHILS # (AUTO) 5.2 10^3/uL (1.8-7.8); NEUTROPHILS % (AUTO) 75 % (42-75); PLATELET COUNT 181 10^3/uL (130-400); WHITE BLOOD COUNT 6.9 10^3/uL (4.3-11.0)
[2022-07-14 15:00] LABS: BILIRUBIN,TOTAL 0.4 MG/DL (0.1-1.0); CALCIUM 9.4 MG/DL (8.5-10.1); CREATININE SERUM 1.14 MG/DL (0.60-1.30); TOTAL PROTEIN 6.8 GM/DL (6.4-8.2)
== END 2022-07-31 | disposition home or self-care (01) ==
LOC: ONC 12:46
PROVIDERS: ATTEND Internal Medicine Hematology & Oncology
DX: C20 Malignant neoplasm of rectum (principal); I10 Essential (primary) hypertension; E78.5 Hyperlipidemia, unspecified
CPT/HCPCS: 36415; 80053; 82274; 82378; 85025

== ENCOUNTER 2022-10-12 14:55 | Outpatient (RCR) | payer MEDICARE ==
[2022-10-05 15:03] LABS: BASOPHILS % (AUTO) 0 % (0-10); EOSINOPHILS % (AUTO) 1 % (0-10); HEMATOCRIT 41 % (40-54); LYMPHOCYTES # (AUTO) 1.2 10^3/uL (1.0-4.0); LYMPHOCYTES % (AUTO) 18 % (12-44); MEAN CORPUSCULAR HEMOGLOBIN 30 pg (25-34); MEAN CORPUSCULAR HGB CONC 34 g/dL (32-36); MEAN CORPUSCULAR VOLUME 88 fL (80-99); MEAN PLATELET VOLUME 10.5 fL (9.0-12.2); MONOCYTES # (AUTO) 0.8 10^3/uL (0.0-1.0); MONOCYTES % (AUTO) 12 % (0-12); NEUTROPHILS # (AUTO) 4.5 10^3/uL (1.8-7.8); NEUTROPHILS % (AUTO) 69 % (42-75); PLATELET COUNT 169 10^3/uL (130-400); WHITE BLOOD COUNT 6.6 10^3/uL (4.3-11.0)
[2022-10-05 15:15] LABS: ALBUMIN 4.2 GM/DL (3.2-4.5); BILIRUBIN,TOTAL 0.3 MG/DL (0.1-1.0); CALCIUM 9.8 MG/DL (8.5-10.1); CREATININE SERUM 1.27 MG/DL (0.60-1.30); POTASSIUM 4.3 MMOL/L (3.6-5.0); TOTAL PROTEIN 7.4 GM/DL (6.4-8.2)
== END 2022-10-30 | disposition home or self-care (01) ==
LOC: ONC 14:55
PROVIDERS: ATTEND Internal Medicine Hematology & Oncology
DX: C20 Malignant neoplasm of rectum (principal); I10 Essential (primary) hypertension; E78.5 Hyperlipidemia, unspecified; R33.9 Retention of urine, unspecified; F79 Unspecified intellectual disabilities; R94.5 Abnormal results of liver function studies
CPT/HCPCS: 36415; 80053; 82378; 82728; 83540; 83550; 85025

== ENCOUNTER → 2023-04-05 | Outpatient (CLI) | payer MEDICARE, MEDICAID | LOC: LAB 14:14 | PROVIDERS: ATTEND Family Medicine | DX: Z51.81 Encounter for therapeutic drug level monitoring (principal); Z13.6 Encounter for screening for cardiovascular disorders; Z12.5 Encounter for screening for malignant neoplasm of prostate | CPT/HCPCS: 36415; 80185; 84153 ==

== ENCOUNTER → 2023-04-12 | Outpatient (CLI) | payer MEDICARE, MEDICAID ==
[2023-04-12 14:25] LABS: CHOLESTEROL 200 MG/DL (< 200); HDL CHOLESTEROL 56 MG/DL (40-60); TRIGLYCERIDES 130 MG/DL (<150); VLDL CHOLESTEROL 26 MG/DL (5-40)
== END ==
LOC: LAB 13:38
PROVIDERS: ATTEND Family Medicine
DX: Z51.81 Encounter for therapeutic drug level monitoring (principal); Z13.6 Encounter for screening for cardiovascular disorders; Z12.5 Encounter for screening for malignant neoplasm of prostate
CPT/HCPCS: 80061; 80185; G0103; 36415; 84153